=== PATIENT | male | born 1945 | race Hispanic/Latino ===

== ENCOUNTER → 2018-11-08 | Outpatient (CLI) | payer MEDICARE ==
[~2018-11-08] MED LIST: DIOVAN160 MG PO; FENOFIBRATE145 MG PO; FLOMAX0.4 MG PO; IBUPROFEN400 MG PO; IOPAMIDOL 370 MG/ML 200 ML INFUS..BTL INJ ONE; LANTUS 3ML100 UNITS/; LEVAQUIN500 MG PO; LEVOTHYROXINE50 MCG PO; MULTI-VITAMIN1 EACH; NOVOLOG MI100 UNIT/1; OMEPRAZOLE40 MG PO; SODIUM CHLORIDE 0.9% 50ML 50 ML ONE
[2018-11-08 16:45] LABS: CREATININE, SERUM 1.27 mg/dL (0.72-1.25)
--- NOTE | 2018-11-08 17:44 | Diagnostic Imaging Report ---
EXAMINATION: CHEST 2 VIEWS INDICATION: ^[id number] ^[id number] COMPARISON: 05/05/2017 FINDINGS: PA and lateral views TUBES and LINES: None. LUNGS: Lungs are well inflated. Mild biapical scarring. There is no evidence of pneumonia or pulmonary edema. PLEURA: No pleural effusion or pneumothorax. HEART AND MEDIASTINUM: The cardiomediastinal silhouette is unremarkable. BONES AND SOFT TISSUES: No acute osseous lesion. Soft tissues are unremarkable. UPPER ABDOMEN: No free air under the diaphragm. IMPRESSION: No acute thoracic abnormality. Signed by: Dr. Robbi Abel MD on 11/08/2018 5:41 PM
--- NOTE | 2018-11-09 07:25 | Diagnostic Imaging Report ---
EXAMINATION: CT of the abdomen and pelvis with contrast. TECHNIQUE: Spiral CT images of the abdomen and pelvis were performed from the lung bases to the lesser trochanters after the intravenous administration of 100 cc Isovue-370 and the oral administration of water. Coronal and sagittal reformatted images were obtained. COMPARISON: CT abdomen and pelvis without contrast 05/05/2017 CLINICAL HISTORY:Abdominal pain DISCUSSION: ABDOMEN/PELVIS: LOWER THORAX:Unremarkable. HEPATOBILIARY: No focal hepatic lesions. No intra-or extrahepatic biliary ductal dilation. Multiple radiopaque calculi within the dependent portion of the gallbladder. No pericholecystic inflammation. SPLEEN: No splenomegaly. PANCREAS: No focal masses or ductal dilatation. ADRENALS: No adrenal nodules. KIDNEYS/URETERS: No hydronephrosis, stones, or solid mass lesions. PELVIC ORGANS/BLADDER: Prostatomegaly with mass effect upon the bladder base, grossly unchanged relative to April 2017. Bladder is otherwise unremarkable. PERITONEUM/RETROPERITONEUM: No ascites. No pneumoperitoneum. LYMPH NODES: No pelvic sidewall, retroperitoneal, or mesenteric lymphadenopathy. VESSELS: Atherosclerotic calcification of the abdominal aorta without aneurysmal dilatation. Major branch vessels are patent. Conventional hepatic arterial anatomy. 2 left renal arteries and 2 right renal arteries. Portal vein, splenic vein, and central superior mesenteric vein are patent. GI TRACT: The large bowel is notable for multiple diverticula along the descending and sigmoid colon, without wall thickening or mesocolic inflammation. The appendix is normal. No small bowel dilatation to suggest obstruction. The stomach is partially collapsed with prominent rugal folds. BONES AND SOFT TISSUE: No osseous destructive lesions. Multilevel degenerative disc changes and facet arthropathy of the lumbar spine. Mild degenerative arthrosis of the hips. No focal soft tissue abnormalities. IMPRESSION: No acute intra-abdominal or pelvic CT abnormalities. Large bowel diverticulosis without evidence of diverticulitis. Cholelithiasis without evidence of acute cholecystitis. Prostatomegaly with resolution of previously noted findings concerning for bladder outlet obstruction. Atherosclerotic vascular disease. Signed by: Dr. Robert Zamora M.D. on 11/09/2018 7:21 AM
== END ==
LOC: CT 15:38
PROVIDERS: ATTEND Internal Medicine
DX: Z01.818 Encounter for other preprocedural examination (principal); R10.9 Unspecified abdominal pain; K57.30 Diverticulosis of large intestine without perforation or abscess without bleeding; K80.20 Calculus of gallbladder without cholecystitis without obstruction; N40.0 Benign prostatic hyperplasia without lower urinary tract symptoms
CPT/HCPCS: 36415; 71046; 74177; 82565; 84520; Q9967; 93005

== ENCOUNTER 2019-04-09 21:56 | Emergency (ER) | payer MEDICARE ==
[~2019-04-09] VITALS: Ht 175.3 cm; Wt 90.3 kg
[~2019-04-09 21:56] MED LIST changes: -IOPAMIDOL 370 MG/ML 200 ML INFUS..BTL INJ ONE; -SODIUM CHLORIDE 0.9% 50ML 50 ML ONE
--- OUTSIDE RECORDS SUMMARY | 2019-04-09 21:58 | XMS REPORT ---
Author Author [facility] Address Unknown Phone Unavailable Care Team Providers Care Picking Crew Supervisor Name Role Phone CATY BHANDARI Unavailable Unavailable Yudelka QUEZADA Unavailable Unavailable Problems This patient has no known problems. Allergies, Adverse Reactions, Alerts This patient has no known allergies or adverse reactions. Medications This patient has no known medications. Results Test Description Test Time Test Comments Text Results Atomic Results Result Comments CT ABDOMEN/PELVIS W 2018-11-09 07:12:00 [facility] [address] [place] [id number] Patient Name: LATIA MAX MR #: [id number] : 1945 Age/Sex: 73/M Req #: [id number] Adm Physician: Ordered by: CATY BHANDARI MD Report #: [id number] Location: CT Room/Bed: Procedure: [id number] CT/CT ABDOMEN/PELVIS W Exam Date: 11/08/18 Exam Time: 1718 REPORT STATUS: Signed EXAMINATION: CT of the abdomen and pelvis with contrast . TECHNIQUE: Spiral CT images of the abdomen and pelvis were performed from the lung bases to the lesser trochanters after the intravenous administration of 100 cc Isovue-370 and the oral administration of water. Coronal and sagittal reformatted images were obtained. COMPARISON: CT abdomen and pelvis without contrast 05/05/2017 CLINICAL HISTORY:Abdominal pain DISCUSSION: ABDOMEN/PELVIS: LOWER THORAX:Unremarkable. HEPATOBILIARY: No focal hepatic lesions. No intra-or extrahepatic biliary ductal dilation. Multiple radiopaque calculi within the dependent portion of the gallbladder. No pericholecystic inflammation. SPLEEN: No splenomegaly. PANCREAS: No focal masses or ductal dilatation. ADRENALS: No adrenal nodules. KIDNEYS/URETERS: No hydronephrosis, stones, or solid mass lesions. PELVIC ORGANS/BLADDER: Prostatomegaly with mass effect upon the bladder base, grossly unchanged relative to April 2017. Bladder is otherwise unremarkable. PERITONEUM/RETROPERITONEUM: No ascites. No pneumoperitoneum. LYMPH NODES: No pelvic sidewall, retroperitoneal, or mesenteric lymphadenopathy. VESSELS: Atherosclerotic calcification of the abdominal aorta without aneurysmal dilatation. Major branch vessels are patent. Conventional hepatic arterial anatomy. 2 left renal arteries and 2 right renal arteries. Portal vein, splenic vein, and central superior mesenteric vein are patent. GI TRACT: The large bowel is notable for multiple diverticula along the descending and sigmoid colon, without wall thickening or mesocolic inflammation. The appendix is normal. No small bowel dilatation to suggest obstruction. The stomach is partially collapsed with prominent rugal folds. BONES AND SOFT TISSUE: No osseous destructive lesions. Multilevel degenerative disc changes and facet arthropathy of the lumbar spine. Mild degenerative arthrosis of the hips. No focal soft tissue abnormalities. IMPRESSION: No acute intra-abdominal or pelvic CT abnormalities. Large bowel diverticulosis without evidence of diverticulitis. Cholelithiasis without evidence of acute cholecystitis. Prostatomegaly with resolution of previously noted findings concerning for bladder outlet obstruction. Atherosclerotic vascular disease. Signed by: Dr. Dai Panda M.D. on 11/09/2018 7:21 AM Dictated By: DAI PANDA MD 0 Transcribed By: ANNE on 11/09/18720 COPY TO: CATY BHANDARI MD CHEST 2 VIEWS 2018-11-08 17:41:00 [place] [address] Patient Name: LATIA MAX MR #: [id number] : 1945 Age/Sex: 73/M Req #: [id number] Adm Physician: Ordered by: CATY BHANDARI MD Report #: [id number] Location: CT Room/Bed: Procedure: [id number] DX/CHEST 2 VIEWS Exam Date: 11/08/18 Exam Time: 1644 REPORT STATUS: Signed EXAMINATION: CHEST 2 VIEWS INDICATION: [id number] COMPARISON: 05/05/2017 FINDINGS: PA and lateral views TUBES and LINES: None. LUNGS: Lungs are well inflated. Mild biapical scarring. There is no evidence of pneumonia or pulmonary edema. PLEURA: No pleural effusion or pneumothorax. HEART AND MEDIASTINUM: The cardiomediastinal silhouette is unremarkable. BONES AND SOFT TISSUES: No acute osseous lesion. Soft tissues are unremarkable. UPPER ABDOMEN: No free air under the diaphragm. IMPRESSION: No acute thoracic abnormality. Signed by: Dr. Robbi Ching MD on 11/08/2018 5:41 PM Dictated By: ROBBI CHING MD 40 Transcribed By: ANNE on 11/08/181740 COPY TO: CATY BHANDARI MD CT ABDOMEN/PELVIS [place] [address] Patient Name: LATIA MAX MR #: [id number] : 1945 Age/Sex: 71/M Req #: [id number] Adm Physician: Ordered by: DAVID QUEZADA MD Report #: [id number] Location: ER Room/Bed: Procedure: [id number] CT/CT ABDOMEN/PELVIS WO Exam Date: 05/05/17 Exam Time: 0100 REPORT STATUS: Signed EXAM: CT ABDOMEN/PELVIS WO DATE: 05/05/2017 1:03 AM INDICATION: Right flank pain COMPARISON: None TECHNIQUE: The abdomen and pelvis were scanned using a multidetector helical scanner. Coronal and sagittal reformations were obtained. Routine protocol performed. IV Contrast: None FINDINGS: Lack of IV contrast decreases sensitivity in evaluating abdominal and pelvic organs. LOWER THORAX: No consolidations LIVER/BILIARY: Question mild hepatic steatosis. GALLBLADDER: Cholelithiasis but otherwise unremarkable SPLEEN: Unremarkable PANCREAS: Unremarkable ADRENALS: No nodules KIDNEYS: Trace right pelvocaliectasis and mild bilateral to the level of the bladder. No obstructing stones are seen. Moderate right greater than left periureteral inflammatory changes. GI TRACT: No distention, wall thickening or evidence of obstruction. Normal appendix. VESSELS: Unremarkable noncontrast appearance PERITONEUM/RETROPERITONEUM: No free air or fluid LYMPH NODES: No lymphadenopathy REPRODUCTIVE ORGANS/BLADDER: Prostatomegaly with mild circumferential bladder wall thickening. SOFT TISSUES: Small fat-containing umbilical hernia. BONES: Multilevel degenerative changes with grade 1 anterolisthesis of L4 over L5 and bilateral L4-5 foraminal narrowing. IMPRESSION: 1. Prostatomegaly with evidence of chronic bladder outlet obstruction and/or acute cystitis. 2. Mild bilateral ureterectasis and right greater than left periureteral inflammatory changes suspicious for ascending infection/pyelitis. No obstructing stones. Note that noncontrast evaluation does not adequately assess for pyelonephritis. Signed by: Dr Isi Moralez MD on 05/05/2017 2:41 AM Dictated By: ISI MORALEZ MD 0 Transcribed By: ANNE on 05/05/17240 COPY TO: DAVID QUEZADA MD CHEST [facility] (PORTABLE) [place] [address] Patient Name: LATIA MAX MR #: [id number] : 1945 Age/Sex: 71/M Req #: [id number] [facility] Physician: Ordered by: DAVID QUEZADA MD Report #: [id number] Location: ER Room/Bed: Procedure: [id number] DX/CHEST SINGLE (PORTABLE) Exam Date: 05/05/17 Exam Time: 44 REPORT STATUS: Signed CHEST SINGLE (PORTABLE), 05/05/2017 12:23 AM Technique: CHEST SINGLE (PORTABLE) Comparison: None available. Clinical history: Fever Findings: Unremarkable portable appearance of the heart, mediastinum, lungs and pleural spaces. Impression: 1. Lines/Tubes: None 2. No acute abnormality. Signed by: Dr Isi Moralez MD on 05/05/2017 2:32 AM Dictated By: ISI MORALEZ MD 1 Transcribed By: ANNE on 05/05/17231 COPY TO: DAVID QUEZADA MD
--- NOTE | 2019-04-09 23:24 | Diagnostic Imaging Report ---
EXAMINATION: CHEST 2 VIEWS INDICATION: Short of breath COMPARISON: Chest radiograph 11/08/2018 FINDINGS: PA and lateral views TUBES and LINES: None. LUNGS: Lungs are well inflated. Lungs are clear. There is no evidence of pneumonia or pulmonary edema. PLEURA: No pleural effusion or pneumothorax. HEART AND MEDIASTINUM: The cardiomediastinal silhouette is unremarkable. BONES AND SOFT TISSUES: No acute osseous lesion. Soft tissues are unremarkable. Degenerative changes in the spine. UPPER ABDOMEN: No free air under the diaphragm. IMPRESSION: No acute thoracic radiographic abnormality. Signed by: Toney Lepe DO on 04/09/2019 11:21 PM
== END 2019-04-09 23:45 | disposition home or self-care (01) ==
LOC: ER 21:56
DX: R09.89 Other specified symptoms and signs involving the circulatory and respiratory systems (principal); J01.10 Acute frontal sinusitis, unspecified; E11.22 Type 2 diabetes mellitus with diabetic chronic kidney disease; I12.9 Hypertensive chronic kidney disease with stage 1 through stage 4 chronic kidney disease, or unspecified chronic kidney disease; E78.5 Hyperlipidemia, unspecified; E03.9 Hypothyroidism, unspecified; K21.9 Gastro-esophageal reflux disease without esophagitis
CPT/HCPCS: 71046; 87400

== ENCOUNTER → 2019-04-22 | Outpatient (CLI) | payer MEDICARE | LOC: CARD 03-27 14:17 | PROVIDERS: ATTEND Internal Medicine | DX: I73.9 Peripheral vascular disease, unspecified (principal) | CPT/HCPCS: 93925 ==

== ENCOUNTER → 2019-07-24 | Outpatient (CLI) | payer MEDICARE ==
--- NOTE | 2019-07-24 15:33 | Diagnostic Imaging Report ---
Right femur, 2 views. History: Right leg pain. Findings: The soft tissues are normal. Bone mineralization is normal. There is no evidence of fracture or dislocation. There are no lytic or sclerotic lesions. There is joint space narrowing and osteophytosis of the right hip and knee. IMPRESSION: Mild degenerative changes of the right hip and knee. Signed by: Jovanny Dias on 07/24/2019 3:30 PM
== END ==
LOC: RAD 14:06
PROVIDERS: ATTEND Internal Medicine
DX: M79.651 Pain in right thigh (principal)

== ENCOUNTER → 2019-08-13 | Outpatient (CLI) | payer MEDICARE | LOC: RAD 08:32 | PROVIDERS: ATTEND Internal Medicine | DX: R07.9 Chest pain, unspecified (principal) | CPT/HCPCS: 93306 ==

== ENCOUNTER 2019-12-17 10:58 | Inpatient (IN) | payer MEDICARE, OTHER ==
[~2019-12-17] VITALS: Ht 175.3 cm; Wt 82.7 kg
[2019-12-17 11:47] LABS: BASOPHILS % 0.1 % (0.0-1.0); HEMATOCRIT 40.1 % (38.2-49.6); HEMOGLOBIN 13.2 g/dL (14.0-18.0); LYMPHOCYTES # (AUTO) 0.7 (1.0-3.2); LYMPHOCYTES % 4.7 % (18.0-39.1); MEAN CORPUSCULAR HGB CONC 32.9 g/dL (31-35); MONOCYTES # (AUTO) 0.7 (0.2-0.8); MONOCYTES % 4.9 % (4.4-11.3); NEUTROPHILS # (AUTO) 12.9 (2.1-6.9); NEUTROPHILS % 89.7 % (38.7-80.0); PLATELET COUNT 210 x10e3/uL (140-360); RED BLOOD COUNT 4.72 x10e6/uL (4.3-5.7); RED CELL DISTRIBUTION WIDTH 14.1 % (11.7-14.4)
[2019-12-17] MEDS ORDERED: AZITHROMYCIN 500MG/NS 250 ML 250 ML IV STA (12:11)
[2019-12-17 12:26] LABS: ALBUMIN 2.7 g/dL (3.5-5.0); ALBUMIN/GLOBULIN RATIO 0.6 (0.8-2.0); ANION GAP 19.6 mmol/L (8-16); CREATININE, SERUM 2.17 mg/dL (0.72-1.25); POTASSIUM 4.6 mmol/L (3.5-5.1)
[2019-12-17] MEDS ORDERED: ALBUTEROL/IPRATROPIUM 3 ML NEB NEB STA (12:26)
--- NOTE | 2019-12-17 12:27 | Emergency Department Note ---
History of Present Illnes History of Present Illness Chief Complaint: COVID PUI History of Present Illness This is a 74 year old male brought by EMS for respiratory distress. Patient with two roomates who had tested positive for COVID-19 virus . Historian: Patient, Head Of Product/EMS Arrival Mode: [facility] Treatment ELDERLY SITTER: O2, EKG, See EMS Report Onset (how long ago): day(s) (3) Severity: severe Onset quality: gradual Duration (how long): day(s) (3) Timing of current episode: constant Progression: worsening Chronicity: new Context: Reports recent illness Relieving factors: none Exacerbating factors: none Associated symptoms: Reports fever/chills, Reports malaise, Reports shortness of breath Treatments prior to arrival: none Past Medical/Family History Physician Review I have reviewed the patient's past medical and family history. Any updates have been documented here. Past Medical History Recent Fever: Yes Clinical Suspicion of Infectio: Yes New/Unexplained Change in Ment: No Past Medical History: Hypertension, Diabetes, Hypothyroidism, GERD, H yperlipedemia, Chronic Kidney Disease Other Medical History: BPH Other Surgery: RIGHT ARM SURGERY Social History Smoking Cessation: Never Smoker Alcohol Use: None Any Illegal Drug Use: No Other Last Tetanus: UNK Review of Systems Review of Systems Constitutional: Reports fever, Reports malaise, Reports weakness EENTM: Reports no symptoms Cardiovascular: Reports no symptoms Respiratory: Reports no symptoms, Reports cough Gastrointestinal: Reports no symptoms Genitourinary: Reports no symptoms Musculoskeletal: Reports no symptoms Integumentary: Reports no symptoms Neurological: Reports no symptoms Psychological: Reports no symptoms Endocrine: Reports no symptoms Hematological/Lymphatic: Reports no symptoms Physical Exam Related Data Allergies: Coded Allergies: No Known Allergies (Unverified , 05/05/17) Triage Vital Signs Vital Signs Date Time Temp Pulse Resp B/P (MAP) Pulse Ox O2 Delivery O2 Flow Rate FiO2 12/17/19 11:00 98.5 86 22 102/45 96 Vital signs reviewed: Yes Physical Exam CONSTITUTIONAL Constitutional: Present diaphoretic, Present distressed, Present ill appearing HENT HENT: Present normocephalic, Present atraumatic, Present oropharynx clear/moist, Present nose normal HENT L/R: Present left ext ear normal, Present right ext ear normal EYES Eyes: Reports PERRL, Reports conjunctivae normal NECK Neck: Present ROM normal PULMONARY Pulmonary: Present respiratory distress, Present other (tachypneic) CARDIOVASCULAR Cardiovascular: Present regular rhythm, Present heart sounds normal, Present capillary refill normal, Present normal rate GASTROINTESTINAL Abdominal: Present soft, Present nontender, Present bowel sounds normal GENITOURINARY Genitourinary: Present exam deferred SKIN Skin: Present warm, Present dry MUSCULOSKELETAL Musculoskeletal: Present ROM normal NEUROLOGICAL Neurological: Present alert, Present oriented x 3, Present no gross motor or sensory deficits PSYCHOLOGICAL Psychological: Present mood/affect normal, Present judgement normal Results Laboratory Result Diagram: 12/17/19 1130 Laboratory Laboratory Tests Test 12/17/19 11:30 White Blood Count 14.39 x10e3/uL (4.8-10.8) Red Blood Count 4.72 x10e6/uL (4.3-5.7) Hemoglobin 13.2 g/dL (14.0-18.0) Hematocrit 40.1 % (38.2-49.6) Mean Corpuscular Volume 85.0 fL (81-99) Mean Corpuscular Hemoglobin 28.0 pg (28-32) Mean Corpuscular Hemoglobin Concent 32.9 g/dL (31-35) Red Cell Distribution Width 14.1 % (11.7-14.4) Platelet Count 210 x10e3/uL (140-360) Neutrophils (%) (Auto) 89.7 % (38.7-80.0) Lymphocytes (%) (Auto) 4.7 % (18.0-39.1) Monocytes (%) (Auto) 4.9 % (4.4-11.3) Eosinophils (%) (Auto) 0.0 % (0.0-6.0) Basophils (%) (Auto) 0.1 % (0.0-1.0) Neutrophils # (Auto) 12.9 (2.1-6.9) Lymphocytes # (Auto) 0.7 (1.0-3.2) Monocytes # (Auto) 0.7 (0.2-0.8) Eosinophils # (Auto) 0.0 (0.0-0.4) Basophils # (Auto) 0.0 (0.0-0.1) Absolute Immature Granulocyte (auto 0.09 x10e3/uL (0-0.1) Lab results reviewed: Yes Imaging Imaging results reviewed: Yes Impressions [facility] [address] [place] [address] Patient Name: LATIA MAX MR #: [id number] : 1945 Age/Sex: 74/M Req #: [id number] Adm Physician: Ordered by: ROBERT COLUNGA DO Report #: [id number] Location: ER Room/Bed: Procedure: [id number] DX/CHEST SINGLE (PORTABLE) Exam Date: 12/17/19 Exam Time: 1200 REPORT STATUS: Signed EXAM: CHEST SINGLE (PORTABLE) DATE: 12/17/2019 12:00 PM INDICATION: Shortness of breath, weakness COMPARISON: 04/09/2019 FINDINGS: The trachea is midline. There are mildly increased interstitial opacities present bilaterally. There is no evidence for large focal consolidation, pneumothorax, or significant pleural effusion. The cardiomediastinal silhouette is within normal limits. No acute osseous abnormality is identified. The surrounding soft tissues are unremarkable. IMPRESSION: Nonspecific mildly increased interstitial markings noted bilaterally. A viral pneumonitis cannot be excluded. No evidence for focal consolidation. Signed by: Dr. Gilmer Palacio MD on 12/17/2019 12:36 PM Dictated By: GILMER PALACIO MD [id number] Transcribed By: ANNE on 12/17/19 1236 COPY TO: ROBERT COLUNGA DO~ Critical Care Time Total Critical Care Time (min): 31 Critcal care necessary due to: respiratory failure Critcal care time spent by me: obtaining hx from patient/surrogate, order/perform tx or interventions, order/review laboratory studies, order/review radiographic studies, pulse oximetry, re-evaluation of patient condition Assessment & Plan Medical Decision Making MDM 74 yom with exposure to roomates with (+) COVID tests brought by EMS in respiratory distress. Patient with initial low oxygen saturation, patient responded well to supplemental oxygen. Diff Dx : Pneumonia, CHF, COVID-19 infection. Plan to admit for continuous pulse oximetry monitoring. Assessment & Plan Final Impression: (1) Acute hypoxemic respiratory failure due to COVID-19 (2) Renal failure Depart Disposition: ADMITTED Last Vital Signs Date Time Temp Pulse Resp B/P (MAP) Pulse Ox O2 Delivery O2 Flow Rate FiO2 12/17/19 12:10 99.7 92 36 100/44 96 Home Meds Reported Medications Atorvastatin Calcium (ATORVASTATIN CALCIUM) 20 Mg Tablet, 20 MG PO DAILY 12/17/19 Pregabalin (Pregabalin) 100 Mg Capsule, 100 MG PO TID 12/17/19 Levothyroxine Sodium (LEVOTHYROXINE SODIUM) 100 Mcg Tablet, 100 MCG PO DAILY 12/17/19 Levofloxacin (LEVAQUIN) 500 Mg Tablet, 500 MG PO DAILY, TAB 05/08/17 Multivitamin (MULTI-VITAMIN DAILY) 1 Each Tablet 05/05/17 Tamsulosin Hcl* (FLOMAX*) 0.4 Mg Cap, 0.4 MG PO DAILY, #30 CAP 05/05/17 Insulin Glargine (LANTUS 3ML PEN) 100 Units/1 Ml Inj, 80 UNITS HS 05/05/17 Insuln Asp Prt/Insulin Aspart (NOVOLOG MIX 70-30 FLEXPEN SYRN) 100 Unit/1 Ml Insuln.pen 05/05/17 Fenofibrate Nanocrystallized (FENOFIBRATE) 145 Mg Tablet, 145 MG PO DAILY 05/05/17 Ibuprofen (IBUPROFEN) 400 Mg Tablet, 800 MG PO Q12H, TAB 05/05/17 Omeprazole (OMEPRAZOLE) 40 Mg Capsule.dr, 40 MG PO DAILY 05/05/17 Medications in the ED Azithromycin 250 ml @ 200 mls/hr ONCE STAT IV ; Start 12/17/19 at 12:11; Stop 12/17/19 at 13:25 ROBERT COLUNGA DO Dec 17, 2019 12:27
[2019-12-17 12:32] LABS: CREATINE KINASE MB 1.7 ng/mL (0-5.0)
[2019-12-17] MEDS ORDERED: ACETAMINOPHEN 325 MG TAB ONE (12:33)
--- NOTE | 2019-12-17 12:40 | Diagnostic Imaging Report ---
EXAM: CHEST SINGLE (PORTABLE) DATE: 12/17/2019 12:00 PM INDICATION: Shortness of breath, weakness COMPARISON: 04/09/2019 FINDINGS: The trachea is midline. There are mildly increased interstitial opacities present bilaterally. There is no evidence for large focal consolidation, pneumothorax, or significant pleural effusion. The cardiomediastinal silhouette is within normal limits. No acute osseous abnormality is identified. The surrounding soft tissues are unremarkable. IMPRESSION: Nonspecific mildly increased interstitial markings noted bilaterally. A viral pneumonitis cannot be excluded. No evidence for focal consolidation. Signed by: Dr. Gilmer Godoy MD on 12/17/2019 12:36 PM
[2019-12-17] MEDS ORDERED: ACETAMINOPHEN 325 MG TAB PO NR (12:45)
--- NOTE | 2019-12-17 13:39 | NUR ---
Contacted [facility] transfer center to transfer patient, spoke with Erena- floor worker transfer bay stated all [facility] facilities are at full capacity. [facility]
--- NOTE | 2019-12-17 13:51 | NUR ---
PT PLACED ON VENTI MASK @ 40%, PT INITIALLY ON NONREABREATHER.
[2019-12-17] MEDS ORDERED: ETOMIDATE 2 MG/ML 10 ML INJ IV ONE (14:51)
[2019-12-17] MEDS ORDERED: SUCCINYLCHOLINE CHLORIDE 20 MG/ML 10ML VIAL ONE (14:51)
[2019-12-17] MEDS ORDERED: MIDAZOLAM HCL 2 MG/2 ML VIAL ONE (14:51)
--- NOTE | 2019-12-17 15:53 | NUR ---
MOT and face sheet given to PRAVEEN Mckeon to attempt transfer to alternate facilities.
--- NOTE | 2019-12-17 19:10 | NUR ---
NURSING REPORT GIVEN TO ROBERTA AMARO.
[2019-12-17] MEDS ORDERED: ALBUTEROL SULFATE HFA 8GM INHALATION AEROSOL INH PRN (19:30)
[2019-12-17] MEDS ORDERED: DEXTROSE 50% SYRINGE 50 ML IV PRN (19:45)
[2019-12-17] MEDS ORDERED: ENOXAPARIN SOD INJ 40 MG/0.4 ML SYR SC SCH (20:30)
[2019-12-17] MEDS: CEFTRIAXONE SOD 1 GM/NS 50 ML 50 ML IV SCH (20:45)
[2019-12-17] MEDS: INSULIN REGULAR, HUMAN 100 UNIT/1 ML 3ML VIAL SQ SCH (21:00)
[2019-12-17] MEDS: INSULIN GLARGINE 100 UNITS/ML VIAL SQ SCH (21:00)
[2019-12-17] MEDS ORDERED: ZOLPIDEM TARTRATE 5 MG TAB PO PRN (21:00)
[2019-12-17] MEDS ORDERED: SODIUM CHLORIDE 0.9% 1000ML 1,000 ML IV ONE (21:00)
[2019-12-17 21:56] LABS: CLARITY,URINE SL CLOUDY (CLEAR); COLOR,URINE STRAW (YELLOW)
[2019-12-17 21:57] LABS: BILIRUBIN,URINE NEGATIVE (NEGATIVE); KETONES,URINE NEGATIVE (NEGATIVE); LEUKOCYTE ESTERASE ,URINE NEGATIVE (NEGATIVE); NITRITE,URINE NEGATIVE (NEGATIVE); PROTEIN,URINE DIPSTICK 1+ (NEGATIVE); URINE UROBILINOGEN 0.2 mg/dL (0.2 - 1)
[2019-12-17 22:08] LABS: BACTERIA,URINE MANY /HPF; EPITHELIAL CELLS,URINE FEW /LPF; WBC,URINE (MAN) 0-5 /HPF (0-5)
[2019-12-17 22:15] VITALS: BP 105/80
[2019-12-17] MEDS ORDERED: ATORVASTATIN CA20 MG PO (23:06)
[2019-12-17] MEDS ORDERED: PREGABALIN100 MG PO (23:06)
[2019-12-17] MEDS ORDERED: LEVOTHYROXINE100 MCG PO (23:06)
--- NOTE | 2019-12-17 23:15 | NUR ---
Patient has blood sugar monitor on left upper arm from home. Results showing blood sugar 174. Patient refusing insulin at this time.
--- NOTE | 2019-12-17 23:19 | NUR ---
Patient currently awake and resting in bed, O2 98% on 3L NC. Denies any needs at this time. Ribeiro catheter patent and draining to gravity, bag hung below bladder. Bed locked and in lowest position, HOB elevated, side rails upx3, call light placed within reach. Patient instructed to call for assistance if needed, verbalized understanding. All safety measures in place. Will continue to monitor.
--- NOTE | 2019-12-17 23:22 | NUR ---
H&P cc: sob HPI: 74yoM, developed sob and cough, after 2 household members were diagnosed with COVID19 infection. Pt is SOB on exertions. PMH: DM2, hypothyroidism, BPH, Sepsis due to E.coli UTI, hematuria, HTN, HLD, PShx: unknown Allergies; see emr Fh/SH; unknown Meds; see MAR ROS; unreliable v/s; revd PE tired appearing anicteric ns1s2 Reduced BS soft nt nd no e/t skin dry flat affect awake; labs/meds revd A/P: Viral pneumonitis- ceftiraxone/azithromycin/dexamethasone; O2 support. MAHI- IVF UTI- IV ceftiraxone DM- lantus; hab1c/lipids BPH- flomax HTN Hypothyroidism- synthroid Prop: lovenox; dispo: f/u COVID testing; Humphrey Feliz MD, PhD.
[2019-12-17 23:27] VITALS: BP 105/80
[2019-12-17 23:30] VITALS: BP 105/80
[2019-12-18] VITALS (8 sets, daily range): BP systolic 98–123; BP diastolic 52–61
--- NOTE | 2019-12-18 01:26 | Consultation ---
DATE OF CONSULTATION: Pulmonary Critical Care Consultation CHIEF COMPLAINT: Fatigue, dyspnea, and fevers. HISTORY OF PRESENT ILLNESS: The patient is a 74-year-old man. He has a history of benign prostatic hypertrophy as well as diabetes and hypertension. He reports feeling ill for about 11 days. He notes fatigue and difficulty breathing. He has malaise. He also had some fevers and some mild cough. He does not complain of abdominal pain, nausea, or vomiting. PAST SURGICAL HISTORY: Status post cystoscopy and retrograde urethrogram. PAST MEDICAL HISTORY: 1. Diabetes. 2. Benign prostatic hypertrophy. 3. Hypertension. 4. Hypothyroidism. ALLERGIES: THE PATIENT HAS NO KNOWN DRUG ALLERGIES. SOCIAL HISTORY: The patient is not a smoker or drinker. FAMILY HISTORY: Significant for hypertension and diabetes. REVIEW OF SYSTEMS: The patient has a fever to 100.3. He also complains of some fatigue and some difficulty breathing. He has some mild cough. He has no chest pain. He has no abdominal pain. He has no nausea or vomiting. He has no leg edema. PHYSICAL EXAMINATION: VITAL SIGNS: The patient is afebrile now, but had a T-max of 100.3. Blood pressure is 104/57, pulse is 80, saturation is 97% on the Venturi mask with 15 L set at 60%. HEENT: Shows no facial swelling or erythema. CARDIAC: Reveals regular rate and rhythm with normal S1 and S2. LUNGS: Auscultation of lungs reveals crackles at the bases. There is no wheezing. ABDOMEN: Soft and nontender. There is no rebound or guarding. EXTREMITIES: Show no leg edema or calf tenderness. There is no cyanosis or clubbing. SKIN: Shows no rashes. NEUROLOGICAL: Shows no focal abnormalities. LABORATORY DATA: White blood cell count is 14.4, hemoglobin is 13.2, and platelet count is 210. The BUN to creatinine ratio is 39 and 2.17. Carbon dioxide is 17 and the anion gap is increased to 19.6. Albumin is 2.7. The COVID serology is pending. RADIOGRAPHIC DATA: Chest x-ray shows increased interstitial markings, possibly suggestive of pneumonitis. IMPRESSION: 1. Viral pneumonia and possible coronavirus disease 2019 infection. 2. Acute kidney injury. 3. Diabetes. 4. History of benign prostatic hypertrophy. 5. History of nephrolithiasis. 6. History of hypothyroidism. 7. History of hypertension. PLAN: 1. IV fluids x1 liter. 2. Begin antibiotics. 3. Ribeiro catheter. 4. Renal ultrasound. 5. Dexamethasone. 6. Await COVID-19 results. MD DIONISIO Denise/SHERICE /[id number]
[2019-12-18] MEDS: LEVOTHYROXINE SODIUM 50 MCG TAB PO SCH (05:48)
[2019-12-18 05:57] LABS: BASOPHILS % 0.1 % (0.0-1.0); EOSINOPHILS % 0.1 % (0.0-6.0); HEMATOCRIT 34.8 % (38.2-49.6); HEMOGLOBIN 11.7 g/dL (14.0-18.0); LYMPHOCYTES # (AUTO) 0.6 (1.0-3.2); LYMPHOCYTES % 5.9 % (18.0-39.1); MEAN CORPUSCULAR HEMOGLOBIN 29.5 pg (28-32); MEAN CORPUSCULAR HGB CONC 33.6 g/dL (31-35); MEAN CORPUSCULAR VOLUME 87.7 fL (81-99); MONOCYTES # (AUTO) 0.3 (0.2-0.8); NEUTROPHILS # (AUTO) 9.2 (2.1-6.9); NEUTROPHILS % 90.4 % (38.7-80.0); PLATELET COUNT 198 x10e3/uL (140-360); RED BLOOD COUNT 3.97 x10e6/uL (4.3-5.7); RED CELL DISTRIBUTION WIDTH 14.6 % (11.7-14.4)
[2019-12-18] MEDS ORDERED: LEVOTHYROXINE SODIUM 50 MCG TAB PO SCH (06:00)
--- NOTE | 2019-12-18 06:06 | NUR ---
Dr. Feliz here to see patient. Received orders to consult Dr. Mireles.
[2019-12-18 06:12] LABS: ALBUMIN 2.1 g/dL (3.5-5.0); ALBUMIN/GLOBULIN RATIO 0.5 (0.8-2.0); ANION GAP 13.9 mmol/L (8-16); CALCIUM 8.4 mg/dL (8.4-10.2); CREATININE, SERUM 2.07 mg/dL (0.72-1.25); POTASSIUM 3.9 mmol/L (3.5-5.1)
--- NOTE | 2019-12-18 06:34 | NUR ---
Routine consult called to Dr. Mireles. Left message with answering service.
[2019-12-18 06:43] LABS: CHOL/HDL RATIO 6.8 (3.9-4.7)
[2019-12-18] MEDS: INSULIN REGULAR, HUMAN 100 UNIT/1 ML 3ML VIAL SQ SCH ×4 (09:59→22:28)
[2019-12-18] MEDS: FENOFIBRATE 145 MG TAB PO SCH (10:06)
[2019-12-18] MEDS: MULTIVITAMINS/MINERALS TAB PO SCH (10:06)
[2019-12-18] MEDS: TAMSULOSIN HCL 0.4 MG CAP PO SCH (10:06)
[2019-12-18] MEDS: DEXAMETHASONE SOD PHOS 10 MG/1 ML VIAL IV SCH (10:06)
[2019-12-18] MEDS: VALSARTAN 160 MG TAB PO SCH (10:06)
[2019-12-18] MEDS: PANTOPRAZOLE SOD 40 MG TABEC PO SCH (10:06)
[2019-12-18 11:10] LABS: ANISOCYTOSIS SLIGHT; LYMPHOCYTES % (MANUAL) 6 % (19-48); MONOCYTES % (MANUAL) 3 % (3.4-9.0); NEUTROPHILS % (MANUAL) 91 % (40-74); PLATELET ESTIMATE ADEQUATE; PLATELET MORPHOLOGY COMMENT NORMAL; RBC MORPHOLOGY COMMENT NORMAL
[2019-12-18] MEDS ORDERED: SODIUM CHLORIDE 0.9% 250ML 250 ML ONE (11:43)
--- NOTE | 2019-12-18 12:01 | Diagnostic Imaging Report ---
EXAM: Renal Ultrasound INDICATION: ^MAHI COMPARISON: CT abdomen and pelvis of 11/08/2018 TECHNIQUE: Transverse and longitudinal images of the kidneys and bladder were obtained. FINDINGS: Right Kidney: Length: 12.4 cm Appearance: Normal echogenicity. Collecting system: No hydronephrosis Stones: None Cyst/Mass: None Left Kidney: Length: 9.2 cm Appearance: Normal echogenicity. Collecting system: No hydronephrosis Stones: None Cyst/Mass: None Bladder: Ribeiro catheter in the decompressed bladder. Incidental note made of hepatic steatosis. IMPRESSION: No hydronephrosis or renal calculi. Hepatic steatosis Signed by: Garrick Tellez MD on 12/18/2019 11:58 AM
[2019-12-18] MEDS: AZITHROMYCIN 500MG/NS 250 ML 250 ML IV SCH (12:14)
--- NOTE | 2019-12-18 13:27 | NUR ---
infectious disease consultation Covid 19 Fatigue, dyspnea, and fevers. HISTORY OF PRESENT ILLNESS: The patient is a 74-year-old man. He has a history of benign prostatic hypertrophy as well as diabetes and hypertension. Patient comes in to the emergency room with his not feeling well with shortness of breath cough fatigue apparently has been sick for about 10-12 days. He notes fatigue and difficulty breathing. He has malaise. He also had some fevers and some mild cough. He does not complain of abdominal pain, nausea, or vomiting. PAST SURGICAL HISTORY: Status post cystoscopy and retrograde urethrogram. PAST MEDICAL HISTORY: 1. Diabetes. 2. Benign prostatic hypertrophy. 3. Hypertension. 4. Hypothyroidism. ALLERGIES: THE PATIENT HAS NO KNOWN DRUG ALLERGIES. SOCIAL HISTORY: The patient is not a smoker or drinker. FAMILY HISTORY: Significant for hypertension and diabetes. REVIEW OF SYSTEMS: The patient has a fever to 100.3. He also complains of some fatigue and some difficulty breathing. He has some mild cough. He has no chest pain. He has no abdominal pain. He has no nausea or vomiting. He has no leg edema. PHYSICAL EXAMINATION: VITAL SIGNS: The patient is afebrile now, but had a T-max of 100.3. Blood pressure is 104/57, pulse is 80, saturation is 97% on the Venturi mask with 15 L set at 60%. HEENT: Shows no facial swelling or erythema. CARDIAC: Reveals regular rate and rhythm with normal S1 and S2. LUNGS: Auscultation of lungs reveals crackles at the bases. There is no wheezing. ABDOMEN: Soft and nontender. There is no rebound or guarding. EXTREMITIES: Show no leg edema or calf tenderness. There is no cyanosis or clubbing. SKIN: Shows no rashes. NEUROLOGICAL: Shows no focal abnormalities. LABORATORY DATA: White blood cell count is 14.4, hemoglobin is 13.2, and platelet count is 210. The BUN to creatinine ratio is 39 and 2.17. Carbon dioxide is 17 and the anion gap is increased to 19.6. Albumin is 2.7. The COVID serology is pending. RADIOGRAPHIC DATA: Chest x-ray shows increased interstitial markings, possibly suggestive of pneumonitis. IMPRESSION: 1. coronavirus disease 2019 infection.I am also concerned about superimposed bacterial infection 2. Acute kidney injury./underlying chronic kidney disease 3. Diabetes. 4. History of benign prostatic hypertrophy. 5. History of nephrolithiasis. 6. History of hypothyroidism. 7. History of hypertension. hypoxemia despite failure present on admission Recommend Rocephin 1 g daily 5 days azithromycin 5 mg IV piggyback daily for 3 days heparin subcu 5000 subcu every 12 hours Decadron 6 mg IV every 24 hours supplement with vitamin C and vitamin D and zinc oxygenation to keep O2 sat more than 91% recheck CBC recheck in panel
[2019-12-18] MEDS ORDERED: ALBUMIN 25% 25GM 100ML 0.25 GM/ML BTL IV ONE (15:45)
--- NOTE | 2019-12-18 16:27 | NUR ---
jeronimo cath removed- patient due to void by [id number]
[2019-12-18] MEDS ORDERED: ALBUMIN 25% 25GM 100ML 100 ML IV ONE (16:30)
--- NOTE | 2019-12-18 16:34 | Progress Note ---
DATE: SUBJECTIVE: The patient received some IV fluids yesterday. His creatinine improved slightly and he feels better. He is down to 2 L of oxygen. He still feels weak. PHYSICAL EXAMINATION: VITAL SIGNS: The patient is afebrile. The blood pressure is 123/55, saturation is 97% on 2 L. T-max is 100.5. HEENT: No facial swelling or erythema. CARDIAC: Regular rate and rhythm with normal S1, S2. LUNGS: Auscultation of lungs reveals rhonchorous breath sounds bilaterally. There is no wheezing. ABDOMEN: Soft, nontender. There is no rebound or guarding. EXTREMITIES: No leg edema or calf tenderness. There is no cyanosis or clubbing. SKIN: No rashes. NEUROLOGICAL: No focal abnormalities. LABORATORY DATA: BUN to creatinine ratio is 50 to 2.07, and the carbon dioxide is 21. Other electrolytes are within normal limits. The albumin is 2.1. White blood cell count is 10.2 and hemoglobin 11.7. Platelet count is 198,000. RADIOGRAPHIC DATA: Renal ultrasound shows no hydronephrosis. Radiographic data shows some mild increased markings of viral pneumonitis. IMPRESSION: 1. Viral pneumonia and coronavirus disease-19 infection. 2. Acute kidney injury. 3. Diabetes. 4. Benign prostatic hypertrophy. 5. History of nephrolithiasis. 6. Hypertension. PLAN: 1. Continue to monitor creatinine and give small amounts of fluid as needed. 2. Discontinue Ribiero. 3. Continue current antibiotics. 4. Continue dexamethasone. 5. Cough suppressant. 6. Monitor and control blood sugars. Rafael Blackburn MD [facility] /[id number]
[2019-12-18] MEDS: INSULIN GLARGINE 100 UNITS/ML VIAL SQ SCH (21:00)
--- NOTE | 2019-12-18 21:45 | NUR ---
IM- progress note O/N see below ROS; unreliable v/s; revd PE tired appearing anicteric ns1s2 Reduced BS soft nt nd no e/t skin dry flat affect awake; labs/meds revd A/P: Viral pneumonitis- ceftiraxone/azithromycin/dexamethasone; O2 support. MAHI- IVF UTI- IV ceftiraxone DM- lantus; hab1c/lipids BPH- flomax HTN Hypothyroidism- synthroid Prop: lovenox; dispo: f/u COVID testing; 7- Hba1c/LDL ; cont care; Humphrey Feliz MD, PhD.
[2019-12-18] MEDS: GUAIFENESIN/CODEINE 10 ML CUP PO PRN (21:47)
--- NOTE | 2019-12-18 21:47 | NUR ---
PATIENT VOIDS IN THE TOILET.
[2019-12-18] MEDS: CEFTRIAXONE SOD 1 GM/NS 50 ML 50 ML IV SCH (22:26)
[2019-12-18] MEDS: HEPARIN SOD (PORCINE) 5,000 UNIT/ML VIAL SC SCH (22:26)
--- NOTE | 2019-12-18 23:43 | NUR ---
Patient wants to take lyrica 100 mg for leg pain. He takes this at home TID. Called Dr. Feliz no answer. Message left. Waiting for reply
[2019-12-19] VITALS (8 sets, daily range): BP systolic 98–115; BP diastolic 53–63
--- NOTE | 2019-12-19 01:00 | NUR ---
No response from Dr. Feliz. Patient refused Tylenol.
[2019-12-19 05:06] LABS: BASOPHILS % 0.1 % (0.0-1.0); HEMOGLOBIN 12.5 g/dL (14.0-18.0); LYMPHOCYTES # (AUTO) 0.5 (1.0-3.2); LYMPHOCYTES % 4.4 % (18.0-39.1); MEAN CORPUSCULAR HEMOGLOBIN 28.3 pg (28-32); MEAN CORPUSCULAR HGB CONC 32.9 g/dL (31-35); MEAN CORPUSCULAR VOLUME 86.2 fL (81-99); MONOCYTES # (AUTO) 0.4 (0.2-0.8); MONOCYTES % 3.7 % (4.4-11.3); NEUTROPHILS # (AUTO) 9.5 (2.1-6.9); NEUTROPHILS % 91.5 % (38.7-80.0); PLATELET COUNT 250 x10e3/uL (140-360); RED BLOOD COUNT 4.41 x10e6/uL (4.3-5.7); RED CELL DISTRIBUTION WIDTH 14.5 % (11.7-14.4)
[2019-12-19 05:29] LABS: ALBUMIN 2.6 g/dL (3.5-5.0); ALBUMIN/GLOBULIN RATIO 0.6 (0.8-2.0); ANION GAP 16.8 mmol/L (8-16); CALCIUM 9.1 mg/dL (8.4-10.2); CREATININE, SERUM 1.43 mg/dL (0.72-1.25); POTASSIUM 4.8 mmol/L (3.5-5.1)
[2019-12-19] MEDS: LEVOTHYROXINE SODIUM 50 MCG TAB PO SCH (05:36)
[2019-12-19] MEDS: INSULIN REGULAR, HUMAN 100 UNIT/1 ML 3ML VIAL SQ SCH ×4 (07:30→21:00)
--- NOTE | 2019-12-19 07:34 | NUR ---
PATIENT IN BED RESTING WITH HEAD OF BED ELEVATED, NO S/S OF DISTRESS. O2 IN PLACE VIA N/C. BED IN LOWER POSITION, CALL LIGHT AT REACH.
[2019-12-19] MEDS: VALSARTAN 160 MG TAB PO SCH (09:00)
[2019-12-19] MEDS: HEPARIN SOD (PORCINE) 5,000 UNIT/ML VIAL SC SCH ×2 (09:02→21:58)
[2019-12-19] MEDS: DEXAMETHASONE SOD PHOS 10 MG/1 ML VIAL IV SCH (09:03)
[2019-12-19] MEDS: TAMSULOSIN HCL 0.4 MG CAP PO SCH (09:03)
[2019-12-19] MEDS: PANTOPRAZOLE SOD 40 MG TABEC PO SCH (09:03)
[2019-12-19] MEDS: FENOFIBRATE 145 MG TAB PO SCH (09:03)
[2019-12-19] MEDS: PREGABALIN 50 MG CAP PO SCH ×3 (09:03→21:55)
[2019-12-19] MEDS: MULTIVITAMINS/MINERALS TAB PO SCH (09:03)
--- NOTE | 2019-12-19 10:33 | Diagnostic Imaging Report ---
EXAMINATION: CHEST SINGLE (PORTABLE) INDICATION: Viral pneumonia COMPARISON: Chest radiograph 12/17/2019 FINDINGS: LINES/TUBES:EKG leads overlie the chest. LUNGS:The lungs are moderately inflated. Persistent bilateral predominantly peripheral hazy airspace opacities. PLEURA:No pleural effusion or pneumothorax. MEDIASTINUM:The cardiomediastinal silhouette appears unchanged in size and shape. BONES/SOFT TISSUES:No acute osseous injury. ABDOMEN:No free air under the diaphragm. IMPRESSION: Persistent bilateral predominantly peripheral hazy airspace opacities consistent with viral pneumonia. Signed by: Garrick Tellez MD on 12/19/2019 10:30 AM
[2019-12-19] MEDS: GUAIFENESIN/CODEINE 10 ML CUP PO PRN ×3 (11:00→22:54)
--- NOTE | 2019-12-19 11:18 | Progress Note ---
DATE: SUBJECTIVE: The patient is seen and evaluated. Available labs and notes reviewed. REVIEW OF SYSTEMS: Still short of breath when ambulates to the bathroom and back, but overall no acute distress. Remains on 2 L of oxygen. Had saturations at 91% to 96%. PHYSICAL EXAMINATION: VITAL SIGNS: Temperature 97.6, pulse 72, respirations 16, and blood pressure 115/53. MEDICATIONS: Dexamethasone, Rocephin, and Zithromax. LABORATORY STUDIES: White count 10.38, hemoglobin 12.5, and platelet 250. Sodium 140, potassium 4.8, and creatinine 1.43, improved from 2.07. Serology; coronavirus PCR positive on 12/16. MICROBIOLOGY: No new microbiology. RADIOLOGY: Chest x-ray from today showed persistent bilateral predominantly perihilar hazy airspace opacities consistent with viral pneumonia. ASSESSMENT AND PLAN: 1. COVID-19 infection. 2. Consider superimposed bacterial infection. 3. Lwxri-sq-tvhtcsc kidney disease, improving creatinine little. 4. Diabetes. 5. Benign prostatic hypertrophy. 6. Hypothyroidism. 7. Hypertension. 8. Nephrolithiasis. 9. Continue with Rocephin 5 days and Zithromax 3 days total. Remains on dexamethasone. Start zinc sulfate and vitamin C. Dictated by Jacky Mcqueen PA-C (Al) Mylene Mireles MD /MODL /[id number]
--- NOTE | 2019-12-19 11:37 | NUR ---
PATIENT NOTED WITH COUGH, PRN COUGH MEDICATION GIVEN ORDERED. NO MORE COUGH OBSERVED. WILL CONTINUE TO MONITOR.
[2019-12-19] MEDS: AZITHROMYCIN 500MG/NS 250 ML 250 ML IV SCH (12:36)
[2019-12-19] MEDS: ZINC SULFATE 220 MG CAP PO SCH (12:36)
[2019-12-19] MEDS: ASCORBIC ACID 500 MG TAB PO SCH (12:36)
--- NOTE | 2019-12-19 12:59 | Progress Note ---
DATE: SUBJECTIVE: The patient's Ribeiro was removed. He is still on 2 L of oxygen. He has some cough, but overall feels improved. PHYSICAL EXAMINATION: VITAL SIGNS: The patient is afebrile. The blood pressure is 115/57 and saturation is 91%. Pulse is 72. HEENT: Shows no facial swelling or erythema. CARDIAC: Reveals regular rate and rhythm with normal S1 and S2. LUNGS: Auscultation of lungs reveals crackles at the bases. There is no wheezing. ABDOMEN: Soft and nontender. There is no rebound or guarding. EXTREMITIES: Shows no leg edema or calf tenderness. There is no cyanosis or clubbing. SKIN: Shows no rashes. NEUROLOGICAL: Shows no focal abnormalities. LABORATORY DATA: BUN to creatinine ratio is improved to 49/1.43. Other electrolytes are within normal limits. White blood cell count is 10.4 and the hemoglobin is 12.5. Platelet count is 250. RADIOGRAPHIC DATA: Chest x-ray shows bilateral pulmonary infiltrates. IMPRESSION: 1. Viral pneumonia and COVID-19 infection. 2. Acute kidney injury. 3. Diabetes. 4. Prostatic hypertrophy. 5. Hypertension. PLAN: 1. Continue to wean oxygen. 2. Complete antibiotics. 3. Complete dexamethasone. 4. Monitor and control blood sugars. Rafael Blackburn MD [facility]/MOD[facility] /[id number]
--- NOTE | 2019-12-19 13:52 | NUR ---
IM- progress note O/N see below ROS; unreliable v/s; revd PE tired appearing anicteric ns1s2 Reduced BS soft nt nd no e/t skin dry flat affect awake; labs/meds revd A/P: Viral pneumonitis- ceftiraxone/azithromycin/dexamethasone; O2 support. MAHI- IVF UTI- IV ceftiraxone DM- lantus; hab1c/lipids BPH- flomax HTN Hypothyroidism- synthroid Prop: lovenox; dispo: f/u COVID testing; 7-1 Hba1c/LDL ; cont care; 7-2 treat cough; improving; Humphrey Feliz MD, PhD.
--- NOTE | 2019-12-19 15:24 | NUR ---
PATIENT AMBULATING IN ROOM WHIT PHYSICAL THERAPY. WILL CLOSELY MONITOR.
[2019-12-19] MEDS: INSULIN GLARGINE 100 UNITS/ML VIAL SQ SCH (21:00)
[2019-12-19] MEDS: CEFTRIAXONE SOD 1 GM/NS 50 ML 50 ML IV SCH (21:55)
[2019-12-20] VITALS (7 sets, daily range): BP systolic 101–134; BP diastolic 51–71
[2019-12-20] MEDS: LEVOTHYROXINE SODIUM 50 MCG TAB PO SCH (05:33)
[2019-12-20] MEDS: INSULIN REGULAR, HUMAN 100 UNIT/1 ML 3ML VIAL SQ SCH ×4 (07:30→21:00)
--- NOTE | 2019-12-20 07:31 | NUR ---
PATIENT ASSISTED TO BED SIDE COMMODE AND BACK TO BED. SHORT OF BREATH WITH EXERTION. IN BED RESTING WITH O2 IN PLACE. CALL LIGHT AT REACH. INSTRUCTED TO CALL FOR ASSISTANCE NEEDED.
[2019-12-20] MEDS: DEXAMETHASONE SOD PHOS 10 MG/1 ML VIAL IV SCH (08:30)
[2019-12-20] MEDS: MULTIVITAMINS/MINERALS TAB PO SCH (09:11)
[2019-12-20] MEDS: FENOFIBRATE 145 MG TAB PO SCH (09:11)
[2019-12-20] MEDS: VALSARTAN 160 MG TAB PO SCH (09:11)
[2019-12-20] MEDS: PANTOPRAZOLE SOD 40 MG TABEC PO SCH (09:11)
[2019-12-20] MEDS: ASCORBIC ACID 500 MG TAB PO SCH (09:11)
[2019-12-20] MEDS: PREGABALIN 50 MG CAP PO SCH ×3 (09:11→21:18)
[2019-12-20] MEDS: ZINC SULFATE 220 MG CAP PO SCH (09:11)
[2019-12-20] MEDS: TAMSULOSIN HCL 0.4 MG CAP PO SCH (09:11)
[2019-12-20] MEDS: HEPARIN SOD (PORCINE) 5,000 UNIT/ML VIAL SC SCH (09:22)
--- NOTE | 2019-12-20 11:10 | NUR ---
PATIENT IN BED RESTING WITH HEAD OF BED ELEVATED, NO DISTRESS NOTED. CALL LIGHT AT REACH.
--- NOTE | 2019-12-20 12:04 | NUR ---
IM- progress note O/N see below ROS; unreliable v/s; revd PE tired appearing anicteric ns1s2 Reduced BS soft nt nd no e/t skin dry flat affect awake; labs/meds revd A/P: Viral pneumonitis- ceftiraxone/azithromycin/dexamethasone; O2 support. MAHI- IVF UTI- IV ceftiraxone DM- lantus; hab1c/lipids BPH- flomax HTN Hypothyroidism- synthroid Prop: lovenox; dispo: f/u COVID testing; 7-1 Hba1c/LDL ; cont care; 7-2 treat cough; improving; 7-3 check renal fn; Humphrey Feliz MD, PhD.
[2019-12-20] MEDS: AZITHROMYCIN 500MG/NS 250 ML 250 ML IV SCH (12:29)
[2019-12-20 12:50] LABS: ANION GAP 12.4 mmol/L (8-16); BLOOD UREA NITROGEN 39 mg/dL (7-26); BUN/CREATININE RATIO 39 (6-25); CALCIUM 8.5 mg/dL (8.4-10.2); CARBON DIOXIDE 22 mmol/L (22-29); CHLORIDE 110 mmol/L (98-107); CREATININE, SERUM 0.99 mg/dL (0.72-1.25); EST GLOMERULAR FILTRATION RATE > 60 ML/MIN (60-); GLUCOSE 173 mg/dL (74-118); POTASSIUM 4.4 mmol/L (3.5-5.1); SODIUM 140 mmol/L (136-145)
--- NOTE | 2019-12-20 14:00 | NUR ---
BLOOD SPECIMEN DRAWN AND SENT TO THE LAB.
--- NOTE | 2019-12-20 15:41 | NUR ---
PATIENT NOTED WITH O2 SAT OF 86% AT REST ON 4L N/C. HEAD OF BED ELEVATED; PATIENT PUT ON 6L NON REBREATHER O2 SAT AT 90-91%. MD NOTIFIED. DR WASHBURN AT BED SIDE AT THIS TIME. PATIENT O2 SAT IMPROVING AT 98% WITH NON REBREATHER. PATIENT STATED I AM FEELING BETTER. NON REBREATHER REMOVED BY MD AND N/C REAPPLIED AT 6L. PATIENT O2 SAT AT 95% AT THIS TIME. WILL CLOSELY MONITOR.
--- NOTE | 2019-12-20 15:57 | NUR ---
PATIENT O2 SAT AT 96% AT THIS TIME. WILL CONTINUE TO MONITOR.
--- NOTE | 2019-12-20 16:25 | NUR ---
CHEST X-RAY COMPLETED AT BED SIDE, PATIENT IN BED RESTING QUIETLY. O2 SAT AT 94%.
--- NOTE | 2019-12-20 16:51 | NUR ---
ORDER RECEIVED FOR HOME O2. CALL TO PT TO DISCUSS CHOICE. STATES HE LIVES IN A DOWNSTAIRS APT W HIS . HAS A CANE. RETIRED [employer]; BUILT APTS. CHOICE WAS PROVIDED. CHOSE [facility]. REFERRAL FAXED TO [facility] @ OFF: [phone] / FAX: [phone].
--- NOTE | 2019-12-20 16:55 | Progress Note ---
DATE: SUBJECTIVE: The patient had some desaturations today and his oxygen had to be increased. He was temporarily on a non-rebreather, but is now back on 6 L and saturating in the mid-to-high 90s. He complains of feeling weak. He has mild cough. He does not complain of dyspnea. He notes some mild diarrhea. PHYSICAL EXAMINATION: VITAL SIGNS: The patient is afebrile. The blood pressure is 101/51 and saturation is 96% on 6 L. HEENT: No facial swelling or erythema. CARDIAC: Regular rate and rhythm with normal S1, S2. LUNGS: Auscultation of lungs reveals rhonchorous breath sounds bilaterally. There is no wheezing. ABDOMEN: Soft, nontender. There is no rebound or guarding. EXTREMITIES: No leg edema or calf tenderness. There is no cyanosis or clubbing. SKIN: No rashes. NEUROLOGICAL: Diffuse weakness. LABORATORY DATA: BUN to creatinine ratio is 39 to 0.99. Other electrolytes are within normal limits. White blood cell count is 10.3 and hemoglobin is 12.5. The platelet count is 250. IMPRESSION: 1. Viral pneumonia and coronavirus disease-19 infection. 2. Acute kidney injury. 3. Urinary tract infection. 4. Diabetes. 5. Hypertension. 6. Benign prostatic hypertrophy. PLAN: 1. Repeat x-ray now. 2. Continue physical therapy. 3. Continue antibiotics and Decadron. 4. Continue to monitor creatinine and blood sugars. 5. Possible transfer to longterm. Rafael Blackburn MD [facility]/SHERICE /[id number]
--- NOTE | 2019-12-20 17:14 | Diagnostic Imaging Report ---
EXAMINATION: CHEST SINGLE (PORTABLE) INDICATION: ^viral pneumonia ^[id number] ^[id number] COMPARISON: Chest radiograph 12/19/2019 FINDINGS: AP view TUBES and LINES: None. LUNGS: Lungs are well inflated. Unchanged bilateral multifocal consolidations. PLEURA: No pleural effusion or pneumothorax. HEART AND MEDIASTINUM: The cardiomediastinal silhouette is unremarkable.. BONES AND SOFT TISSUES: No acute osseous lesion. Soft tissues are unremarkable. UPPER ABDOMEN: No free air under the diaphragm. IMPRESSION: Stable bilateral diffuse multifocal viral pneumonia. Signed by: Dr. Jenn Ruffin M.D. on 12/20/2019 5:11 PM
--- NOTE | 2019-12-20 18:20 | NUR ---
DR MARTEL AND DR WASHBURN IN TO SEE PATIENT. PATIENT IN BED WITH HEAD OF BED ELEVATED, NO DISTRESS NOTED. 02 SAT AT 99% ON 5L N/C. WILL CONTINUE TO MONITOR.
--- NOTE | 2019-12-20 20:07 | NUR ---
received report from day nurse. patient is resting comfortably in the bed. bed is in the lowest position and call light is within reach. will continue to monitor patient.
[2019-12-20] MEDS: INSULIN GLARGINE 100 UNITS/ML VIAL SQ SCH (21:00)
[2019-12-20] MEDS: GUAIFENESIN/CODEINE 10 ML CUP PO PRN (21:17)
[2019-12-20] MEDS: CEFTRIAXONE SOD 1 GM/NS 50 ML 50 ML IV SCH (21:18)
[2019-12-20] MEDS: ENOXAPARIN INJ 80 MG/0.8 ML SYR SC SCH (21:18)
[2019-12-21] VITALS (8 sets, daily range): BP systolic 111–120; BP diastolic 55–68
[2019-12-21] MEDS: LEVOTHYROXINE SODIUM 50 MCG TAB PO SCH (06:42)
[2019-12-21] MEDS: INSULIN REGULAR, HUMAN 100 UNIT/1 ML 3ML VIAL SQ SCH ×4 (07:30→21:00)
[2019-12-21] MEDS: MULTIVITAMINS/MINERALS TAB PO SCH (08:22)
[2019-12-21] MEDS: TAMSULOSIN HCL 0.4 MG CAP PO SCH (08:22)
[2019-12-21] MEDS: ASCORBIC ACID 500 MG TAB PO SCH ×2 (08:22→17:58)
[2019-12-21] MEDS: VALSARTAN 160 MG TAB PO SCH (08:22)
[2019-12-21] MEDS: ENOXAPARIN INJ 80 MG/0.8 ML SYR SC SCH ×2 (08:22→21:29)
[2019-12-21] MEDS: DEXAMETHASONE SOD PHOS 10 MG/1 ML VIAL IV SCH (08:22)
[2019-12-21] MEDS: PANTOPRAZOLE SOD 40 MG TABEC PO SCH (08:22)
[2019-12-21] MEDS: FENOFIBRATE 145 MG TAB PO SCH (08:22)
[2019-12-21] MEDS: PREGABALIN 50 MG CAP PO SCH ×3 (08:22→21:29)
[2019-12-21] MEDS: ZINC SULFATE 220 MG CAP PO SCH (08:22)
--- NOTE | 2019-12-21 11:26 | NUR ---
patient c/o SOB O2 sat 89% on rebreather masK, Dr Laura Blackburn here at bed side, new orders recvd, Respiratory therapist here, patient not in any acute distress
[2019-12-21] MEDS: AZITHROMYCIN 500MG/NS 250 ML 250 ML IV SCH (11:44)
--- NOTE | 2019-12-21 11:58 | NUR ---
IM- progress note O/N see below ROS; unreliable v/s; revd PE tired appearing anicteric ns1s2 Reduced BS soft nt nd no e/t skin dry flat affect awake; labs/meds revd A/P: Viral pneumonitis- ceftiraxone/azithromycin/dexamethasone; O2 support. MAHI- IVF UTI- IV ceftiraxone DM- lantus; hab1c/lipids BPH- flomax HTN Hypothyroidism- synthroid Prop: lovenox; dispo: f/u COVID testing; 7-1 Hba1c/LDL ; cont care; 7-2 treat cough; improving; 7-3 check renal fn; 7-4 renal fn improving; SNF pending; Humphrey Feliz MD, PhD.
--- NOTE | 2019-12-21 13:43 | Progress Note ---
DATE: SUBJECTIVE: The patient is now on 100% non-rebreather. He reports more dyspnea, especially when he has bowel movement or has any exertion. He does not have fever. PHYSICAL EXAMINATION: VITAL SIGNS: The blood pressure is 118/68 and pulse is 76. Respiratory rate is 24 and saturation is 96% on a non-rebreather. HEENT: Shows no facial swelling or erythema. CARDIAC: Reveals regular rate and rhythm with normal S1 and S2. LUNGS: Auscultation of lungs reveals crackles at the bases. There is no wheezing. ABDOMEN: Soft and nontender. There is no rebound or guarding. EXTREMITIES: Shows no leg edema or calf tenderness. There is no cyanosis or clubbing. SKIN: Shows no rashes. LABORATORY DATA: The BUN to creatinine ratio is 39 to 0.99. The other electrolytes are within normal limits. The glucose is 173. RADIOGRAPHIC DATA: Chest x-ray shows bilateral infiltrates consistent with viral pneumonia. IMPRESSION: 1. Acute respiratory failure. 2. Viral pneumonia and COVID-19 infection. 3. Acute kidney injury. 4. Diabetes. 5. Hypertension. 6. Benign prostatic hypertrophy. PLAN: 1. Switch the patient to Vapotherm with 40 L and 100% FiO2. 2. Transfer the patient to intensive care unit. 3. Continue current antibiotics. 4. Continue dexamethasone. 5. Continue Lovenox. 6. Continue to monitor and control blood sugars. 7. Case discussed with nursing staff, Respiratory, patient, administration, Infectious Disease, and Internal Medicine. Greater than 35 minutes in direct critical care time. MD DIONIS[facility]/SHERICE /[id number]
--- NOTE | 2019-12-21 14:27 | NUR ---
DEE SPOKE W JANET IN IMCU REGARDING PT DC'ING W HOME O2. STATES THE PT IS NOT STABLE TO DC HOME AT THIS TIME.
[2019-12-21] MEDS: CHOLECALCIFEROL 400 UNIT TAB PO SCH (17:58)
--- NOTE | 2019-12-21 18:23 | NUR ---
patient up in bed, on rebreather mask 15L . not in any distress, tolerated dinner, denies any pain, keep monitoring
[2019-12-21] MEDS: INSULIN GLARGINE 100 UNITS/ML VIAL SQ SCH (21:00)
[2019-12-21] MEDS: CEFTRIAXONE SOD 1 GM/NS 50 ML 50 ML IV SCH (21:29)
[2019-12-21] MEDS: GUAIFENESIN/CODEINE 10 ML CUP PO PRN (21:49)
[2019-12-22] VITALS (8 sets, daily range): BP systolic 109–127; BP diastolic 55–71
[2019-12-22] MEDS: ACETAMINOPHEN 325 MG TAB PO PRN (02:55)
[2019-12-22 05:35] LABS: BASOPHILS % 0.2 % (0.0-1.0); HEMATOCRIT 37.9 % (38.2-49.6); HEMOGLOBIN 12.5 g/dL (14.0-18.0); LYMPHOCYTES # (AUTO) 0.4 (1.0-3.2); LYMPHOCYTES % 6.1 % (18.0-39.1); MEAN CORPUSCULAR VOLUME 84.8 fL (81-99); MONOCYTES # (AUTO) 0.2 (0.2-0.8); MONOCYTES % 2.9 % (4.4-11.3); NEUTROPHILS # (AUTO) 5.9 (2.1-6.9); NEUTROPHILS % 90.2 % (38.7-80.0); PLATELET COUNT 325 x10e3/uL (140-360); RED BLOOD COUNT 4.47 x10e6/uL (4.3-5.7); RED CELL DISTRIBUTION WIDTH 13.9 % (11.7-14.4)
[2019-12-22] MEDS: LEVOTHYROXINE SODIUM 50 MCG TAB PO SCH (06:03)
[2019-12-22 06:15] LABS: ALANINE AMINOTRANSFERASE 52 IU/L (0-55); ALBUMIN 2.1 g/dL (3.5-5.0); ALBUMIN/GLOBULIN RATIO 0.5 (0.8-2.0); ALKALINE PHOSPHATASE 45 IU/L (40-150); ANION GAP 11.3 mmol/L (8-16); BLOOD UREA NITROGEN 25 mg/dL (7-26); BUN/CREATININE RATIO 30 (6-25); CALCIUM 8.6 mg/dL (8.4-10.2); CARBON DIOXIDE 26 mmol/L (22-29); CHLORIDE 110 mmol/L (98-107); CREATININE, SERUM 0.84 mg/dL (0.72-1.25); EST GLOMERULAR FILTRATION RATE > 60 ML/MIN (60-); GLUCOSE 118 mg/dL (74-118); POTASSIUM 4.3 mmol/L (3.5-5.1); SODIUM 143 mmol/L (136-145)
--- NOTE | 2019-12-22 06:47 | NUR ---
patient is resting in the bed. bed is in the lowest position and call light is within reach.
--- NOTE | 2019-12-22 06:54 | Diagnostic Imaging Report ---
EXAMINATION: CHEST SINGLE (PORTABLE) INDICATION: ^resp failure COMPARISON: 12/20/2019 FINDINGS: AP view TUBES and LINES: None. LUNGS: Unchanged patchy airspace disease. PLEURA: No pleural effusion or pneumothorax. HEART AND MEDIASTINUM: The cardiomediastinal silhouette is unremarkable. BONES AND SOFT TISSUES: No acute osseous lesion. Soft tissues are unremarkable. UPPER ABDOMEN: No free air under the diaphragm. IMPRESSION: Unchanged patchy airspace disease consistent with known viral pneumonia. Signed by: Jean-Paul Donahue MD on 12/22/2019 6:51 AM
[2019-12-22] MEDS: INSULIN REGULAR, HUMAN 100 UNIT/1 ML 3ML VIAL SQ SCH ×4 (08:14→21:38)
[2019-12-22] MEDS: PREGABALIN 50 MG CAP PO SCH ×3 (09:00→21:37)
[2019-12-22] MEDS: MULTIVITAMINS/MINERALS TAB PO SCH (09:55)
[2019-12-22] MEDS: DEXAMETHASONE SOD PHOS 10 MG/1 ML VIAL IV SCH (09:55)
[2019-12-22] MEDS: VALSARTAN 160 MG TAB PO SCH (09:55)
[2019-12-22] MEDS: TAMSULOSIN HCL 0.4 MG CAP PO SCH (09:55)
[2019-12-22] MEDS: ENOXAPARIN INJ 80 MG/0.8 ML SYR SC SCH ×2 (09:56→21:37)
[2019-12-22] MEDS: PANTOPRAZOLE SOD 40 MG TABEC PO SCH (09:56)
[2019-12-22] MEDS: CHOLECALCIFEROL 400 UNIT TAB PO SCH ×2 (09:56→17:36)
[2019-12-22] MEDS: ZINC SULFATE 220 MG CAP PO SCH (09:56)
[2019-12-22] MEDS: FENOFIBRATE 145 MG TAB PO SCH (09:56)
[2019-12-22] MEDS: ASCORBIC ACID 500 MG TAB PO SCH ×2 (09:56→17:36)
[2019-12-22 09:59] LABS: LYMPHOCYTES % (MANUAL) 5 % (19-48); MONOCYTES % (MANUAL) 2 % (3.4-9.0); NEUTROPHILS % (MANUAL) 93 % (40-74); PLATELET ESTIMATE ADEQUATE; PLATELET MORPHOLOGY COMMENT NORMAL; RBC MORPHOLOGY COMMENT NORMAL
[2019-12-22] MEDS: AZITHROMYCIN 500MG/NS 250 ML 250 ML IV SCH (12:31)
--- NOTE | 2019-12-22 14:39 | NUR ---
IM- progress note O/N see below ROS; unreliable v/s; revd PE tired appearing anicteric ns1s2 Reduced BS soft nt nd no e/t skin dry flat affect awake; labs/meds revd A/P: Viral pneumonitis- ceftiraxone/azithromycin/dexamethasone; O2 support. MAHI- IVF UTI- IV ceftiraxone DM- lantus; hab1c/lipids BPH- flomax HTN Hypothyroidism- synthroid Prop: lovenox; dispo: f/u COVID testing; 7-1 Hba1c/LDL ; cont care; 7-2 treat cough; improving; 7-3 check renal fn; 7-4 renal fn improving; SNF pending; 7-5 cont supportive care; Humphrey Feliz MD, PhD.
--- NOTE | 2019-12-22 15:42 | Progress Note ---
DATE: Pulmonary Critical Care Progress Note SUBJECTIVE: The patient is still on high-flow oxygen with a non-rebreather. He feels slightly better than yesterday. He is not complaining of cough. He does have severe weakness. PHYSICAL EXAMINATION: VITAL SIGNS: The blood pressure is 115/53, saturation is in the mid 90s on non-rebreather with a high-flow oxygen underneath. HEENT: Shows no facial swelling or erythema. CARDIAC: Reveals regular rate and rhythm with normal S1 and S2. LUNGS: Auscultation of lungs reveals rhonchorous breath sounds bilaterally. There is no wheezing. ABDOMEN: Soft, nontender. There is no rebound or guarding. EXTREMITIES: Shows no leg edema or calf tenderness. There is no cyanosis or clubbing. SKIN: Shows no rashes. NEUROLOGIC: Shows no focal abnormalities. LABORATORY DATA: White blood cell count is 6.5 and hemoglobin is 12.5. The platelet count is 325. BUN to creatinine ratio is 25 to 0.84. Other electrolytes are within normal limits. Albumin is 2.1. RADIOGRAPHIC DATA: Chest x-ray shows bilateral infiltrates. IMPRESSION: 1. Acute respiratory failure. 2. Viral pneumonia, coronavirus disease-19 infection. 3. Acute kidney injury. 4. Diabetes. 5. Hypertension. PLAN: 1. Continue high-flow oxygen with 100% FiO2. 2. Continue dexamethasone. 3. Lovenox. 4. Continue to monitor electrolytes, BUN, creatinine and CBC. 5. Transfer to ICU when bed is available. Rafael Blackburn MD [facility] /[id number]
--- NOTE | 2019-12-22 16:11 | Diagnostic Imaging Report ---
EXAMINATION: CT of the chest with contrast, PE protocol. TECHNIQUE: Spiral CT images of the chest were performed from the lung apices through the level of the adrenal glands after the IV administration of 100 cc of Isovue 370. Thin section reconstructions were obtained with special concentration on the pulmonary arteries. Correlate site and reformatted images were performed. COMPARISON: Portable chest 12/22/2019, 12/20/2019 and 12/19/2019 CLINICAL HISTORY:Shortness of breath, respiratory failure, COVID-19 DISCUSSION: Lungs: No filling defects are identified in the main, right or left pulmonary arteries to their segmental levels, to suggest pulmonary embolism. Diffuse bilateral predominantly peripheral groundglass opacities with visible intralobular lines, with more confluent areas of consolidation and air bronchograms in bilateral lower lobes. No pulmonary nodules or masses. Airways: <The major airways are clear.> Pleura: <There is no evidence of pleural effusion or pneumothorax.> Heart and mediastinum: Thyroid is unremarkable. Heart size is normal. No pericardial effusion. Aorta is nonaneurysmal. Main pulmonary artery is normal in caliber. Lymph nodes: Enlarged right upper endotracheal lymph node which measures 1.2 cm in short axis (series 2, image 38). Enlarged right lower paratracheal lymph node which measures 1.2 cm in short axis (series 2, image 50). Enlarged subcarinal lymph node which measures 1.4 cm in short axis (series 2, image 61). No hilar or axillary adenopathy. Abdomen: The visualized portions of the liver, spleen, pancreas, adrenal glands and right kidney are unremarkable. Multiple stones are noted in the gallbladder lumen. Radiopaque density in the superior pole of the left kidney which is partially visualized . Bones and soft tissues: No aggressive lytic or suspicious focal sclerotic lesion. Multilevel degenerative disks in the thoracic spine soft tissues are grossly unremarkable. IMPRESSION: 1. No CT evidence of pulmonary embolism. 2. Commonly reported imaging features of COVID-19 pneumonia are present. Other processes such as influenza pneumonia and organizing pneumonia, as can be seen with drug toxicity and connected tissue disease, can cause a similar imaging pattern. 3 Mediastinal adenopathy, as described, likely reactive. 4 Cholelithiasis without evidence of cholecystitis. 5. Radiopaque density in the superior pole of the left kidney is partially visualized and may represent a nonobstructing calculus. Signed by: Kenny TillmanD. on 12/22/2019 4:08 PM
--- NOTE | 2019-12-22 18:29 | NUR ---
patient resting in bed, not in any distress on Non breather mask 15L and Vapotherm , tolerated diet, keep monitoring
[2019-12-22] MEDS ORDERED: SODIUM CHLORIDE 0.9% 50ML 50 ML ONE (19:15)
[2019-12-22] MEDS ORDERED: IOPAMIDOL 370 MG/ML 200 ML INFUS..BTL INJ ONE (19:15)
[2019-12-22] MEDS: GABAPENTIN 100 MG CAP PO SCH (21:37)
[2019-12-22] MEDS: INSULIN GLARGINE 100 UNITS/ML VIAL SQ SCH (21:40)
[2019-12-22] MEDS: CEFTRIAXONE SOD 1 GM/NS 50 ML 50 ML IV SCH (22:04)
--- NOTE | 2019-12-22 22:13 | NUR ---
PATIENT WAS TRANSFERRED FROM [address] OBS UNIT, AWAKE ALER ORIENTED, TRANSFERRED WITH BED, DUE TO O2 SATURATION KEEPS DROPPING. PT NOW IN VAPOTHERM 30 L /100% , SAT 02 NOW IS 93 %. DENIED ANY PAIN, NO DISTRESS NOTED, ABLE TO VERBALIZES NEEDS.
[2019-12-23] VITALS (26 sets, daily range): BP systolic 99–130; BP diastolic 48–81
[2019-12-23] MEDS: GUAIFENESIN/CODEINE 10 ML CUP PO PRN (00:05)
--- NOTE | 2019-12-23 06:41 | Diagnostic Imaging Report ---
EXAMINATION: CHEST SINGLE (PORTABLE) INDICATION: ^resp failure COMPARISON: 12/22/2019 FINDINGS: AP view TUBES and LINES: None. LUNGS: Unchanged patchy airspace disease. PLEURA: No pleural effusion or pneumothorax. HEART AND MEDIASTINUM: The cardiomediastinal silhouette is unremarkable. BONES AND SOFT TISSUES: No acute osseous lesion. Soft tissues are unremarkable. UPPER ABDOMEN: No free air under the diaphragm. IMPRESSION: Unchanged pulmonary airspace disease consistent with provided history of viral pneumonia. Signed by: Jean-Paul Donahue MD on 12/23/2019 6:37 AM
[2019-12-23] MEDS: GABAPENTIN 100 MG CAP PO SCH ×3 (06:43→21:40)
[2019-12-23] MEDS: LEVOTHYROXINE SODIUM 50 MCG TAB PO SCH (06:43)
--- NOTE | 2019-12-23 07:01 | NUR ---
REPORTS GIVEN TO UPCOMING SHIFT,CULLEN WATSON.
[2019-12-23] MEDS: INSULIN REGULAR, HUMAN 100 UNIT/1 ML 3ML VIAL SQ SCH ×4 (07:30→21:50)
[2019-12-23 08:12] LABS: BASOPHILS % 0.1 % (0.0-1.0); EOSINOPHILS % 0.3 % (0.0-6.0); LYMPHOCYTES # (AUTO) 0.4 (1.0-3.2); LYMPHOCYTES % 4.6 % (18.0-39.1); MEAN CORPUSCULAR HEMOGLOBIN 27.8 pg (28-32); MEAN CORPUSCULAR HGB CONC 32.5 g/dL (31-35); MEAN CORPUSCULAR VOLUME 85.7 fL (81-99); MONOCYTES # (AUTO) 0.2 (0.2-0.8); MONOCYTES % 2.7 % (4.4-11.3); NEUTROPHILS # (AUTO) 8.1 (2.1-6.9); NEUTROPHILS % 91.6 % (38.7-80.0); PLATELET COUNT 306 x10e3/uL (140-360); RED BLOOD COUNT 4.67 x10e6/uL (4.3-5.7); RED CELL DISTRIBUTION WIDTH 13.8 % (11.7-14.4)
[2019-12-23 08:30] LABS: ALANINE AMINOTRANSFERASE 38 IU/L (0-55); ALBUMIN/GLOBULIN RATIO 0.5 (0.8-2.0); ALKALINE PHOSPHATASE 46 IU/L (40-150); ANION GAP 13.2 mmol/L (8-16); BLOOD UREA NITROGEN 23 mg/dL (7-26); BUN/CREATININE RATIO 29 (6-25); CALCIUM 8.4 mg/dL (8.4-10.2); CARBON DIOXIDE 24 mmol/L (22-29); CHLORIDE 107 mmol/L (98-107); CREATININE, SERUM 0.79 mg/dL (0.72-1.25); EST GLOMERULAR FILTRATION RATE > 60 ML/MIN (60-); GLUCOSE 91 mg/dL (74-118); POTASSIUM 4.2 mmol/L (3.5-5.1); SODIUM 140 mmol/L (136-145)
--- NOTE | 2019-12-23 08:58 | NUR ---
Pt now placed on PT hold d/t being transferred to ICU for higher level of care. Pt will now be placed on PT hold and will need new orders to resume skilled PT. Addendum: 12/23/19 at 0900 by SUAD JEREZ PTA Amended: Links added.
[2019-12-23] MEDS: PREGABALIN 50 MG CAP PO SCH ×3 (08:59→21:40)
[2019-12-23] MEDS: FENOFIBRATE 145 MG TAB PO SCH (08:59)
[2019-12-23] MEDS: VALSARTAN 160 MG TAB PO SCH (08:59)
[2019-12-23] MEDS: TAMSULOSIN HCL 0.4 MG CAP PO SCH (08:59)
[2019-12-23] MEDS: ZINC SULFATE 220 MG CAP PO SCH (08:59)
[2019-12-23] MEDS: CHOLECALCIFEROL 400 UNIT TAB PO SCH ×2 (08:59→16:18)
[2019-12-23] MEDS: ASCORBIC ACID 500 MG TAB PO SCH ×2 (08:59→16:18)
[2019-12-23] MEDS: MULTIVITAMINS/MINERALS TAB PO SCH (08:59)
[2019-12-23] MEDS: DEXAMETHASONE SOD PHOS 10 MG/1 ML VIAL IV SCH (08:59)
[2019-12-23] MEDS: PANTOPRAZOLE SOD 40 MG TABEC PO SCH (08:59)
[2019-12-23] MEDS: ENOXAPARIN INJ 80 MG/0.8 ML SYR SC SCH ×2 (09:00→21:40)
[2019-12-23 09:30] LABS: LYMPHOCYTES % (MANUAL) 6 % (19-48); MONOCYTES % (MANUAL) 1 % (3.4-9.0); NEUTROPHILS % (MANUAL) 93 % (40-74); PLATELET ESTIMATE ADEQUATE; PLATELET MORPHOLOGY COMMENT FEW EDTA CLUMPING; RBC MORPHOLOGY COMMENT NORMAL
[2019-12-23] MEDS: AZITHROMYCIN 500MG/NS 250 ML 250 ML IV SCH (12:48)
--- NOTE | 2019-12-23 13:46 | NUR ---
Nutrition Intervention Note RD Recommendation(s) for Physician: - Recommend adding 1800 ADA to current diet - Recommend Glucerna Shake TID for adequacy - If poor intake continues or pt is intubated, recommend TF of Vital AF with goal rate of 55 ml/hr (1584 kcal and 99 gm protein). Water flushes per MD. Plan of Care: RD following, diet, ONS, and TF rec's monitoring for tolerance and adequacy Nutrition reason for involvement: LOS RD Assessment 12/22: 74 YOM admitted for Covid-19, evaluated today for LOS. No reported poor intake or wt loss upon admit per admit H&P. Pt with poor intake, 0-25% of meals since admit. Pt requiring Vapotherm and non-rebreather for respiratory status. Pt pending transfer to ICU for higher level of care. Chart reviewed. Will continue to monitor. Principal Problems/Diagnoses: Covid-19 URI, hypoxia PMH: DM2, hypothyroidism, HTN, HLD GI: LBM 12/21 x 3 Skin: intact Labs: 12/22: Na 140, K 4.2, BUN 23, Cr 0.79, Gluc 91, POC Gluc 143 Meds: insulin, azithromycin, colace, zofran, lantus, zinc sulfate, vitamin C, insulin, vitamin D3, protonix, MVI with minerals, decadron, tricor Ht: 69 in Wt: 182.31 lb BMI: 26.9 kg/m2 IBW: 160 lb Malnutrition Evaluation (12/23/19) Unable to assess 2/2 current isolation protocol, will continue to evaluate as able. Nutrition Prescription (Diet Order): Cardiac Estimated Nutritional Needs: Calories: 3773-6468 (18-20 kcal/kg/d) Weight used: CBW Protein: 83-124 (1-1.5 g/kg/d) Weight used: CBW Diet Adequacy: Not meeting calorie needs, Not meeting protein needs Tolerance: tolerating po Diet Education Needs Assessment: Diet education not indicated. Nutrition Care Level: Moderate Nutrition Diagnosis: Inadequate energy and protein intake related to current medical conditions as evidenced by not meeting needs. Goal: Patient will meet 75-100% of estimated needs by follow up Progress: N/A Interventions: Tube feeding - Composition, Rate, Route, CHO modified diet, liquid supplement Monitoring/Evaluation: Total energy intake, Total protein intake, Formula/Solution, Weight change Signed: Marcy Naik RD, LD, CNSC
--- NOTE | 2019-12-23 14:52 | Progress Note ---
DATE: SUBJECTIVE: The patient is now on Vapotherm with 40 L and 100%. He has a non-rebreather placed over that. He is still saturating well at 98%. He has minimal tachypnea. PHYSICAL EXAMINATION: VITAL SIGNS: The patient is afebrile. The blood pressure is 113/51, and saturation is 98%. HEENT: Shows no facial swelling or erythema. CARDIAC: Reveals regular rate and rhythm with normal S1, S2. LUNGS: Auscultation of lungs shows clear breath sounds bilaterally. There is no wheezing. ABDOMEN: Soft, nontender. There is no rebound or guarding. EXTREMITIES: Shows no leg edema or calf tenderness. There is no cyanosis or clubbing. SKIN: Shows no rashes. NEUROLOGICAL: Shows no focal abnormalities. LABORATORY DATA: BUN to creatinine ratio is 23 to 0.79. Other electrolytes are within normal limits and the albumin is 2. White blood cell count is 8.8, hemoglobin is 13, and platelet count is 306. RADIOGRAPHIC DATA: Chest x-ray shows bilateral infiltrates consistent with viral pneumonia. IMPRESSION: 1. Acute respiratory failure. 2. Viral pneumonia and COVID-19 infection. 3. Acute kidney injury. 4. Diabetes. 5. Hypertension. PLAN: 1. Continue Vapotherm. 2. Continue dexamethasone. 3. Lovenox. 4. Continue to monitor renal function and urine output. Rafael Blackburn MD [facility]/SHERICE /[id number]
--- NOTE | 2019-12-23 16:22 | NUR ---
IM- progress note O/N see below ROS; unreliable v/s; revd PE tired appearing anicteric ns1s2 Reduced BS soft nt nd no e/t skin dry flat affect awake; labs/meds revd A/P: Viral pneumonitis- ceftiraxone/azithromycin/dexamethasone; O2 support. MAHI- IVF UTI- IV ceftiraxone DM- lantus; hab1c/lipids BPH- flomax HTN Hypothyroidism- synthroid Prop: lovenox; dispo: f/u COVID testing; 7-1 Hba1c/LDL ; cont care; 7-2 treat cough; improving; 7-3 check renal fn; 7-4 renal fn improving; SNF pending; 7-5 cont supportive care; 7-6 moved to ICU Humphrey Feliz MD, PhD.
[2019-12-23] MEDS: CEFTRIAXONE SOD 1 GM/NS 50 ML 50 ML IV SCH (21:40)
[2019-12-23] MEDS: INSULIN GLARGINE 100 UNITS/ML VIAL SQ SCH (21:52)
[2019-12-24] VITALS (23 sets, daily range): BP systolic 102–139; BP diastolic 48–112
[2019-12-24] MEDS: GABAPENTIN 100 MG CAP PO SCH ×3 (05:04→21:54)
[2019-12-24] MEDS: LEVOTHYROXINE SODIUM 50 MCG TAB PO SCH (05:04)
[2019-12-24 05:37] LABS: EOSINOPHILS % 0.2 % (0.0-6.0); HEMATOCRIT 37.7 % (38.2-49.6); HEMOGLOBIN 12.7 g/dL (14.0-18.0); LYMPHOCYTES # (AUTO) 0.4 (1.0-3.2); LYMPHOCYTES % 4.1 % (18.0-39.1); MEAN CORPUSCULAR HEMOGLOBIN 28.3 pg (28-32); MEAN CORPUSCULAR HGB CONC 33.7 g/dL (31-35); MONOCYTES # (AUTO) 0.3 (0.2-0.8); MONOCYTES % 3.3 % (4.4-11.3); NEUTROPHILS # (AUTO) 8.1 (2.1-6.9); NEUTROPHILS % 91.9 % (38.7-80.0); PLATELET COUNT 351 x10e3/uL (140-360); RED BLOOD COUNT 4.49 x10e6/uL (4.3-5.7); RED CELL DISTRIBUTION WIDTH 13.6 % (11.7-14.4)
[2019-12-24 05:56] LABS: ALANINE AMINOTRANSFERASE 36 IU/L (0-55); ALBUMIN/GLOBULIN RATIO 0.5 (0.8-2.0); ALKALINE PHOSPHATASE 44 IU/L (40-150); ANION GAP 11.3 mmol/L (8-16); BLOOD UREA NITROGEN 27 mg/dL (7-26); BUN/CREATININE RATIO 33 (6-25); CALCIUM 8.5 mg/dL (8.4-10.2); CARBON DIOXIDE 28 mmol/L (22-29); CHLORIDE 105 mmol/L (98-107); CREATININE, SERUM 0.81 mg/dL (0.72-1.25); EST GLOMERULAR FILTRATION RATE > 60 ML/MIN (60-); GLUCOSE 89 mg/dL (74-118); POTASSIUM 4.3 mmol/L (3.5-5.1); SODIUM 140 mmol/L (136-145)
[2019-12-24] MEDS: INSULIN REGULAR, HUMAN 100 UNIT/1 ML 3ML VIAL SQ SCH ×4 (07:16→21:00)
[2019-12-24] MEDS: DEXAMETHASONE SOD PHOS 10 MG/1 ML VIAL IV SCH (08:05)
[2019-12-24] MEDS: VALSARTAN 160 MG TAB PO SCH (08:31)
[2019-12-24] MEDS: TAMSULOSIN HCL 0.4 MG CAP PO SCH (08:31)
[2019-12-24] MEDS: PREGABALIN 50 MG CAP PO SCH ×3 (08:32→20:58)
[2019-12-24] MEDS: ENOXAPARIN INJ 80 MG/0.8 ML SYR SC SCH ×2 (08:32→20:58)
[2019-12-24] MEDS: CHOLECALCIFEROL 400 UNIT TAB PO SCH ×2 (08:32→17:16)
[2019-12-24] MEDS: FENOFIBRATE 145 MG TAB PO SCH (08:32)
[2019-12-24] MEDS: ASCORBIC ACID 500 MG TAB PO SCH ×2 (08:32→17:16)
[2019-12-24] MEDS: MULTIVITAMINS/MINERALS TAB PO SCH (08:32)
[2019-12-24] MEDS: PANTOPRAZOLE SOD 40 MG TABEC PO SCH (08:32)
[2019-12-24] MEDS: ZINC SULFATE 220 MG CAP PO SCH (08:32)
--- NOTE | 2019-12-24 08:35 | Diagnostic Imaging Report ---
EXAMINATION: CHEST SINGLE (PORTABLE) INDICATION: Pneumonia COMPARISON: Chest radiograph 12/23/2019 FINDINGS: LINES/TUBES:None LUNGS:Unchanged multifocal bilateral predominantly peripheral hazy and consolidative opacities. PLEURA:No pleural effusion or pneumothorax. MEDIASTINUM:The cardiomediastinal silhouette appears unchanged in size and shape. BONES/SOFT TISSUES:No acute osseous injury. ABDOMEN:No free air under the diaphragm. IMPRESSION: No significant interval change. Signed by: Garrick Tellez MD on 12/24/2019 8:32 AM
[2019-12-24] MEDS: AZITHROMYCIN 500MG/NS 250 ML 250 ML IV SCH (12:59)
--- NOTE | 2019-12-24 13:56 | NUR ---
IM- progress note O/N see below ROS; unreliable v/s; revd PE tired appearing anicteric ns1s2 Reduced BS soft nt nd no e/t skin dry flat affect awake; labs/meds revd A/P: Viral pneumonitis- ceftiraxone/azithromycin/dexamethasone; O2 support. MAHI- IVF UTI- IV ceftiraxone DM- lantus; hab1c/lipids BPH- flomax HTN Hypothyroidism- synthroid Prop: lovenox; dispo: f/u COVID testing; 7-1 Hba1c/LDL ; cont care; 7-2 treat cough; improving; 7-3 check renal fn; 7-4 renal fn improving; SNF pending; 7-5 cont supportive care; 7-6 moved to ICU 7-7 cont care; Humphrey Feliz MD, PhD.
--- NOTE | 2019-12-24 15:07 | Progress Note ---
DATE: Pulmonary Critical Care Progress Note SUBJECTIVE: The patient still complains of weakness and fatigue. He is having less cough. He has no chest pain. PHYSICAL EXAMINATION: VITAL SIGNS: The patient is afebrile. Blood pressure is 108/55, saturation is now 98% on Vapotherm at 40 L with 95% FiO2. HEENT: Shows no facial swelling or erythema. CARDIAC: Reveals regular rate and rhythm with normal S1 and S2. There are no murmurs or rubs heard. LUNGS: Auscultation of lungs reveals crackles at the bases. There is no wheezing. ABDOMEN: Soft and nontender. There is no rebound or guarding. EXTREMITIES: Shows no leg edema or calf tenderness. There is no cyanosis or clubbing. SKIN: Shows no rashes. NEUROLOGICAL: Shows no focal abnormalities. LABORATORY DATA: White blood cell count is 8.8 and hemoglobin is 12.7. The platelet count is 351. The BUN to creatinine ratio is 27 to 0.81. Other electrolytes are within normal limits. Albumin is 2.0. IMPRESSION: 1. Acute respiratory failure. 2. Viral pneumonia and COVID-19 infection. 3. Acute kidney injury. 4. Diabetes. 5. Hypertension. PLAN: 1. Continue Vapotherm. 2. Continue dexamethasone. 3. Lovenox. 4. Repeat chest x-ray and labs in a.m. Rafael Blackburn MD [facility]/SHERICE /[id number]
[2019-12-24] MEDS: CEFTRIAXONE SOD 1 GM/NS 50 ML 50 ML IV SCH (20:58)
[2019-12-24] MEDS: INSULIN GLARGINE 100 UNITS/ML VIAL SQ SCH (21:00)
[2019-12-24] MEDS: GUAIFENESIN/CODEINE 10 ML CUP PO PRN (23:00)
[2019-12-25] VITALS (23 sets, daily range): BP systolic 94–154; BP diastolic 40–135
[2019-12-25 05:23] LABS: BASOPHILS % 0.1 % (0.0-1.0); EOSINOPHILS # (AUTO) 0.1 (0.0-0.4); EOSINOPHILS % 0.5 % (0.0-6.0); HEMATOCRIT 40.9 % (38.2-49.6); HEMOGLOBIN 13.7 g/dL (14.0-18.0); LYMPHOCYTES # (AUTO) 0.5 (1.0-3.2); LYMPHOCYTES % 3.8 % (18.0-39.1); MEAN CORPUSCULAR HEMOGLOBIN 28.2 pg (28-32); MEAN CORPUSCULAR HGB CONC 33.5 g/dL (31-35); MEAN CORPUSCULAR VOLUME 84.3 fL (81-99); MONOCYTES # (AUTO) 0.3 (0.2-0.8); MONOCYTES % 2.5 % (4.4-11.3); NEUTROPHILS # (AUTO) 12.2 (2.1-6.9); NEUTROPHILS % 92.6 % (38.7-80.0); PLATELET COUNT 307 x10e3/uL (140-360); RED BLOOD COUNT 4.85 x10e6/uL (4.3-5.7); RED CELL DISTRIBUTION WIDTH 13.5 % (11.7-14.4)
[2019-12-25 05:48] LABS: ALANINE AMINOTRANSFERASE 41 IU/L (0-55); ALBUMIN 1.9 g/dL (3.5-5.0); ALBUMIN/GLOBULIN RATIO 0.4 (0.8-2.0); ALKALINE PHOSPHATASE 49 IU/L (40-150); ANION GAP 12.4 mmol/L (8-16); BLOOD UREA NITROGEN 27 mg/dL (7-26); BUN/CREATININE RATIO 35 (6-25); CALCIUM 8.7 mg/dL (8.4-10.2); CARBON DIOXIDE 25 mmol/L (22-29); CHLORIDE 105 mmol/L (98-107); CREATININE, SERUM 0.78 mg/dL (0.72-1.25); EST GLOMERULAR FILTRATION RATE > 60 ML/MIN (60-); GLUCOSE 63 mg/dL (74-118); POTASSIUM 4.4 mmol/L (3.5-5.1); SODIUM 138 mmol/L (136-145)
[2019-12-25] MEDS: LEVOTHYROXINE SODIUM 50 MCG TAB PO SCH (06:00)
[2019-12-25] MEDS: GABAPENTIN 100 MG CAP PO SCH ×3 (06:00→22:02)
[2019-12-25] MEDS: INSULIN REGULAR, HUMAN 100 UNIT/1 ML 3ML VIAL SQ SCH ×4 (07:30→20:35)
[2019-12-25] MEDS: MULTIVITAMINS/MINERALS TAB PO SCH (08:22)
[2019-12-25] MEDS: ENOXAPARIN INJ 80 MG/0.8 ML SYR SC SCH ×2 (08:22→20:35)
[2019-12-25] MEDS: PREGABALIN 50 MG CAP PO SCH ×3 (08:22→20:35)
[2019-12-25] MEDS: ZINC SULFATE 220 MG CAP PO SCH (08:22)
[2019-12-25] MEDS: FENOFIBRATE 145 MG TAB PO SCH (08:22)
[2019-12-25] MEDS: PANTOPRAZOLE SOD 40 MG TABEC PO SCH (08:22)
[2019-12-25] MEDS: TAMSULOSIN HCL 0.4 MG CAP PO SCH (08:22)
[2019-12-25] MEDS: CHOLECALCIFEROL 400 UNIT TAB PO SCH ×2 (08:22→17:37)
[2019-12-25] MEDS: VALSARTAN 80 MG TAB PO SCH (08:24)
--- NOTE | 2019-12-25 08:54 | Diagnostic Imaging Report ---
Examination: Single AP view of the chest. COMPARISON: 12/24/2019 INDICATION: Respiratory failure DISCUSSION: As before, there are multiple peripheral predominant hazy and consolidative opacities, similar to prior. No pleural effusion or pneumothorax. Cardiomediastinal contour and pulmonary vasculature are within normal limits when accounting for AP technique. No acute osseous abnormalities. IMPRESSION: Similar appearance of bilateral hazy and consolidative pulmonary opacities relative to 12/24/2019. Signed by: Dr. Robert Zamora M.D. on 12/25/2019 8:50 AM
[2019-12-25] MEDS: ASCORBIC ACID 500 MG TAB PO SCH ×2 (09:00→17:37)
[2019-12-25 09:05] LABS: LYMPHOCYTES % (MANUAL) 1 % (19-48); MONOCYTES % (MANUAL) 1 % (3.4-9.0); NEUTROPHILS % (MANUAL) 98 % (40-74)
[2019-12-25 09:07] LABS: PLATELET ESTIMATE ADEQUATE; PLATELET MORPHOLOGY COMMENT RARE EDTA CLUMPING; RBC MORPHOLOGY COMMENT NORMAL
--- NOTE | 2019-12-25 10:24 | Progress Note ---
DATE: SUBJECTIVE: The patient is less short of breath today. He has less cough. He complains of some dyspepsia and epigastric discomfort. He is still on Vapotherm, but the FiO2 has been decreased to 90%. He is on 40 L. PHYSICAL EXAMINATION: VITAL SIGNS: The blood pressure is 120/40 and heart rate is 84. Saturation is 99% on the Vapotherm. HEENT: No facial swelling or erythema. LYMPHATIC: No submandibular, cervical, or supraclavicular adenopathy. CARDIAC: Regular rate and rhythm with normal S1, S2. LUNGS: Auscultation of lungs reveals rhonchorous breath sounds bilaterally. There is no wheezing. ABDOMEN: Soft, nontender. There is no rebound or guarding. EXTREMITIES: No leg edema or calf tenderness. There is no cyanosis clubbing. SKIN: No rashes. NEUROLOGICAL: No focal abnormalities. LABORATORY DATA: White blood cell count is 13.2 and hemoglobin is 13.7. The platelet count is 307. The BUN to creatinine ratio is 27 to 0.78. Other electrolytes are within normal limits and the albumin is 1.8. RADIOGRAPHIC DATA: Chest x-ray shows bilateral infiltrates. IMPRESSION: 1. Acute respiratory failure. 2. Viral pneumonia and coronavirus disease-19 infection. 3. Acute kidney injury. 4. Diabetes. 5. Hypertension. PLAN: 1. Wean Vapotherm and decrease FiO2 as tolerated. 2. Incentive spirometry and chest physiotherapy. 3. Lovenox. 4. Complete dexamethasone. 5. Physical therapy. 6. Continue to encourage nutrition. MD DIONISIO Denise/SHERICE /[id number]
[2019-12-25] MEDS ORDERED: BELLADONNA ALK/PHENOBARBITAL 5 ML UDC PO ONE (10:55)
--- NOTE | 2019-12-25 12:09 | NUR ---
IM- progress note O/N see below ROS; unreliable v/s; revd PE tired appearing anicteric ns1s2 Reduced BS soft nt nd no e/t skin dry flat affect awake; labs/meds revd A/P: Viral pneumonitis- ceftiraxone/azithromycin/dexamethasone; O2 support. MAHI- IVF UTI- IV ceftiraxone DM- lantus; hab1c/lipids BPH- flomax HTN Hypothyroidism- synthroid Prop: lovenox; dispo: f/u COVID testing; 7-1 Hba1c/LDL ; cont care; 7-2 treat cough; improving; 7-3 check renal fn; 7-4 renal fn improving; SNF pending; 7-5 cont supportive care; 7-6 moved to ICU 7-7 cont care; 7-8 Vapotherm; supportive care; XR no change. Humphrey Feliz MD, PhD.
[2019-12-25] MEDS: AZITHROMYCIN 500MG/NS 250 ML 250 ML IV SCH (12:17)
--- NOTE | 2019-12-25 15:21 | Progress Note ---
DATE: SUBJECTIVE: Mr. Davis remains in intensive care unit. He has some epigastric discomfort, still on Vapotherm. His FiO2 is 90%, 40 L. OBJECTIVE: HEENT: He is not icteric. NECK: Supple. CHEST: Crackles. HEART: S1, S2. No murmur. ABDOMEN: Soft. IMPRESSION AND PLAN: Respiratory failure, viral pneumonia, coronavirus disease-19, acute kidney injury, diabetes mellitus, and hypertension. Continue Vapotherm. Kidney function seems to be within normal limit. Finish 3 days of azithromycin. Continue Lovenox. Continue Rocephin for 5 days, Decadron for 10 days. MD CARLENE Campos/[facility] /[id number]
[2019-12-25] MEDS: ACETAMINOPHEN 325 MG TAB PO PRN (17:37)
--- NOTE | 2019-12-25 18:47 | NUR ---
pt rcvd @0700 alert and orientated *4, pt denies c/o pain. pt has YANNA with exertion. pt has incentive spirometer at bedside, encouraged to use 10 times/hr while awake. pt NSR on telemetry. pt febrile temp 100.9. lungs diminished bilaterally to auscultion. pt has dry cough. pls see emr for detailed assessment.
[2019-12-25] MEDS: CEFTRIAXONE SOD 1 GM/NS 50 ML 50 ML IV SCH (20:34)
[2019-12-25] MEDS: INSULIN GLARGINE 100 UNITS/ML VIAL SQ SCH (20:37)
[2019-12-26] VITALS (22 sets, daily range): BP systolic 84–108; BP diastolic 42–72
[2019-12-26] MEDS: GUAIFENESIN/CODEINE 10 ML CUP PO PRN (01:35)
[2019-12-26] MEDS: LEVOTHYROXINE SODIUM 50 MCG TAB PO SCH (05:25)
[2019-12-26] MEDS: GABAPENTIN 100 MG CAP PO SCH ×3 (05:25→21:45)
[2019-12-26] MEDS: ACETAMINOPHEN 325 MG TAB PO PRN ×2 (05:26→21:09)
[2019-12-26 05:55] LABS: BASOPHILS % 0.1 % (0.0-1.0); EOSINOPHILS # (AUTO) 0.1 (0.0-0.4); EOSINOPHILS % 0.6 % (0.0-6.0); HEMATOCRIT 36.9 % (38.2-49.6); HEMOGLOBIN 12.1 g/dL (14.0-18.0); LYMPHOCYTES # (AUTO) 0.4 (1.0-3.2); LYMPHOCYTES % 2.8 % (18.0-39.1); MEAN CORPUSCULAR HEMOGLOBIN 27.9 pg (28-32); MEAN CORPUSCULAR HGB CONC 32.8 g/dL (31-35); MEAN CORPUSCULAR VOLUME 85.2 fL (81-99); MONOCYTES # (AUTO) 0.4 (0.2-0.8); MONOCYTES % 2.5 % (4.4-11.3); NEUTROPHILS # (AUTO) 14.1 (2.1-6.9); NEUTROPHILS % 93.3 % (38.7-80.0); PLATELET COUNT 313 x10e3/uL (140-360); RED BLOOD COUNT 4.33 x10e6/uL (4.3-5.7); RED CELL DISTRIBUTION WIDTH 13.7 % (11.7-14.4)
[2019-12-26 06:04] LABS: ALANINE AMINOTRANSFERASE 49 IU/L (0-55); ALBUMIN 1.6 g/dL (3.5-5.0); ALBUMIN/GLOBULIN RATIO 0.4 (0.8-2.0); ALKALINE PHOSPHATASE 69 IU/L (40-150); ANION GAP 11.1 mmol/L (8-16); BLOOD UREA NITROGEN 24 mg/dL (7-26); BUN/CREATININE RATIO 30 (6-25); CARBON DIOXIDE 27 mmol/L (22-29); CHLORIDE 101 mmol/L (98-107); EST GLOMERULAR FILTRATION RATE > 60 ML/MIN (60-); GLUCOSE 66 mg/dL (74-118); POTASSIUM 4.1 mmol/L (3.5-5.1); SODIUM 135 mmol/L (136-145)
--- NOTE | 2019-12-26 07:20 | NUR ---
patient blood sugar this morning is 57, patient able to drink 2 cups of juice. made day shift nurse aware. will continue to monitor.
[2019-12-26] MEDS: INSULIN REGULAR, HUMAN 100 UNIT/1 ML 3ML VIAL SQ SCH ×4 (07:30→20:42)
[2019-12-26] MEDS: PANTOPRAZOLE SOD 40 MG TABEC PO SCH (08:14)
[2019-12-26] MEDS: ENOXAPARIN INJ 80 MG/0.8 ML SYR SC SCH ×2 (08:14→20:58)
[2019-12-26] MEDS: ONDANSETRON HCL INJ 2MG/ML 2ML 2 MG/ML VIAL IV PRN ×2 (08:14→16:28)
[2019-12-26] MEDS: DOCUSATE SODIUM 100 MG CAP PO PRN ×2 (08:14→16:28)
--- NOTE | 2019-12-26 08:29 | Diagnostic Imaging Report ---
X-ray chest AP portable Comparison: 12/25/2019 History: Respiratory failure. Covid 19. Findings: Central airways unremarkable. Heart size normal. Mediastinal silhouettes obscured. No definite pleural effusion. No pneumothorax. Lung opacities, most pronounced in the left lung peripherally and right lung centrally along with other opacities scattered throughout both lungs have increased compared with the previous exam. No acute changes in the visualized skeletal structures are upper abdomen. Impression: Worsening of bilateral airspace and interstitial opacities. Signed by: Lebron Beal MD on 12/26/2019 8:26 AM
[2019-12-26] MEDS: VALSARTAN 80 MG TAB PO SCH (09:00)
[2019-12-26] MEDS: TAMSULOSIN HCL 0.4 MG CAP PO SCH (09:45)
[2019-12-26] MEDS: ASCORBIC ACID 500 MG TAB PO SCH ×2 (09:45→16:28)
[2019-12-26] MEDS: ZINC SULFATE 220 MG CAP PO SCH (09:45)
[2019-12-26] MEDS: FENOFIBRATE 145 MG TAB PO SCH (09:45)
[2019-12-26] MEDS: CHOLECALCIFEROL 400 UNIT TAB PO SCH ×2 (09:45→16:28)
[2019-12-26] MEDS: MULTIVITAMINS/MINERALS TAB PO SCH (09:45)
--- NOTE | 2019-12-26 09:48 | NUR ---
HELD AM BP MED. BP84/71 HR77. NOTIFIED
[2019-12-26 10:44] LABS: BAND NEUTROPHILS % (MANUAL) 4 %; LYMPHOCYTES % (MANUAL) 4 % (19-48); MONOCYTES % (MANUAL) 4 % (3.4-9.0); NEUTROPHILS % (MANUAL) 88 % (40-74)
--- NOTE | 2019-12-26 10:51 | NUR ---
IM- progress note O/N see below ROS; unreliable v/s; revd PE tired appearing anicteric ns1s2 Reduced BS soft nt nd no e/t skin dry flat affect awake; labs/meds revd A/P: Viral pneumonitis- ceftiraxone/azithromycin/dexamethasone; O2 support. MAHI- IVF UTI- IV ceftiraxone DM- lantus; hab1c/lipids BPH- flomax HTN Hypothyroidism- synthroid Prop: lovenox; dispo: f/u COVID testing; 7-1 Hba1c/LDL ; cont care; 7-2 treat cough; improving; 7-3 check renal fn; 7-4 renal fn improving; SNF pending; 7-5 cont supportive care; 7-6 moved to ICU 7-7 cont care; 7-8 Vapotherm; supportive care; XR no change. 7-9 FEver overnight; Severe sepsis POA; worsening leukocytosis; Hypoglycemia- reduce insulin by 15 units; Humphrey Feliz MD, PhD.
[2019-12-26] MEDS: AZITHROMYCIN 500MG/NS 250 ML 250 ML IV SCH (16:27)
--- NOTE | 2019-12-26 16:31 | Progress Note ---
DATE: SUBJECTIVE: Mr. Davis remains in intensive care unit. He is comfortable. OBJECTIVE: VITAL SIGNS: Stable, afebrile. HEENT: He is not icteric. NECK: Supple. CHEST: Crackles. HEART: S1 and S2. No S3, S4, or murmur. ABDOMEN: Soft. IMPRESSION: COVID-19. He remains on high oxygen. Continue with Lovenox. We will discontinue antibiotic. Observe the patient clinically. We will follow. MD CARLENE Campos/SHERICE /[id number]
[2019-12-26] MEDS ORDERED: CITRATE OF MAGNESIA 300ML BOTTLE PO SCH (18:45)
--- NOTE | 2019-12-26 20:02 | Progress Note ---
DATE: SUBJECTIVE: The patient is complaining of some abdominal discomfort and acid reflux. He states he takes Pepcid at home. He also reports some constipation. He is not complaining of dyspnea. He has no cough. He is saturating well. He is now on Vapotherm at 35 L with 70% FiO2. PHYSICAL EXAMINATION: VITAL SIGNS: The patient is afebrile. The blood pressure is 104/47, saturation is 97%. HEENT: Shows no facial swelling or erythema. CARDIAC: Reveals regular rate and rhythm with normal S1 and S2. LUNGS: Auscultation of lungs reveals clear breath sounds bilaterally. There is no wheezing. ABDOMEN: Soft and nontender. There is no rebound or guarding. EXTREMITIES: Shows no leg edema or calf tenderness. There is no cyanosis or clubbing. SKIN: Shows no rashes. NEUROLOGICAL: Shows no focal abnormalities. LABORATORY DATA: White blood cell count is 15.1, hemoglobin is 12.1. The platelet count is 313. BUN to creatinine ratio is normal. Other electrolytes are within normal limits. Albumin is 1.6. RADIOGRAPHIC DATA: Chest x-ray shows persistent bilateral infiltrates. IMPRESSION: 1. Acute respiratory failure. 2. Viral pneumonia and COVID-19 infection. 3. Acute kidney injury. 4. Diabetes. PLAN: 1. Continue to wean Vapotherm. 2. Milk of magnesia and Pepcid. 3. Continue Lovenox. 4. Complete dexamethasone. 5. Physical therapy. 6. Abdominal x-ray and ultrasound of abdomen. Rafael Blackburn MD [facility] /[id number]
--- NOTE | 2019-12-26 20:04 | NUR ---
pt does not know when last bm was and c/o increased acid in stomach. am and prn medications improved some per patient. notified dr. hughes of patient complaints. new orders received.
[2019-12-26] MEDS: INSULIN GLARGINE 100 UNITS/ML VIAL SQ SCH (20:42)
[2019-12-26] MEDS: CEFTRIAXONE SOD 1 GM/NS 50 ML 50 ML IV SCH (20:58)
--- NOTE | 2019-12-26 22:51 | Diagnostic Imaging Report ---
EXAM: ABDOMEN 2 VIEW DATE: 12/26/2019 6:40 PM INDICATION: Abdominal pain , hypoxia COMPARISON: Abdominal CT 11/08/2018 FINDINGS: Nonobstructive bowel gas pattern. Degenerative changes in the spine hips and pelvis nonobstructive bowel gas pattern. No masses. Calcifications in the expected location of the gallbladder. No pneumoperitoneum. No obvious mass effect. Airspace disease in the lower lungs . IMPRESSION: Nonobstructive bowel gas pattern. Calcified gallstones. Airspace disease in the lower lungs consistent with pneumonia. Signed by: Toney Lepe DO on 12/26/2019 10:48 PM
[2019-12-26] MEDS ORDERED: CITRATE OF MAGNESIA 300ML BOTTLE ONE (23:07)
[2019-12-27] VITALS (23 sets, daily range): BP systolic 90–127; BP diastolic 41–60
[2019-12-27] MEDS: GUAIFENESIN/CODEINE 10 ML CUP PO PRN (02:26)
[2019-12-27 05:21] LABS: BASOPHILS % 0.1 % (0.0-1.0); EOSINOPHILS # (AUTO) 0.1 (0.0-0.4); EOSINOPHILS % 0.3 % (0.0-6.0); HEMATOCRIT 36.5 % (38.2-49.6); LYMPHOCYTES # (AUTO) 0.3 (1.0-3.2); LYMPHOCYTES % 2.2 % (18.0-39.1); MEAN CORPUSCULAR HEMOGLOBIN 28.2 pg (28-32); MEAN CORPUSCULAR HGB CONC 32.9 g/dL (31-35); MEAN CORPUSCULAR VOLUME 85.7 fL (81-99); MONOCYTES # (AUTO) 0.3 (0.2-0.8); MONOCYTES % 2.3 % (4.4-11.3); NEUTROPHILS # (AUTO) 13.8 (2.1-6.9); NEUTROPHILS % 94.6 % (38.7-80.0); PLATELET COUNT 249 x10e3/uL (140-360); RED BLOOD COUNT 4.26 x10e6/uL (4.3-5.7); RED CELL DISTRIBUTION WIDTH 13.6 % (11.7-14.4)
[2019-12-27 05:29] LABS: ANION GAP 10.6 mmol/L (8-16); BLOOD UREA NITROGEN 27 mg/dL (7-26); CARBON DIOXIDE 28 mmol/L (22-29); CHLORIDE 101 mmol/L (98-107); CREATININE, SERUM 0.96 mg/dL (0.72-1.25); POTASSIUM 4.6 mmol/L (3.5-5.1); SODIUM 135 mmol/L (136-145)
[2019-12-27 05:30] LABS: ALANINE AMINOTRANSFERASE 53 IU/L (0-55); ALBUMIN 1.5 g/dL (3.5-5.0); ALBUMIN/GLOBULIN RATIO 0.4 (0.8-2.0); ALKALINE PHOSPHATASE 81 IU/L (40-150); BUN/CREATININE RATIO 28 (6-25); EST GLOMERULAR FILTRATION RATE > 60 ML/MIN (60-); GLUCOSE 118 mg/dL (74-118)
[2019-12-27] MEDS: GABAPENTIN 100 MG CAP PO SCH ×3 (06:33→20:59)
[2019-12-27] MEDS: LEVOTHYROXINE SODIUM 50 MCG TAB PO SCH (06:33)
[2019-12-27] MEDS: INSULIN REGULAR, HUMAN 100 UNIT/1 ML 3ML VIAL SQ SCH ×4 (07:13→20:59)
[2019-12-27] MEDS: ZINC SULFATE 220 MG CAP PO SCH (09:00)
[2019-12-27] MEDS: FENOFIBRATE 145 MG TAB PO SCH (10:04)
[2019-12-27] MEDS: MULTIVITAMINS/MINERALS TAB PO SCH (10:04)
[2019-12-27] MEDS: CHOLECALCIFEROL 400 UNIT TAB PO SCH ×2 (10:04→16:41)
[2019-12-27] MEDS: TAMSULOSIN HCL 0.4 MG CAP PO SCH (10:04)
[2019-12-27] MEDS: VALSARTAN 80 MG TAB PO SCH (10:04)
[2019-12-27] MEDS: ENOXAPARIN INJ 80 MG/0.8 ML SYR SC SCH (10:04)
[2019-12-27] MEDS: FAMOTIDINE 20 MG/2 ML VIAL IV SCH ×2 (10:04→16:41)
[2019-12-27] MEDS: ASCORBIC ACID 500 MG TAB PO SCH ×2 (10:04→16:41)
[2019-12-27] MEDS: PANTOPRAZOLE SOD 40 MG TABEC PO SCH (10:04)
--- NOTE | 2019-12-27 12:07 | Diagnostic Imaging Report ---
Abdominal Ultrasound Clinical Diagnosis: Abdominal pain Comparison: None Technique: Multiple transaxial and longitudinal images were obtained through the abdomen with real time ultrasonography. A low-frequency curvilinear transducer was utilized. Multiple images were submitted for interpretation. Report: Liver: The liver measures 15.6 cm in the right midaxillary line. There are no focal masses or abnormal cysts. The echogenicity is diffusely. Spleen: The spleen measures 11.4 cm in the left mid axillary line. There are no focal masses or cysts. Gallbladder: The transverse diameter is within normal limits cm. The wall measures 3 mm. There are multiple shadowing stones visualized. There is no sludge visualized. Sonographic Rosenthal's sign is negative. Biliary tree: There is no evidence of intra or extra hepatic biliary ductal dilatation. The common bile duct measures 3 mm. Portal vein: The portal vein measures 9 mm. There is hepatopedal flow. Pancreas: The pancreatic tissue is not well seen secondary to overlying bowel gas. Ascites: Absent Pleural Effusion: Small Right kidney: The right kidney measures 10.8 x 5.2 x 5.5 cm. There is no evidence of hydronephrosis, mass, cyst. Left kidney: The left kidney measures 10.4 x 6.2 x 4.3 cm. There is no evidence of hydronephrosis, mass, cyst. IVC/Aorta: Partially seen segments demonstrate no abnormality. Impression: Borderline liver size with diffuse increase in echogenicity suggestive of diffuse fatty infiltration. Clinical and laboratory correlation is requested. Multiple gallstones. Possible small right pleural effusion. Signed by: Lebron Beal MD on 12/27/2019 12:03 PM
[2019-12-27] MEDS: AZITHROMYCIN 500MG/NS 250 ML 250 ML IV SCH (12:08)
--- NOTE | 2019-12-27 12:39 | NUR ---
IM- progress note O/N see below ROS; unreliable v/s; revd PE tired appearing anicteric ns1s2 Reduced BS soft nt nd no e/t skin dry flat affect awake; labs/meds revd A/P: Viral pneumonitis- ceftiraxone/azithromycin/dexamethasone; O2 support. MAHI- IVF UTI- IV ceftiraxone DM- lantus; hab1c/lipids BPH- flomax HTN Hypothyroidism- synthroid Prop: lovenox; dispo: f/u COVID testing; 7-1 Hba1c/LDL ; cont care; 7-2 treat cough; improving; 7-3 check renal fn; 7-4 renal fn improving; SNF pending; 7-5 cont supportive care; 7-6 moved to ICU 7-7 cont care; 7-8 Vapotherm; supportive care; XR no change. 7-9 FEver overnight; Severe sepsis POA; worsening leukocytosis; Hypoglycemia- reduce insulin by 15 units; 7-10 gallstones; fatty liver. Humphrey Feliz MD, PhD.
--- NOTE | 2019-12-27 16:10 | Progress Note ---
DATE: SUBJECTIVE: Mr. Davis remains in intensive care unit. The patient is on Vapotherm. OBJECTIVE: HEENT: He is not icteric. NECK: Supple. CHEST: Few crackles. COR: S1 and S2. No S3, S4, or murmur. ABDOMEN: Soft. LABORATORY DATA: His white count is 14.59 today and hemoglobin 12. Sodium 135, potassium 4.6, and creatinine 0.96. The patient is on Neurontin, azithromycin, Pepcid, vitamin C, vitamin D, and Lovenox. We will discontinue azithromycin. We will discontinue Rocephin. Continue supportive care. We will follow. MD CARLENE Campos/SHERICE /[id number]
--- NOTE | 2019-12-27 17:56 | NUR ---
Nutrition Intervention Note RD Recommendation(s) for Physician: - Recommend adding 1800 ADA to current diet - Recommend Glucerna Shake TID for added nutrition and encourage PO intake Plan of Care: RD following and monitoring for tolerance and adequacy, oral supplement recommendation Nutrition reason for involvement: follow up RD Assessment 12/26: Follow up. Chart reviewed. Pt has varied intake ranging from 0-75% of meals since admission. Pt continues with non-rebreather for respiratory status. Recommend Glucerna nutrition supplement for added nutrition. Will continue to monitor. 12/22: 74 YOM admitted for Covid-19, evaluated today for LOS. No reported poor intake or wt loss upon admit per admit H&P. Pt with poor intake, 0-25% of meals since admit. Pt requiring Vapotherm and non-rebreather for respiratory status. Pt pending transfer to ICU for higher level of care. Chart reviewed. Will continue to monitor. Principal Problems/Diagnoses: Covid-19 URI, hypoxia PMH: DM2, hypothyroidism, HTN, HLD GI: LBM 12/26 x 5 Skin: intact Labs: (12/26) Na 135, BUN 27, Cr 0.96, Glu 118, Ca 8.0, AST 67 12/22: Na 140, K 4.2, BUN 23, Cr 0.79, Gluc 91, POC Gluc 143 Meds: antibiotics, pepcid, valsartan, vitamin C, vitamin D, lovenox, protonix, MV with minerals, levothyroxine, colace, zofran, insulin, zinc sulfate Ht: 69 in Wt: 182.31 lb BMI: 26.9 kg/m2 IBW: 160 lb Malnutrition Evaluation (12/23/19) Unable to assess due to current isolation protocol, will continue to evaluate as able. Nutrition Prescription (Diet Order): Cardiac Estimated Nutritional Needs: Calories: 8439-3998 (18-20 kcal/kg/d) Weight used: CBW Protein: 83-124 (1-1.5 g/kg/d) Weight used: CBW Diet Adequacy: Not meeting calorie needs, Not meeting protein needs Tolerance: unable to assess Diet Education Needs Assessment: Diet education not indicated. Nutrition Care Level: Moderate Nutrition Diagnosis: Inadequate energy and protein intake related to current medical conditions as evidenced by not meeting needs. Goal: Patient will meet 75-100% of estimated needs by follow up Progress: progressing Interventions: CHO modified diet, liquid supplement Monitoring/Evaluation: Total energy intake, Total protein intake, Weight change Signed: Victoria Armstrong RD, LD
--- NOTE | 2019-12-27 18:41 | Progress Note ---
DATE: SUBJECTIVE: The patient is complaining of abdominal discomfort. He is not having relief with the Pepcid. He is still on a Vapotherm with 40 L of air and 100% oxygen. He has a non-rebreather over the Vapotherm. PHYSICAL EXAMINATION: VITAL SIGNS: The patient is afebrile. The blood pressure is 92/60 and the temperature is 100.1. The patient is saturating 96%. HEENT: Shows no facial swelling or erythema. CARDIAC: Reveals regular rate and rhythm with normal S1, S2. LUNGS: Auscultation of lungs reveals rhonchorous breath sounds bilaterally. There is no wheezing. ABDOMEN: Soft and nontender. There is no rebound or guarding. EXTREMITIES: Shows no leg edema or calf tenderness. There is no cyanosis or clubbing. SKIN: Shows no rashes. NEUROLOGICAL: Shows no focal abnormalities. LABORATORY DATA: White blood cell count is 10.6 and hemoglobin is 12. The platelet count is 249. The BUN to creatinine ratio is normal. The sodium is 135 and albumin is 1.5. RADIOGRAPHIC DATA: Abdominal ultrasound shows gallstones. IMPRESSION: 1. Acute respiratory failure. 2. Viral pneumonia and COVID-19 infection. 3. Cholelithiasis. 4. Acute kidney injury. 5. Diabetes. PLAN: 1. Continue Vapotherm. 2. General surgery consult regarding cholelithiasis. 3. Continue Lovenox. 4. Complete dexamethasone. MD DIONISIO Denise/SHERICE /[id number]
[2019-12-27] MEDS: INSULIN GLARGINE 100 UNITS/ML VIAL SQ SCH (20:59)
[2019-12-28] VITALS (26 sets, daily range): BP systolic 61–152; BP diastolic 41–94
[2019-12-28] MEDS: ONDANSETRON HCL INJ 2MG/ML 2ML 2 MG/ML VIAL IV PRN (02:46)
[2019-12-28] MEDS ORDERED: ACETAMINOPHEN 1000 MG/100 ML IV STA (03:21)
[2019-12-28] MEDS ORDERED: METOCLOPRAMIDE HCL 10 MG/2ML VIAL IV ONE (03:30)
[2019-12-28] MEDS ORDERED: LACTATED RINGER'S 1,000 ML INJ SCH (03:45)
[2019-12-28] MEDS ORDERED: PANTOPRAZOLE 40 MG 10ML VIAL IV SCH (03:45)
--- NOTE | 2019-12-28 04:33 | NUR ---
PATIENT BEGAN TO HAVE HEMATURIA WITH NOW 2 DIAPERS AND PAIN ON URINATION. PT HISTORY SHOWS DR CABELLO ASSIST WITH BPH ISSUES, CALLED TO NOTIFY DR MARTEL AND ORDERED TO CONSULT DR CABELLO. WILL CONT TO MONITOR.
[2019-12-28] MEDS: LEVOTHYROXINE SODIUM 50 MCG TAB PO SCH (04:55)
[2019-12-28] MEDS: METOCLOPRAMIDE HCL 10 MG/2ML VIAL IV SCH ×3 (04:55→18:16)
[2019-12-28] MEDS: GABAPENTIN 100 MG CAP PO SCH ×3 (04:55→19:49)
[2019-12-28 05:06] LABS: BASOPHILS % 0.2 % (0.0-1.0); EOSINOPHILS % 0.2 % (0.0-6.0); HEMATOCRIT 34.9 % (38.2-49.6); HEMOGLOBIN 11.5 g/dL (14.0-18.0); LYMPHOCYTES # (AUTO) 0.3 (1.0-3.2); LYMPHOCYTES % 2.2 % (18.0-39.1); MEAN CORPUSCULAR HEMOGLOBIN 28.3 pg (28-32); MEAN CORPUSCULAR VOLUME 85.7 fL (81-99); MONOCYTES # (AUTO) 0.4 (0.2-0.8); MONOCYTES % 2.9 % (4.4-11.3); NEUTROPHILS # (AUTO) 12.5 (2.1-6.9); NEUTROPHILS % 93.9 % (38.7-80.0); PLATELET COUNT 259 x10e3/uL (140-360); RED BLOOD COUNT 4.07 x10e6/uL (4.3-5.7); RED CELL DISTRIBUTION WIDTH 13.9 % (11.7-14.4)
[2019-12-28 05:15] LABS: ALANINE AMINOTRANSFERASE 34 IU/L (0-55); ALBUMIN 1.2 g/dL (3.5-5.0); ALBUMIN/GLOBULIN RATIO 0.3 (0.8-2.0); ALKALINE PHOSPHATASE 64 IU/L (40-150); BLOOD UREA NITROGEN 37 mg/dL (7-26); BUN/CREATININE RATIO 34 (6-25); CARBON DIOXIDE 24 mmol/L (22-29); CHLORIDE 102 mmol/L (98-107); EST GLOMERULAR FILTRATION RATE > 60 ML/MIN (60-); GLUCOSE 151 mg/dL (74-118); SODIUM 134 mmol/L (136-145)
[2019-12-28 05:31] LABS: INR 1.21; PROTHROMBIN TIME 16.1 seconds (11.9-14.5)
[2019-12-28 05:32] LABS: PARTIAL THROMBOPLASTIN TIME 31.5 seconds (23.8-35.5)
[2019-12-28] MEDS ORDERED: ACETAMINOPHEN 1000 MG/100 ML IV PRN (06:00)
[2019-12-28] MEDS ORDERED: ACETAMINOPHEN 1000 MG/100 ML IV SCH (06:00)
[2019-12-28] MEDS: INSULIN REGULAR, HUMAN 100 UNIT/1 ML 3ML VIAL SQ SCH ×3 (07:30→18:30)
[2019-12-28] MEDS: ASCORBIC ACID 500 MG TAB PO SCH ×2 (09:00→17:00)
[2019-12-28] MEDS: CHOLECALCIFEROL 400 UNIT TAB PO SCH ×2 (09:00→17:00)
[2019-12-28] MEDS: VALSARTAN 80 MG TAB PO SCH (09:00)
[2019-12-28] MEDS: TAMSULOSIN HCL 0.4 MG CAP PO SCH (09:00)
[2019-12-28] MEDS: ZINC SULFATE 220 MG CAP PO SCH (09:00)
[2019-12-28] MEDS: MULTIVITAMINS/MINERALS TAB PO SCH (09:00)
[2019-12-28] MEDS: FENOFIBRATE 145 MG TAB PO SCH (09:00)
[2019-12-28] MEDS: FAMOTIDINE 20 MG/2 ML VIAL IV SCH ×2 (09:26→18:17)
[2019-12-28] MEDS: PANTOPRAZOLE 40 MG 10ML VIAL IV SCH ×2 (09:26→22:48)
--- NOTE | 2019-12-28 09:47 | Diagnostic Imaging Report ---
EXAMINATION: CHEST SINGLE (PORTABLE) INDICATION: resp failure COMPARISON: None FINDINGS: AP view TUBES and LINES: None. LUNGS/PLEURA: Lungs are well inflated. There are bilateral patchy opacities compatible with multifocal pneumonia, unchanged. Increased bibasilar opacities which could be due to atelectasis or effusion. HEART AND MEDIASTINUM: The cardiomediastinal silhouette is obscured by adjacent opacities. BONES AND SOFT TISSUES: No acute osseous lesion. Soft tissues are unremarkable. UPPER ABDOMEN: No free air under the diaphragm. IMPRESSION: Bilateral patchy opacities compatible with multifocal pneumonia. Increased bibasilar opacities could be due to atelectasis or effusion. Signed by: Jacky Crandall MD on 12/28/2019 9:43 AM
[2019-12-28] MEDS ORDERED: DEXMEDETOMIDINE HCL 200 MCG in SODIUM CHLORIDE 0.9% 50ML 48 ML IV PRN (14:15)
--- NOTE | 2019-12-28 14:35 | Progress Note ---
DATE: SUBJECTIVE: The patient is complaining of being thirsty. He has some abdominal discomfort. He was seen by GI last night. He has cholelithiasis; cholecystitis seems unlikely. He was scheduled for HIDA scan this morning, but there was held because his condition was too unstable. He remains on Vapotherm at 40 L with 100%. He is wearing a non-rebreather over the Vapotherm. He also has some dyspnea. He has minimal cough. PHYSICAL EXAMINATION: VITAL SIGNS: The blood pressure is 113/50 and the saturation is 90%. HEENT: Shows no facial swelling or erythema. CARDIAC: Reveals regular rate and rhythm with normal S1, S2. LUNGS: Auscultation of lungs reveals rhonchorous breath sounds bilaterally. There is no wheezing. ABDOMEN: Soft, nontender. There is no rebound or guarding. EXTREMITIES: Shows no leg edema or calf tenderness. There is no cyanosis or clubbing. SKIN: Shows no rashes. NEUROLOGICAL: Shows no focal abnormalities. LABORATORY DATA: BUN to creatinine ratio is 37 to 1.1 and the sodium is 134. Other electrolytes are within normal limits. Albumin is 1.2. Blood sugars 150 to 200. White blood cell count is 13.2 and hemoglobin is 11.5. The platelet count is 259. RADIOGRAPHIC DATA: Chest x-ray shows patchy bilateral infiltrates. IMPRESSION: 1. Acute respiratory failure. 2. Viral pneumonia and COVID-19 infection. 3. Cholelithiasis. 4. Acute kidney injury. 5. Diabetes. PLAN: 1. Continue Vapotherm and 100% non-rebreather. 2. Continue symptomatic treatment for dyspepsia and cholelithiasis. 3. Continue Lovenox. 4. Add dexamethasone. 5. Judicious use of lactated Ringer's. 6. Repeat electrolytes, BUN and creatinine along with CBC tomorrow. Rafael Blackburn MD [facility]/LEEL /[id number]
[2019-12-28] MEDS ORDERED: DEXMEDETOMIDINE 200MCG/NS 50ML 50 ML IV ONE (15:10)
[2019-12-28] MEDS ORDERED: FENTANYL CITRATE INJ 2,000 MCG in SODIUM CHLORIDE 0.9% 250ML 210 ML IV PRN (16:15)
[2019-12-28] MEDS: MIDAZOLAM HCL 5MG/ML 10ML VIAL 100 ML IV PRN ×2 (16:30→21:00)
[2019-12-28] MEDS ORDERED: ROCURONIUM BROMIDE 250 MG in SODIUM CHLORIDE 0.9% 250ML 225 ML IV SCH (17:15)
--- NOTE | 2019-12-28 18:09 | Diagnostic Imaging Report ---
EXAMINATION: CHEST SINGLE (PORTABLE) INDICATION: intubation COMPARISON: Multiple prior chest x-ray examinations most recent performed earlier same day FINDINGS: AP view TUBES and LINES: There is a new endotracheal tube in place with distal tip 5 cm above the level of toyin.. LUNGS/PLEURA: Slightly improved bilateral patchy opacities compatible with multifocal pneumonia. Improved bibasilar opacities which could be due to atelectasis or effusion. HEART AND MEDIASTINUM: The cardiomediastinal silhouette is obscured by adjacent opacities. BONES AND SOFT TISSUES: No acute osseous lesion. Soft tissues are unremarkable. UPPER ABDOMEN: No free air under the diaphragm. IMPRESSION: Slightly improved bilateral patchy opacities compatible with improving multifocal pneumonia. Improving bibasilar opacities could be due to improving atelectasis or effusion. Signed by: Jacky Crandall MD on 12/28/2019 6:06 PM
--- NOTE | 2019-12-28 18:21 | Operative Report ---
DATE OF PROCEDURE: SURGEON: Rafael Blackburn MD PROCEDURE: Endotracheal intubation with GlideScope. PREOPERATIVE DIAGNOSIS: Respiratory failure. POSTOPERATIVE DIAGNOSIS: Respiratory failure. CONSENT: Consent was obtained from the patient. MEDICATIONS: Versed 2 mg, etomidate 20 mg, and succinylcholine 120 mg. DESCRIPTION OF PROCEDURE: The patient was placed in supine position. He was premedicated with Versed. He then received etomidate, followed by his succinylcholine. A 3-0 GlideScope was used to visualize the glottis. An 8.0 endotracheal tube was passed through the vocal cords on the first attempt. There was good CO2 return and equal breath sounds bilaterally. The patient was placed on the ventilator. COMPLICATIONS: None. ESTIMATED BLOOD LOSS: None. Rafael Blackburn MD [facility]/MODL /[id number]
[2019-12-28] MEDS ORDERED: ACETAMINOPHEN 325 MG SUPP PR PRN (18:30)
--- NOTE | 2019-12-28 19:00 | NUR ---
IM- progress note O/N see below ROS; unreliable v/s; revd PE tired appearing anicteric ns1s2 Reduced BS soft nt nd no e/t skin dry flat affect awake; labs/meds revd A/P: Viral pneumonitis- ceftiraxone/azithromycin/dexamethasone; O2 support. MAHI- IVF UTI- IV ceftiraxone DM- lantus; hab1c/lipids BPH- flomax HTN Hypothyroidism- synthroid Prop: lovenox; dispo: f/u COVID testing; 7-1 Hba1c/LDL ; cont care; 7-2 treat cough; improving; 7-3 check renal fn; 7-4 renal fn improving; SNF pending; 7-5 cont supportive care; 7-6 moved to ICU 7-7 cont care; 7-8 Vapotherm; supportive care; XR no change. 7-9 FEver overnight; Severe sepsis POA; worsening leukocytosis; Hypoglycemia- reduce insulin by 15 units; 7-10 gallstones; fatty liver. 7-11 infiltrates in lungs improving; Cholelithiasis- sx eval; Humphrey Feliz MD, PhD.
--- NOTE | 2019-12-28 19:24 | NUR ---
The patient presented with increasing anxiety and air hunger. Respiratory rate in 40's, Proning attempted, pt unable to be proned, respiratory decompensation noted. Family updated on the patient status. Dr. Blackburn at bedside, pt intubated at 1615, orders received for restraints, NGT and F/C. PICC line orders given, Telephone Consent given by Daughter. ETT tube placement confirmed with CXR. Patient temp 102.4. Dr. Blackburn notified, new orders received, pt medicated with tylenol suppository. Patient was dysynchronous with the vent, Dr. Blackburn notified and the patient was placed on a paralytic.
--- NOTE | 2019-12-28 20:00 | NUR ---
DR WASHBURN CAME TO SEE PATIENT ORDERED IV TYLENOL FOR FEVER PT ABOUT TO GET PICC LINE AND 250 ML BOLUS OF LR FOR LOWERING BP. WILL CONT TO MONITOR.
[2019-12-28] MEDS ORDERED: LACTATED RINGER'S 1,000 ML ONE (20:15)
[2019-12-28] MEDS: LACTATED RINGER'S 1,000 ML INJ SCH (21:02)
[2019-12-28] MEDS: INSULIN GLARGINE 100 UNITS/ML VIAL SQ SCH (21:25)
[2019-12-28] MEDS: FENTANYL 2000MCG/NS 250 250 ML IV PRN (21:58)
--- NOTE | 2019-12-28 22:12 | NUR ---
CALLED TO NOTIFY DR MARTEL THAT PT BP HAS CONT TO STAY LOW DESPITE 250ML BOLUS OF LR AND HE ORDERED PT TO START LEVOPHED. WILL CONT TO MONITOR PT.
[2019-12-28] MEDS ORDERED: NOREPINEPHRINE 8 MG/D5W 250 ML 250 ML ONE (22:20)
[2019-12-28] MEDS: NOREPINEPHRINE INJ 4MG/4ML 8 MG in DEXTROSE 5% 250ML 250 ML IV SCH ×3 (22:32→23:41)
[2019-12-28] MEDS: ACETAMINOPHEN 1000 MG/100 ML IV PRN (23:27)
--- NOTE | 2019-12-28 23:41 | NUR ---
PATIENT HAS BEEN MAXED OUT ON LEVOPHED AT THIS TIME @ 30MCG/MIN AND BP STILL VERY LOW, DR NOVOA HERE TO SEE PATIENT AND WANTS TO ADD IV ALBUMIN TO PATIENT'S MEDS. ROUNDED WITH HIM IN THE PATIENT'S ROOM AT THIS TIME.
[2019-12-29] VITALS (30 sets, daily range): BP systolic 58–117; BP diastolic 31–61
[2019-12-29] MEDS ORDERED: SODIUM BICARBONATE 8.4% INJ 50 ML SYR IV STA ×2 (00:08→01:32)
--- NOTE | 2019-12-29 00:11 | NUR ---
CALLED TO NOTIFY DR WASHBURN THAT PT WAS PUT ON LEVOPHED AND HAS MAXED OUT BUT BP STILL LOW, IV TYLENOL HAS NOT HELPED PT FEVER. DR WASHBURN ORDERED 1L BOLUS OF LR, 1 AMP BICARB, STAT CBC AND CMP, STAT CHEST XRAY, 1GM VANCO X1, 1GM MERREM NOW AND Q8H. WILL CONT TO MONITOR PT.
[2019-12-29] MEDS ORDERED: VANCOMYCIN 1GM/NS 250 ML 250 ML IV ONE (00:15)
[2019-12-29] MEDS ORDERED: LACTATED RINGER'S 1,000 ML INJ ONE (00:15)
--- NOTE | 2019-12-29 00:38 | Diagnostic Imaging Report ---
EXAMINATION: CHEST XRAY LINE PLACEMENT INDICATION: PICC line and NG tube placement, verify positions. COMPARISON: Chest x-ray 12/28/2019 FINDINGS: TUBES and LINES: New right upper extremity PICC, tip terminates at the superior cavoatrial junction. Enteric tube courses into the left upper abdomen at the expected location of the stomach. ET tube tip 3.7 cm above toyin. LUNGS: Extensive bilateral patchy airspace disease. PLEURA: No pleural effusion or pneumothorax. HEART AND MEDIASTINUM: The cardiomediastinal silhouette is unremarkable. BONES AND SOFT TISSUES: No acute osseous lesion. Soft tissues are unremarkable. UPPER ABDOMEN: No free air under the diaphragm. IMPRESSION: New right upper extremity PICC, tip terminates at the superior cavoatrial junction. Enteric tube courses into the left upper abdomen at the expected location of the stomach. Extensive airspace disease/infection. Signed by: Toney Lepe DO on 12/29/2019 12:34 AM
--- NOTE | 2019-12-29 00:39 | Diagnostic Imaging Report ---
EXAM: Abdomen Radiograph 1 View(s) INDICATION: NG tube placement, verify position. COMPARISON: Abdominal CT 11/08/2018 FINDINGS: Extensive airspace haziness. Enteric tube tip in the left upper abdomen at the expected location of the stomach. Normal volume of stool in the colon. No dilated loops of small bowel. No abnormal soft tissue masses. No pneumoperitoneum. Degenerative changes in the lumbar spine. Cholelithiasis. IMPRESSION: Enteric tube tip in the left upper abdomen at the expected location of the stomach. Pneumonia. Signed by: Toney Lepe DO on 12/29/2019 12:36 AM
[2019-12-29] MEDS: METOCLOPRAMIDE HCL 10 MG/2ML VIAL IV SCH ×5 (00:42→22:54)
[2019-12-29 00:49] LABS: BASOPHILS % 0.2 % (0.0-1.0); EOSINOPHILS % 0.1 % (0.0-6.0); HEMATOCRIT 37.4 % (38.2-49.6); HEMOGLOBIN 11.5 g/dL (14.0-18.0); LYMPHOCYTES # (AUTO) 0.4 (1.0-3.2); LYMPHOCYTES % 2.4 % (18.0-39.1); MEAN CORPUSCULAR HEMOGLOBIN 28.6 pg (28-32); MEAN CORPUSCULAR HGB CONC 30.7 g/dL (31-35); MONOCYTES # (AUTO) 0.6 (0.2-0.8); MONOCYTES % 3.5 % (4.4-11.3); NEUTROPHILS # (AUTO) 15.8 (2.1-6.9); PLATELET COUNT 307 x10e3/uL (140-360); RED BLOOD COUNT 4.02 x10e6/uL (4.3-5.7); RED CELL DISTRIBUTION WIDTH 14.2 % (11.7-14.4)
[2019-12-29 00:52] LABS: ABG PCO2 77 mmHg (35-45); ABG PH 7.17 (7.35-7.45); ABG PO2 61 mmHg (80-105)
[2019-12-29 00:53] LABS: ABG HCO3 28 mmol/L (22-26)
[2019-12-29 00:58] LABS: ABG PH 7.17 (7.35-7.45)
[2019-12-29 00:59] LABS: ABG HCO3 28 mmol/L (22-26); ABG PCO2 77 mmHg (35-45); ABG PO2 61 mmHg (80-105)
[2019-12-29 01:11] LABS: ALBUMIN 1.2 g/dL (3.5-5.0); ALBUMIN/GLOBULIN RATIO 0.3 (0.8-2.0); ANION GAP 16.1 mmol/L (8-16); CALCIUM 7.9 mg/dL (8.4-10.2); CREATININE, SERUM 2.36 mg/dL (0.72-1.25)
[2019-12-29 01:15] LABS: ABG HCO3 28 mmol/L (22-26); ABG PCO2 77 mmHg (35-45); ABG PH 7.17 (7.35-7.45); ABG PO2 61 mmHg (80-105)
[2019-12-29 01:25] LABS: POTASSIUM 6.1 mmol/L (3.5-5.1)
--- NOTE | 2019-12-29 01:27 | NUR ---
CALLED DR WASHBURN TO NOTIFY THAT PT BP STILL LOW DESPITE GETTING 1L BOLUS LR, 1AMP BICARB, PT CMP SHOWS POTASSIUM OF 6.1 AND KIDNEY FUNCTION DECREASE. ORDERED TO START VASOPRESSIN, GIVE ANOTHER 2 AMPS BICARB, GIVE 30GM KAYEXALATE VIA NG TUBE, REPEAT ABG, CONSULT DR MCGUIRE FOR RENAL. ED DR WASHBURN THAT DR NOVAO STARTED THE ALBUMIN IV FOR PT. WILL CONT TO MONITOR.
[2019-12-29] MEDS ORDERED: ALBUMIN 25% 25GM 100ML 0.25 GM/ML BTL IV ONE ×2 (01:30→02:00)
[2019-12-29] MEDS ORDERED: VASOPRESSIN INJ 20 UNIT/ML VIAL ONE (01:37)
[2019-12-29] MEDS ORDERED: DEXTROSE 5% 100ML 100 ML IV ONE (01:37)
[2019-12-29] MEDS ORDERED: SOD POLYSTYRENE SULFONATE SUSP 15 GM/60 ML BTL PO ONE (01:45)
[2019-12-29] MEDS: VASOPRESSIN 100 UNIT in DEXTROSE 5% 100ML 95 ML IV SCH ×2 (02:22→16:45)
--- NOTE | 2019-12-29 03:07 | NUR ---
DR WASHBURN WAS CALLED BY RT (WHILE BESIDE NURSE) AN READ ABG RESULTS AND HE ORDERED HER TO MAKE VENT CHANGES THEN I SPOKE WITH HIM AND HE ORDERED 500 NS BOLUS WHEN ED ABOUT PT BEING MAXED OUT ON VASOPRESSIN @0.07UNITS/MIN AND LEVOPHED @30MCG/MIN, ED AT THIS TIME PT URINE OUTPUT IS 250ML SINCE 1899, AND HE WANTED CHARGE NURSE TO SET UP CVP WITH PICC LINE. PT CURRENT BP AT THIS TIME IS 81/52. WILL CONT TO ANITA PT.
--- NOTE | 2019-12-29 03:09 | NUR ---
CALLED TO NOTIFY DR WASHBURN OF CHEST XRAY RESULTS THAT SHOW NO PNEUMOTHORAX OR PLEURAL EFFUSION. WILL CONT TO MONITOR PATIENT.
--- NOTE | 2019-12-29 03:09 | Diagnostic Imaging Report ---
EXAMINATION: CHEST SINGLE (PORTABLE) INDICATION: Respiratory failure COMPARISON: Chest x-ray 12/28/2019 FINDINGS: TUBES and LINES: ET tube in the lower intrathoracic trachea. Right upper extremity PICC tip terminates in the superior cavoatrial junction. Enteric tube courses into left upper abdomen, tip out of field of view. LUNGS: Diffuse airspace disease PLEURA: No pleural effusion or pneumothorax. HEART AND MEDIASTINUM: The cardiomediastinal silhouette is unremarkable. There are atherosclerotic calcifications within the aorta. BONES AND SOFT TISSUES: No acute osseous lesion. Soft tissues are unremarkable. UPPER ABDOMEN: No free air under the diaphragm. IMPRESSION: Stable support apparatus. Extensive pneumonia. Signed by: Toney Lepe DO on 12/29/2019 3:06 AM
[2019-12-29] MEDS ORDERED: SODIUM CHLORIDE 0.9% 1000ML 1,000 ML ONE ×5 (03:10→21:45)
[2019-12-29] MEDS ORDERED: SODIUM CHLORIDE 0.9% 500ML 500 ML IV ONE ×3 (03:15→22:45)
[2019-12-29] MEDS: NOREPINEPHRINE INJ 4MG/4ML 8 MG in DEXTROSE 5% 250ML 250 ML IV SCH ×5 (03:26→21:11)
[2019-12-29] MEDS ORDERED: NOREPINEPHRINE 8 MG/D5W 250 ML 250 ML ONE ×2 (03:29→07:24)
[2019-12-29 03:49] LABS: ABG BASE EXCESS 28.9 mmol/L (-2 - 3); ABG HCO3 2 mmol/L (22-26); ABG PCO2 67 mmHg (35-45); ABG PH 7.24 (7.35-7.45); ABG PO2 49 mmHg (80-105)
[2019-12-29] MEDS: LEVOTHYROXINE SODIUM 50 MCG TAB PO SCH (05:24)
[2019-12-29] MEDS: GABAPENTIN 100 MG CAP PO SCH ×3 (05:24→20:11)
[2019-12-29] MEDS: ALBUMIN 25% 25GM 100ML 0.25 GM/ML BTL IV SCH ×4 (05:24→22:53)
[2019-12-29] MEDS ORDERED: ALBUMIN 25% 25GM 100ML 0.25 GM/ML BTL IV SCH (06:00)
[2019-12-29] MEDS: MEROPENEM 1GM 100 ML IV SCH ×3 (06:11→20:10)
[2019-12-29] MEDS: INSULIN REGULAR, HUMAN 100 UNIT/1 ML 3ML VIAL SQ SCH ×2 (06:12)
--- NOTE | 2019-12-29 06:29 | NUR ---
AT THIS TIME PATIENT IS STABLE, BP IS 96/58 WITH HR 99, TEMP 98.6 CORE, 100% O2 SAT, RESP 30 ON VENT, CVP 6. PATIENT STILL ON VASOPRESSIN @ 4.2ML/HR, LEVOPHED 49ML/HR, LR @ 75ML/HR, FENTANYL 8.8ML/HR. CALLED AND NOTIFIED DR HANSEN OF CONSULT AND AWAITING CALL BACK. WILL CONT TO MONITOR.
[2019-12-29 08:48] LABS: BASOPHILS % 0.2 % (0.0-1.0); EOSINOPHILS % 0.3 % (0.0-6.0); HEMATOCRIT 33.7 % (38.2-49.6); HEMOGLOBIN 10.3 g/dL (14.0-18.0); LYMPHOCYTES # (AUTO) 0.5 (1.0-3.2); LYMPHOCYTES % 4.4 % (18.0-39.1); MEAN CORPUSCULAR HEMOGLOBIN 27.8 pg (28-32); MEAN CORPUSCULAR HGB CONC 30.6 g/dL (31-35); MEAN CORPUSCULAR VOLUME 90.8 fL (81-99); MONOCYTES # (AUTO) 0.5 (0.2-0.8); MONOCYTES % 4.1 % (4.4-11.3); NEUTROPHILS # (AUTO) 10.8 (2.1-6.9); NEUTROPHILS % 90.2 % (38.7-80.0); PLATELET COUNT 249 x10e3/uL (140-360); RED BLOOD COUNT 3.71 x10e6/uL (4.3-5.7); RED CELL DISTRIBUTION WIDTH 14.6 % (11.7-14.4)
[2019-12-29] MEDS: FAMOTIDINE 20 MG/2 ML VIAL IV SCH ×2 (08:57→18:32)
[2019-12-29] MEDS: PANTOPRAZOLE 40 MG 10ML VIAL IV SCH ×2 (08:57→20:10)
[2019-12-29] MEDS: ZINC SULFATE 220 MG CAP PO SCH (09:00)
[2019-12-29 09:05] LABS: ALBUMIN 1.9 g/dL (3.5-5.0); ALBUMIN/GLOBULIN RATIO 0.6 (0.8-2.0); ANION GAP 14.6 mmol/L (8-16); CALCIUM 7.3 mg/dL (8.4-10.2); CREATININE, SERUM 2.36 mg/dL (0.72-1.25); POTASSIUM 5.6 mmol/L (3.5-5.1)
[2019-12-29] MEDS: FENOFIBRATE 145 MG TAB PO SCH (09:13)
[2019-12-29] MEDS: ASCORBIC ACID 500 MG TAB PO SCH ×2 (09:13→18:32)
[2019-12-29] MEDS: TAMSULOSIN HCL 0.4 MG CAP PO SCH (09:13)
[2019-12-29] MEDS: CHOLECALCIFEROL 400 UNIT TAB PO SCH ×2 (09:13→18:32)
[2019-12-29] MEDS: MULTIVITAMINS/MINERALS TAB PO SCH (09:13)
[2019-12-29] MEDS ORDERED: DEXTROSE 50% SYRINGE 50 ML IV PRN (10:00)
[2019-12-29 10:49] LABS: ABG PCO2 64 mmHg (35-45); ABG PH 7.25 (7.35-7.45); ABG PO2 117 mmHg (80-105)
[2019-12-29 10:50] LABS: ABG HCO3 28 mmol/L (22-26)
--- NOTE | 2019-12-29 10:58 | Progress Note ---
DATE: Pulmonary Critical Care SUBJECTIVE: The patient required intubation and mechanical ventilation last night. The patient had subsequent decreases in blood pressure. He was started on pressors and received intravenous fluid bolus. He is now on Levophed 30 mcg along with vasopressin at 0.08. The patient is currently on a PRVC mode of ventilation at a rate of 30 with a tidal volume of 400 and a PEEP of 14. His FiO2 is set at 85%. His peak airway pressure is 34 and his mean airway pressure is 21. OBJECTIVE: VITAL SIGNS: Blood pressure is now 96/60 on the above pressures. His saturation is 99% on the above ventilator settings. He has an oral endotracheal tube in place. He has a PICC line in place. CARDIAC: Reveals regular rate and rhythm with normal S1 and S2. LUNGS: Auscultation of lungs reveals rhonchus breath sounds bilaterally. There is no wheezing. ABDOMEN: Soft, nontender. There is no rebound or guarding. EXTREMITIES: Shows no leg edema or calf tenderness. There is no cyanosis or clubbing. SKIN: Shows no rashes. NEUROLOGICAL: Shows no focal abnormalities. The patient is still sedated, but his sedation has been held temporarily. LABORATORY DATA: White blood cell count 11.9, hemoglobin is 10.3. The platelet count is 249. The BUN to creatinine ratio is 56 to 2.36, and the potassium is 5.6. AST is 2550. Albumin is 1.9. Blood sugar is 250. Chest x-ray shows extensive pneumonia. ASSESSMENT: 1. Acute respiratory failure. 2. Viral pneumonia coronavirus disease-19 infection. 3. Acute renal failure. 4. Diabetes with hyperglycemia. 5. Cholelithiasis. 6. Bacterial pneumonia with septic shock. PLAN: 1. Continue current antibiotics. 2. Continue to wean ventilator as tolerated and check ABGs. 3. Nephrology consultation with possible dialysis or ultrafiltration. 4. Placement of arterial line. 5. Continue enteral feedings. 6. Begin insulin drip. 7. Continue DVT prophylaxis. 8. Case discussed with family, shift supervisor melting nursing, dayshift nursing, Respiratory, Cardiology, and Nephrology. Greater than 35 minutes in direct critical care time apart from any procedures performed. Rafael Blackburn MD [facility]/MODL /[id number]
--- NOTE | 2019-12-29 12:13 | Operative Report ---
DATE OF PROCEDURE: SURGEON: Rafael Blackburn MD PROCEDURE: Right IJ Trialysis catheter placement under ultrasound guidance. PREOPERATIVE DIAGNOSIS: Acute renal failure. POSTOPERATIVE DIAGNOSIS: Acute renal failure. CONSENT: Consent was obtained from the patient and the family. MEDICATIONS: 1% lidocaine for local anesthesia. DESCRIPTION OF PROCEDURE: The patient was prepped sterilely in the right neck. An ultrasound machine was used to locate the right internal jugular vein. The area was anesthetized with 1% lidocaine. A full-length sterile gown, sterile drape, sterile gloves and mask were used. The internal jugular vein was cannulated under direct visualization with a 16-gauge needle. A wire was passed through the needle. The skin was then dilated with a series of dilators and a Trialysis catheter was placed over the wire by the Seldinger technique. All the ports flushed. COMPLICATIONS: None. ESTIMATED BLOOD LOSS: None. Rafael Blackburn MD [facility] /[id number]
--- NOTE | 2019-12-29 12:27 | Diagnostic Imaging Report ---
Examination: Single AP view of the chest. COMPARISON: 12/29/2019 INDICATION: Hypoxia DISCUSSION: Lines/tubes: Right IJ catheter placement with the tip overlying the SVC. Enteric and endotracheal tubes are stable. Lungs: Stable diffuse pneumonia, most prominent peripherally. Pleura: There is no pleural effusion or pneumothorax. Heart and mediastinum: The heart and the mediastinum are unremarkable. Bones and soft tissues: No acute bony abnormalities. IMPRESSION: 1. Stable diffuse pneumonia 2. Right IJ catheter placement with tip over the SVC. Signed by: Dr. De Roche M.D. on 12/29/2019 12:24 PM
--- NOTE | 2019-12-29 12:33 | Consultation ---
DATE OF CONSULTATION: Cardiology Consultation CHIEF COMPLAINT: The patient is a 74-year-old with respiratory failure. HISTORY OF PRESENT ILLNESS: The patient is a 74-year-old who was admitted with COVID-19 viral pneumonia and developed respiratory failure requiring intubation. The patient has also developed acute renal failure and will require dialysis. There has been no reported chest pain and no report of cardiac issues. PAST MEDICAL HISTORY: Significant for: 1. Diabetes. 2. Hypertension. 3. Hypothyroidism. 4. Benign prostatic hypertrophy. 5. Previous cystoscopy. SOCIAL HISTORY: The patient has not been a drinker and does not smoke. FAMILY HISTORY: There is no significant family history of heart disease. PHYSICAL EXAMINATION: GENERAL: The patient is intubated male on the ventilator. VITAL SIGNS: The patient's temperature was 98.9, blood pressure 104/60, pulse was 94. HEAD, EARS, EYES, NOSE, AND THROAT: The patient's cranium was normocephalic, atraumatic. Extraocular muscles intact. Sclerae were anicteric. NECK: Supple. No jugular venous distention. No carotid bruits. CHEST: Demonstrated rhonchi bilaterally. CARDIAC: Demonstrated normal S1 and S2 with a short 2/6 systolic murmur. ABDOMEN: Demonstrated good bowel sounds. No tenderness and no masses. EXTREMITIES: There was 1+ edema bilaterally. NEUROLOGIC: Neurologic status was difficult to assess due to the patient being paralyzed and sedated on the ventilator. DIAGNOSTIC DATA: 1. The patient's EKG demonstrated normal sinus rhythm with some nonspecific ST and T-wave changes. 2. There was normal left ventricular size and function with an ejection fraction of 60%. CONCLUSION: The patient has respiratory failure from COVID pneumonia and now has developed acute renal failure. The patient is in normal sinus rhythm and has normal left ventricular size and function on the echocardiogram. The patient's cardiac status is currently stable. Robert Blackburn MD [facility] /[id number]
[2019-12-29] MEDS: INSULIN REGULAR, HUMAN 3ML VL 100 UNIT in SODIUM CHLORIDE 0.45% 100 ML 99 ML IV SCH ×4 (12:34→21:21)
--- NOTE | 2019-12-29 12:38 | Operative Report ---
DATE OF PROCEDURE: SURGEON: Rafael Blackburn MD PROCEDURE: Femoral arterial line placement. PREOPERATIVE DIAGNOSIS: Pneumonia. POSTOPERATIVE DIAGNOSIS: Pneumonia. CONSENT: Consent was obtained from the family. MEDICATIONS: Lidocaine for local anesthesia. PROCEDURE IN DETAIL: Left groin was prepped sterilely. A 16-gauge catheter was used to cannulate the femoral artery. A wire was passed through the needle. An arterial catheter 20-gauge was then passed over the wire by the Seldinger technique. There was good arterial waveform. COMPLICATIONS: None. ESTIMATED BLOOD LOSS: 5 mL. Rafael Blackburn MD [facility]/MODL /[id number]
[2019-12-29] MEDS: LACTATED RINGER'S 1,000 ML INJ SCH ×2 (14:55→20:11)
[2019-12-29] MEDS ORDERED: MANNITOL 25% 12.5GM/50ML 100 ML ONE (15:01)
[2019-12-29] MEDS ORDERED: HEPARIN SOD (PORCINE) 1000 UNIT/ML SDV IV SCH (17:30)
[2019-12-29] MEDS ORDERED: MANNITOL 25% 12.5GM/50 ML VIAL IV PRN (17:30)
[2019-12-29] MEDS ORDERED: SODIUM CHLORIDE 0.9% 1000ML 2,000 ML IV PRN (17:30)
[2019-12-29] MEDS ORDERED: ROCURONIUM BROMIDE 1 ML IV ONE (18:14)
[2019-12-29] MEDS ORDERED: ROCURONIUM BROMIDE 10 MG/ML 5ML VIAL IV NR (18:30)
--- NOTE | 2019-12-29 19:26 | NUR ---
Dr. Paez aware of CMP results. Dr. Jose Daniel Blackburn informed of new consult. Dr. Paez gave orders for trialysis catheter and Hemodialysis. Dr. Laura Blackburn at bedside to insert trialysis catheter and femoral line Telephone consent obtained from daughter Lyudmila Lui for dialysis, trialysis and femoral line placement. Dr. Laura Blackburn informed of elevated BG orders given for insulin drip. Per Dr. Laura Blackburn ok to use RIJ trialysis catheter. Dialysis done today. Pt overbreathing on ventilator and desaturating to low 80's, despite sedation increased. Dr. Laura Blackburn aware and gave orders for rocuronium one time dose.
--- NOTE | 2019-12-29 19:35 | Consultation ---
DATE OF CONSULTATION: Initial Nephrology Consultation Report REASON FOR CONSULTATION: Acute kidney injury. HISTORY OF PRESENT ILLNESS: Mr. Davis is a 74-year-old male, who is here in the ICU at [facility]. He is intubated. He is on a ventilator. He is not able to give a history, so the history is obtained from the patient's medical record, nursing staff, and caregivers. I have been kindly asked to see this patient in regard to a serum creatinine of 2.36. He apparently presented to the hospital several days ago with some shortness of breath and fever. He has been diagnosed with COVID pneumonia. When the patient was admitted, his serum creatinine was about 2.17. During the course of his hospitalization, his renal function actually normalized. His serum creatinine went down to normal to 0.8 to 0.9. However, in the last 24 to 36 hours, his serum creatinine begin to rise again and today his serum creatinine was 2.36. Yesterday it was 1.10, but on the , it was normal at 0.96. The patient right now is on pressors. He is in shock. He is on 2 pressors. This patient now here in the ICU. Initially, when the patient was admitted, he was on Vapotherm, but over the last 2 to 3 days, respiratory situation became difficult. He ended up requiring intubation with mechanical ventilation. Now the patient is in shock. The patient incidentally also has been discovered to have gallstones. Initially when some labs were done today, he had a serum potassium of 6.1, BUN and creatinine of 50 and 2.3 respectively. He had a blood gas that was done also last night and it showed a pH of 7.17, pCO2 of 77, PO2 61, and bicarb of 28. This morning blood gas, pH 7.24, pCO2 67, and bicarb of 2. PAST MEDICAL HISTORY: 1. The patient apparently has a history of also some type of benign prostatic hypertrophy, some prostatism. 2. Hypertension. 3. Diabetes. 4. Hypothyroidism. REVIEW OF SYSTEMS: As per HPI. PHYSICAL EXAMINATION: VITAL SIGNS: Currently, the patient's blood pressure is 106/56. He is on 2 pressors. Pulse is between 80 and 110. GENERAL: The patient is intubated. He is on a mechanical ventilator. He is sedated. HEENT: No increased JVD. CARDIOVASCULAR: Tachycardic. LUNGS: Scattered high-pitched squeals bilaterally. ABDOMEN: Decreased bowel sounds. EXTREMITIES: No significant edema. LABORATORY RESULTS: Sodium 136, potassium 5.6, chloride 100, bicarbonate 27, BUN and creatinine 56 and 2.3 respectively. Calcium is 7.3 and albumin 1.9. AST 2550. IMPRESSION: 1. Acute kidney injury. Second time, the patient has gone into acute renal failure secondary to septic shock secondary to SIRS, secondary to decreased effective renal blood flow, and shock. 2. Septic shock. 3. Hypotension. 4. Sepsis. 5. Metabolic acidosis. 6. Hyperkalemia. 7. COVID pneumonia. 8. Oliguria. PLAN: The patient is going into renal failure. Right now, we have him on lactated Ringer, but the potassium is a little bit high. We will need to probably change that to half-normal saline with maybe one amp of sodium bicarb, although the bicarb is not bad. I think to alleviate the potassium, we need to probably have the patient dialyzed today. Otherwise, he will become more hypercatabolic. I think this dialysis will also take care of his electrolyte derangement as well. NSAIDs, CHRISTIE-2, and IV contrast should be avoided. We will continue the IV fluids just with normal saline at this time. He is developing ATN-type picture. I will follow the patient with you. Thank you, Dr. Blackburn and Dr. Yin for this consultation. Ather MD [facility] /[id number]
[2019-12-29] MEDS: MIDAZOLAM HCL 5MG/ML 10ML VIAL 100 ML IV PRN (19:52)
[2019-12-29] MEDS: FENTANYL 2000MCG/NS 250 250 ML IV PRN (19:53)
--- NOTE | 2019-12-29 20:13 | NUR ---
IM- progress note O/N see below ROS; unreliable v/s; revd PE tired appearing anicteric ns1s2 Reduced BS soft nt nd no e/t skin dry flat affect awake; labs/meds revd A/P: Viral pneumonitis- ceftiraxone/azithromycin/dexamethasone; O2 support. MAHI- IVF UTI- IV ceftiraxone DM- lantus; hab1c/lipids BPH- flomax HTN Hypothyroidism- synthroid Prop: lovenox; dispo: f/u COVID testing; 7-1 Hba1c/LDL ; cont care; 7-2 treat cough; improving; 7-3 check renal fn; 7-4 renal fn improving; SNF pending; 7-5 cont supportive care; 7-6 moved to ICU 7-7 cont care; 7-8 Vapotherm; supportive care; XR no change. 7-9 FEver overnight; Severe sepsis POA; worsening leukocytosis; Hypoglycemia- reduce insulin by 15 units; 7-10 gallstones; fatty liver. 7-11 infiltrates in lungs improving; Cholelithiasis- sx eval; 7-12 MAHI and fever; continue antimicrobials and O2 support; Humphrey Feliz MD, PhD.
[2019-12-29] MEDS: INSULIN GLARGINE 100 UNITS/ML VIAL SQ SCH (21:00)
[2019-12-29] MEDS: ACETAMINOPHEN 1000 MG/100 ML IV PRN (21:11)
--- NOTE | 2019-12-29 21:16 | NUR ---
PATIENT'S DAUGHTER, MANNY MCKINNEY, CALLED TO ASK HOW PT IS DOING ED AT THIS TIME PT BP 110/41 AND VENT SETTINGS PER HER REQ ALSO ED ABOUT DIALYSIS TODAY, INSULIN DRIP AND THAT IT IS UP TO DRS ABOUT DIALYSIS GOING FORWARD AND THEY WOULD HAVE TO MAKE THAT DECISION. 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 ED AT THIS TIME PT IS STABLE. WILL CONT TO MONITOR. Addendum: 12/29/19 at 1794 by Kimmie Tamayo RN DURING THIS PHONE CONVERSATION PATIENT'S DAUGHTER ASKED IF THERE WAS A NEED TO ADD ANOTHER PRESSOR IF THEY WOULD BE NOTIFIED AND I SAID DO YOU WANT US TO NOTIFY YOU IF WE HAVE TO AND SHE SAID YES TO CALL THEM BEFORE BECAUSE SHE DOESN'T KNOW IF THEY WANT TO GO THAT FAR. TOLD HER I WOULD PASS THIS ON TO THE DOCTOR.
--- NOTE | 2019-12-29 21:35 | NUR ---
DR WASHBURN CALLED TO ORDER STAT ABG AND NOTIFIED PT BP HAS JUST BEGUN TO DROP AT THIS TIME IT IS 68/[address] WASHBURN ED THAT DAUGHTER WANTS THEM TO CALL, PER THE DISCUSSION NOTED EARLIER SHA, IF THEY HAVE TO ADD ANOTHER PRESSOR TO PT MEDS AND HE STATES HE DON'T THINK IT WILL HELP BUT ORDERED NS BOLUS. AT THIS TIME PT SEDATION WAS STOPPED. WILL CONT TO MONITOR.
--- NOTE | 2019-12-29 21:42 | NUR ---
LAB POSTED ABG RESULTS UNDER 12/28 DATE WITH 2141 TIME BUT THESE ARE THE EXACT RESULTS FOR 12/27 AT 214 WHICH ARE ALREADY ENTERED. CALLED LAB TO NOTIFY OF THE DISCREPANCY AND THEY STATE ONLY RT ENTER THESE NUMBERS, NOTIFIED RT DELONTE THAT THE RESULTS WERE DUPLICATES AND THAT ANOTHER STAT ABG WAS ORDERED FOR NOW.
--- NOTE | 2019-12-29 22:07 | NUR ---
DR MARTEL CAME BY TO SEE THE PT AN ED PT'S CURRENT CONDITION INCLUDING CONVERSATION WITH FAMILY AND DR WASHBURN NOTED BEFORE AND HE STATES HE WILL CALL FAMILY TOMORROW IF NECESSARY.
[2019-12-29 22:49] LABS: ABG HCO3 28 mmol/L (22-26); ABG PCO2 69 mmHg (35-45); ABG PH 7.22 (7.35-7.45); ABG PO2 98 mmHg (80-105)
--- NOTE | 2019-12-29 23:21 | NUR ---
CALLED DR WASHBURN AND ED PT HAS RECEIVED BOLUS NS ORDERED, ALBUMIN IV, STOPPED ALL SEDATION, GOT TYLENOL FOR FEVER AND STILL AT 102.3 CURRENT BP 76/51 MAP 60. ED CURRENT LABS, ABG AND HE STATES THE ONLY THING HE CAN DO IS HAVE RT INCREASE TV FROM 400 TO 410 BUT THERE'S NOTHING ELSE AT THIS TIME. WILL CONT TO MONITOR PT.
[2019-12-30] VITALS (29 sets, daily range): BP systolic 65–141; BP diastolic 15–57
[2019-12-30] MEDS ORDERED: LACTATED RINGER'S 1,000 ML INJ ONE (00:15)
[2019-12-30] MEDS: INSULIN REGULAR, HUMAN 3ML VL 100 UNIT in SODIUM CHLORIDE 0.45% 100 ML 99 ML IV SCH ×4 (00:51→23:47)
[2019-12-30] MEDS: FENTANYL 2000MCG/NS 250 250 ML IV PRN ×2 (01:47→18:20)
[2019-12-30 04:33] LABS: BASOPHILS % 0.2 % (0.0-1.0); EOSINOPHILS % 0.4 % (0.0-6.0); HEMOGLOBIN 8.5 g/dL (14.0-18.0); LYMPHOCYTES # (AUTO) 0.4 (1.0-3.2); LYMPHOCYTES % 3.8 % (18.0-39.1); MEAN CORPUSCULAR HEMOGLOBIN 28.4 pg (28-32); MEAN CORPUSCULAR HGB CONC 30.4 g/dL (31-35); MEAN CORPUSCULAR VOLUME 93.6 fL (81-99); MONOCYTES # (AUTO) 0.3 (0.2-0.8); MONOCYTES % 2.6 % (4.4-11.3); NEUTROPHILS # (AUTO) 9.9 (2.1-6.9); NEUTROPHILS % 92.5 % (38.7-80.0); PLATELET COUNT 127 x10e3/uL (140-360); RED BLOOD COUNT 2.99 x10e6/uL (4.3-5.7)
[2019-12-30 04:44] LABS: INR 1.73; PROTHROMBIN TIME 21.5 seconds (11.9-14.5)
[2019-12-30 04:45] LABS: PARTIAL THROMBOPLASTIN TIME 41.4 seconds (23.8-35.5)
[2019-12-30 04:54] LABS: ALBUMIN 2.4 g/dL (3.5-5.0); ANION GAP 14.1 mmol/L (8-16); CALCIUM 7.1 mg/dL (8.4-10.2); CREATININE, SERUM 2.4 mg/dL (0.72-1.25); POTASSIUM 5.1 mmol/L (3.5-5.1)
[2019-12-30] MEDS: METOCLOPRAMIDE HCL 10 MG/2ML VIAL IV SCH ×4 (04:57→23:49)
[2019-12-30] MEDS: GABAPENTIN 100 MG CAP PO SCH ×3 (04:58→21:12)
[2019-12-30] MEDS: LEVOTHYROXINE SODIUM 50 MCG TAB PO SCH (04:58)
[2019-12-30 05:02] LABS: BILIRUBIN,URINE NEGATIVE (NEGATIVE); CLARITY,URINE CLOUDY (CLEAR); COLOR,URINE YELLOW (YELLOW); KETONES,URINE NEGATIVE (NEGATIVE); LEUKOCYTE ESTERASE ,URINE NEGATIVE (NEGATIVE); NITRITE,URINE NEGATIVE (NEGATIVE); URINE UROBILINOGEN 1 mg/dL (0.2 - 1)
[2019-12-30 05:03] LABS: PROTEIN,URINE DIPSTICK 2+ (NEGATIVE)
[2019-12-30 05:15] LABS: BACTERIA,URINE MANY /HPF; EPITHELIAL CELLS,URINE FEW /LPF; RBC,URINE 21-50 /HPF (0-5); TRANSITIONAL EPI CELLS,URINE FEW; WBC,URINE (MAN) 21-50 /HPF (0-5)
--- NOTE | 2019-12-30 05:33 | NUR ---
CALLED DR WASHBURN TO UPDATE ON PT CONDITION, AT THIS TIME PT BP IS 132/54 PULSE 98 AND ED THAT LACTIC IS 3.5 AND UA SENT SHOWING INFECTION AND CULTURE BEING DONE, ED PT GOT A LITER BOLUS OF LR. HE STATES HE WILL COME SEE HIM. WILL CONT TO MONITOR.
[2019-12-30] MEDS: ALBUMIN 25% 25GM 100ML 0.25 GM/ML BTL IV SCH (05:55)
[2019-12-30] MEDS: MEROPENEM 1GM 100 ML IV SCH (06:27)
--- NOTE | 2019-12-30 08:36 | Diagnostic Imaging Report ---
EXAMINATION: CHEST SINGLE (PORTABLE) INDICATION: Respiratory failure COMPARISON: Multiple prior chest radiograph, most recently 12/29/2019 FINDINGS: LINES/TUBES:Endotracheal tube terminates 5 cm above the toyin. Enteric tube unchanged. Right IJ central venous catheter and right PICC line terminates in the superior vena cava. EKG leads overlie the chest. LUNGS:The lungs are moderately inflated. Persistent bilateral multifocal hazy airspace opacities. PLEURA:No pleural effusion or pneumothorax. MEDIASTINUM:The cardiomediastinal silhouette appears normal in size and shape. BONES/SOFT TISSUES:No acute osseous injury. ABDOMEN:No free air under the diaphragm. IMPRESSION: No significant interval change. Signed by: Garrick Tellez MD on 12/30/2019 8:33 AM
[2019-12-30] MEDS: ASCORBIC ACID 500 MG TAB PO SCH ×2 (09:00→18:18)
[2019-12-30 09:16] LABS: ABG HCO3 22 mmol/L (22-26); ABG PCO2 52 mmHg (35-45); ABG PH 7.24 (7.35-7.45); ABG PO2 98 mmHg (80-105)
[2019-12-30] MEDS: CHOLECALCIFEROL 400 UNIT TAB PO SCH ×2 (10:00→18:18)
[2019-12-30] MEDS: ZINC SULFATE 220 MG CAP PO SCH (10:00)
[2019-12-30] MEDS: TAMSULOSIN HCL 0.4 MG CAP PO SCH (10:00)
[2019-12-30] MEDS: FAMOTIDINE 20 MG/2 ML VIAL IV SCH ×2 (10:01→18:18)
[2019-12-30] MEDS: PANTOPRAZOLE 40 MG 10ML VIAL IV SCH ×2 (10:01→21:10)
[2019-12-30] MEDS: FENOFIBRATE 145 MG TAB PO SCH (10:02)
[2019-12-30] MEDS: MULTIVITAMINS/MINERALS TAB PO SCH (10:02)
--- NOTE | 2019-12-30 10:12 | Progress Note ---
DATE: Pulmonary Critical Care Progress Note SUBJECTIVE: The patient is still requiring Levophed at 30 mcg as well as vasopressin at 0.08. He received some additional lactated Ringer's last night to improve his blood pressure to a MAP between 65 and 70. He does have small amount of urine output. He is not responded well when sedation is held. PHYSICAL EXAMINATION: VITAL SIGNS: The T-max is 100.6, blood pressure is 119/55, and his saturation is currently 100%. He is on a PRVC mode of ventilation at a rate of 30 with a tidal volume of 410. His FiO2 is set at 80% and his PEEP is set at 14. HEENT: Shows no facial swelling or erythema. The patient has an oral endotracheal tube in place. There is a dialysis catheter in the right IJ. The site looks clean. There is no drainage. CARDIAC: Reveals regular rate and rhythm with normal S1 and S2. LUNGS: Auscultation of lungs reveals rhonchorous breath sounds bilaterally. There is no wheezing. ABDOMEN: Soft. There is no tenderness. He does have femoral line in place. He has poor perfusion to his feet and has cold feet. LABORATORY DATA: The white blood cell count is 10.7 and hemoglobin is 8.5. The platelet count is 127. The BUN to creatinine ratio is 52 to 2.4. Other electrolytes are within normal limits. The lactic acid is 3.5 and the total bilirubin is 1.3. The AST is 1770 and the ALT is 806. The albumin is 2.4. The blood gas this morning is 7.24, 52, 98, and 22. RADIOGRAPHIC DATA: Chest x-ray shows bilateral infiltrates. IMPRESSION: 1. Bacterial pneumonia with severe sepsis. 2. Acute renal failure. 3. Underlying viral pneumonia and COVID-19 infection. 4. Prostatic hypertrophy. 5. Diabetes. 6. Cholelithiasis. 7. Benign prostatic hypertrophy. 8. Metabolic encephalopathy. PLAN: 1. Continue current antibiotics. Check random vancomycin level. 2. Increase tidal volume and slightly increase respiratory rate to 32 to correct hypercapnia. 3. Continue pressors and try and wean as tolerated. 4. Enteral feedings as tolerated. 5. Insulin as needed. 6. Discussed ultrafiltration or dialysis with Nephrology. 7. Continue Lovenox. 8. Case discussed with night manager nursing, day shift nursing, Respiratory, Dr. Feliz of Internal Medicine, Nephrology, and family. Greater than 35 minutes in direct critical care time apart from any procedures performed. MD DIONISIO Denise/SHERICE /[id number]
[2019-12-30] MEDS: NOREPINEPHRINE INJ 4MG/4ML 8 MG in DEXTROSE 5% 250ML 250 ML IV SCH ×2 (10:23→15:46)
[2019-12-30] MEDS ORDERED: SODIUM CHLORIDE 0.9% 500ML 500 ML IV ONE (11:45)
[2019-12-30] MEDS: LINEZOLID 600 MG/D5W 300ML 300 ML IV SCH (12:26)
[2019-12-30] MEDS: LACTATED RINGER'S 1,000 ML INJ SCH (12:59)
[2019-12-30] MEDS ORDERED: VANCOMYCIN 1GM/NS 250 ML 250 ML IV STA (15:27)
--- NOTE | 2019-12-30 16:19 | Progress Note ---
DATE: SUBJECTIVE: Mr. Davis remains in intensive care unit. He is quite ill. He is still on Levophed 30 mcg. He is also on vasopressin at 0.08. He is on IV fluids. His blood pressure MAP between 65 to 70. OBJECTIVE: HEENT: Oral intubation. NECK: Supple. CHEST: Crackles. HEART: S1 and S2. No S3, S4, or murmur. ABDOMEN: Soft. LABORATORY DATA: His white count is 10 and hemoglobin 8.5. BUN 52 and creatinine 2.4. Lactic acid 3.5. IMPRESSION: 1. COVID-19, sepsis, respiratory failure, diabetes mellitus, cholelithiasis, benign prostatic hypertrophy, and metabolic encephalopathy. The patient is currently on linezolid today because of his kidney function and I stopped the vancomycin. Continue with diabetic controlled on vasopressors. Continue with meropenem at renal dose. 2. Acute kidney injury on chronic kidney disease. 3. Prognosis remains poor. Discussed with the medical team. We will plan on 7 to 8 days of IV antibiotic. MD CARLENE Campos/SHERICE /[id number]
[2019-12-30] MEDS: BALSAM PERU/CASTOR OIL 60 GM OINT...G. TP SCH (17:00)
[2019-12-30] MEDS: VASOPRESSIN 60 UNIT in DEXTROSE 5% 100ML 57 ML IV SCH (18:18)
--- NOTE | 2019-12-30 19:35 | NUR ---
PATIENT HAD A RUN OF SVT WITH HR OF 204 FOR ABOUT 12 SECONDS THEN CAME OUT OF IT ON HIS OWN, CHARGE NURSE AWARE, WILL CONT TO MONITOR.
[2019-12-30] MEDS ORDERED: NOREPINEPHRINE 8 MG/D5W 250 ML 250 ML ONE (20:24)
--- NOTE | 2019-12-30 20:36 | NUR ---
PATIENT HAD ANOTHER RUN OF SVT RATE AROUND 191 HELD FOR ABOUT 20 SEC THIS TIME, CHARGE NURSE AWARE AND CALLED TO NOTIFY Francisco Javier WASHBURN. NO ORDERS AT THIS TIME, WILL CONT TO MONITOR.
[2019-12-30 21:00] LABS: ABG HCO3 18 mmol/L (22-26); ABG PCO2 57 mmHg (35-45); ABG PO2 73 mmHg (80-105)
[2019-12-30] MEDS: INSULIN GLARGINE 100 UNITS/ML VIAL SQ SCH (21:00)
--- NOTE | 2019-12-30 21:06 | NUR ---
PATIENT RUN OF SVT AT RATE AROUND 180 LASTED ABOUT 35 SECONDS.
[2019-12-30] MEDS: MEROPENEM 500MG/ NS 50ML 50 ML IV SCH (21:10)
--- NOTE | 2019-12-30 21:21 | Consultation ---
DATE OF CONSULTATION: 12/30/2019 ADDITIONAL REFERRING PHYSICIAN: Rafael Blackburn MD. HISTORY OF PRESENT ILLNESS: The patient is a 74-year-old male who is not in the hospital with COVID pneumonia in the ICU on a ventilator requiring ventilatory support and also pressor support for his blood pressure. The patient on imaging has been found to have gallstones. Nurses report that prior to his requiring intubation, he had some complaints of abdominal pain, although not specific. He is currently not on tube feedings because of his overall critical condition, but he had been on tube feedings previously. PAST MEDICAL HISTORY: Significant for diabetes, hypertension, hypothyroidism. PAST SURGICAL HISTORY: He had previous cystoscopy. ALLERGIES: HE HAS NO ALLERGIES. MEDICATIONS: Listed in the chart. FAMILY HISTORY: Noncontributory. SOCIAL HISTORY: Cannot be obtained. Otherwise not a smoker or drinker. REVIEW OF SYSTEMS: Cannot be obtained. PHYSICAL EXAMINATION: GENERAL: The patient is in the ICU on a ventilator. VITAL SIGNS: Heart rate in the 90s. Temperature is a 100.7. Blood pressure currently is 126/60 on maximal pressor support. HEENT: Sclerae is not icteric. NECK: Has no masses. LUNGS: No rhonchi bilaterally. CARDIAC: Regular rate and rhythm. ABDOMEN: No distention. There is no definite tenderness. EXTREMITIES: Cool. LABORATORY DATA: White blood cell count 10.7, hemoglobin 8.5, hematocrit 28. Chemistries reveal slightly elevated bilirubin 1.3, AST and ALT also elevated while the alkaline phosphatase is normal. BUN is 50, creatinine is 2.4. ASSESSMENT: A 74-year-old male with COVID pneumonia in critical condition. He does have gallstones, although right now the stone appeared to be a source of sepsis. At this point, I recommend continuing supportive care as has been ordered. Overall prognosis is poor. Thank you for asking me to see Mr. Davis. MD MARIANNE Delgado/MODL /[id number]
--- NOTE | 2019-12-30 21:57 | NUR ---
IM- progress note O/N see below ROS; unreliable v/s; revd PE tired appearing anicteric ns1s2 Reduced BS soft nt nd no e/t skin dry flat affect awake; labs/meds revd A/P: Viral pneumonitis- ceftiraxone/azithromycin/dexamethasone; O2 support. MAHI- IVF UTI- IV ceftiraxone DM- lantus; hab1c/lipids BPH- flomax HTN Hypothyroidism- synthroid Prop: lovenox; dispo: f/u COVID testing; 7-1 Hba1c/LDL ; cont care; 7-2 treat cough; improving; 7-3 check renal fn; 7-4 renal fn improving; SNF pending; 7-5 cont supportive care; 7-6 moved to ICU 7-7 cont care; 7-8 Vapotherm; supportive care; XR no change. 7-9 FEver overnight; Severe sepsis POA; worsening leukocytosis; Hypoglycemia- reduce insulin by 15 units; 7-10 gallstones; fatty liver. 7-11 infiltrates in lungs improving; Cholelithiasis- sx eval; 7-12 MAHI and fever; continue antimicrobials and O2 support; 7-13 Time of service: 8am- remains intubated; cont IV abx per ID; 2 pressors; prognosis poor. Humphrey Feliz MD, PhD.
[2019-12-30] MEDS ORDERED: ACETAMINOPHEN 1000 MG/100 ML IV PRN (22:00)
[2019-12-30] MEDS: SODIUM BICARBONATE 8.4% 50 ML in DEXTROSE 5% 1,000 ML IV SCH (22:59)
[2019-12-30] MEDS ORDERED: LACTATED RINGER'S 1,000 ML ONE (23:40)
[2019-12-31] VITALS (15 sets, daily range): BP systolic 73–112; BP diastolic 35–60
[2019-12-31] MEDS: LINEZOLID 600 MG/D5W 300ML 300 ML IV SCH ×2 (01:03→12:00)
[2019-12-31] MEDS ORDERED: ALBUMIN 25% 12.5GM 50ML 150 ML IV ONE (01:37)
[2019-12-31] MEDS ORDERED: LACTATED RINGER'S 1,000 ML ONE (01:42)
[2019-12-31] MEDS ORDERED: ALBUMIN 25% 25GM 100ML 0.25 GM/ML BTL IV ONE ×2 (02:00)
[2019-12-31] MEDS: INSULIN REGULAR, HUMAN 3ML VL 100 UNIT in SODIUM CHLORIDE 0.45% 100 ML 99 ML IV SCH ×2 (02:44)
[2019-12-31] MEDS: ALBUMIN 25% 25GM 100ML 0.25 GM/ML BTL IV SCH ×2 (04:10→12:00)
[2019-12-31] MEDS: METOCLOPRAMIDE HCL 10 MG/2ML VIAL IV SCH ×2 (04:48→12:00)
[2019-12-31 04:49] LABS: BASOPHILS % 0.2 % (0.0-1.0); HEMATOCRIT 29.4 % (38.2-49.6); HEMOGLOBIN 8.7 g/dL (14.0-18.0); LYMPHOCYTES # (AUTO) 0.6 (1.0-3.2); LYMPHOCYTES % 3.2 % (18.0-39.1); MEAN CORPUSCULAR HEMOGLOBIN 27.9 pg (28-32); MEAN CORPUSCULAR HGB CONC 29.6 g/dL (31-35); MEAN CORPUSCULAR VOLUME 94.2 fL (81-99); MONOCYTES # (AUTO) 0.5 (0.2-0.8); MONOCYTES % 3.1 % (4.4-11.3); NEUTROPHILS # (AUTO) 16.2 (2.1-6.9); NEUTROPHILS % 92.2 % (38.7-80.0); PLATELET COUNT 78 x10e3/uL (140-360); RED BLOOD COUNT 3.12 x10e6/uL (4.3-5.7); RED CELL DISTRIBUTION WIDTH 15.7 % (11.7-14.4)
[2019-12-31 05:08] LABS: ALANINE AMINOTRANSFERASE 1912 IU/L (0-55); ALBUMIN 2.5 g/dL (3.5-5.0); ALBUMIN/GLOBULIN RATIO 1.1 (0.8-2.0); ALKALINE PHOSPHATASE 62 IU/L (40-150); ANION GAP 23.4 mmol/L (8-16); BLOOD UREA NITROGEN 69 mg/dL (7-26); BUN/CREATININE RATIO 16 (6-25); CARBON DIOXIDE 16 mmol/L (22-29); CHLORIDE 98 mmol/L (98-107); CREATININE, SERUM 4.38 mg/dL (0.72-1.25); EST GLOMERULAR FILTRATION RATE 13 ML/MIN (60-); GLUCOSE 295 mg/dL (74-118); SODIUM 131 mmol/L (136-145)
[2019-12-31 05:24] LABS: CALCIUM 6.7 mg/dL (8.4-10.2); POTASSIUM 6.4 mmol/L (3.5-5.1)
[2019-12-31] MEDS ORDERED: SODIUM BICARBONATE 8.4% INJ 50 ML SYR IV STA (05:39)
[2019-12-31] MEDS ORDERED: DEXTROSE 50% SYRINGE 50 ML IV STA (05:39)
--- NOTE | 2019-12-31 05:39 | NUR ---
CALLED DR WASHBURN TO NOTIFY OF PT LABS: POT 6.4, ANION GAP 23.4, CREAT 4.38, LACTIC ACID 9.0, CALCIUM 6.7, AST 4202, HGB 8.7, WBC 17.6 AN PT GOT 1L BOLUS LR OVERNIGHT FOR BP MGMT. ORDERED TO INCREASE BICARB DRIP TO 100ML/HR CONT, GIVE AMP D50, AMP BICARB AND 10 UNITS INSULIN IV THEN CALL RENAL TO NOTIFY. CALLED AND LEFT MESSAGE FOR DR HANSEN, AWAITING CALL BACK. WILL CONT TO MONITOR.
[2019-12-31] MEDS ORDERED: INSULIN REGULAR, HUMAN 100 UNIT/1 ML 3ML VIAL IV STA (05:45)
--- NOTE | 2019-12-31 05:56 | NUR ---
DR HANSEN CALLED AND WAS NOTIFIED OF PT LABS CHARTED PREVIOUSLY AND WHAT DR WASHBURN HAD ORDERED WELL HD WAS HELD 12/29 DUE TO PT BP. ORDERED TO CALL DIALYSIS FOR EMERGENT HD. NOTIFIED CHARGE NURSE AND CONTACTED [facility]. WILL CONT TO MONITOR PATIENT.
[2019-12-31] MEDS: GABAPENTIN 100 MG CAP PO SCH ×2 (06:00→14:00)
[2019-12-31] MEDS ORDERED: ALBUMIN 25% 25GM 100ML 0.25 GM/ML BTL IV SCH (06:00)
[2019-12-31] MEDS: LEVOTHYROXINE SODIUM 50 MCG TAB PO SCH (06:00)
[2019-12-31] MEDS: SODIUM BICARBONATE 8.4% 50 ML in DEXTROSE 5% 1,000 ML IV SCH ×2 (06:16→16:30)
--- NOTE | 2019-12-31 06:40 | NUR ---
DR MARTEL HERE AT BEDSIDE WITH PT AND NOTIFIED OF CURRENT CONDITION, LABS, ORDERS FROM DR WASHBURN AND DR HANSEN. DR MARTEL PROVIDED DAUGHTER MANNY PHONE NUMBER AND CALLED HER HERE TO NOTIFY OF PT CONDITION. AT THIS TIME HE STATES THE FAMILY STILL WANTS EVERYTHING DONE TO SAVE HIM AND HE WILL CALL THEM TOMORROW WITH ANY MORE UPDATES. WILL CONT TO MONITOR.
--- NOTE | 2019-12-31 08:02 | Diagnostic Imaging Report ---
Examination: Single AP view of the chest. COMPARISON: Portable chest 12/30/2019 INDICATION: Respiratory failure IMPRESSION: 1. Lines and Tubes: Supporting lines and tubes are unchanged. 2. No interval change in bilateral multifocal predominantly interstitial opacities, consistent with pneumonia. No pleural effusion. 3. Cardiomediastinal silhouette is normal. Pulmonary vasculature is normal. 4. No acute bony abnormalities. Signed by: Dr. Shree Garcia M.D. on 12/31/2019 7:59 AM
[2019-12-31] MEDS ORDERED: ALBUMIN 25% 12.5GM 0.25 GM/ML BTL IV PRN (08:45)
[2019-12-31] MEDS ORDERED: HEPARIN SOD (PORCINE) 1000 UNIT/ML SDV IV PRN (08:45)
[2019-12-31 08:55] LABS: MAGNESIUM 2.4 MG/DL (1.3-2.1); PHOSPHORUS 9.1 MG/DL (2.3-4.7)
[2019-12-31] MEDS: PANTOPRAZOLE 40 MG 10ML VIAL IV SCH (09:00)
[2019-12-31] MEDS: TAMSULOSIN HCL 0.4 MG CAP PO SCH (09:00)
[2019-12-31] MEDS: BALSAM PERU/CASTOR OIL 60 GM OINT...G. TP SCH ×2 (09:00→17:00)
[2019-12-31] MEDS: FAMOTIDINE 20 MG/2 ML VIAL IV SCH ×2 (09:00→17:00)
[2019-12-31] MEDS: FENOFIBRATE 145 MG TAB PO SCH (09:00)
[2019-12-31] MEDS: ZINC SULFATE 220 MG CAP PO SCH (09:00)
[2019-12-31] MEDS: ASCORBIC ACID 500 MG TAB PO SCH ×2 (09:00→17:00)
[2019-12-31] MEDS: MEROPENEM 500MG/ NS 50ML 50 ML IV SCH (09:00)
[2019-12-31] MEDS: MULTIVITAMINS/MINERALS TAB PO SCH (09:00)
[2019-12-31] MEDS: CHOLECALCIFEROL 400 UNIT TAB PO SCH ×2 (09:00→17:00)
[2019-12-31] MEDS ORDERED: CALCIUM GLUCONATE 10% INJ 4.65 MEQ in SODIUM CHLORIDE 0.9% 50ML 50 ML IV ONE (09:15)
--- NOTE | 2019-12-31 09:54 | NUR ---
ASSESSMENT: Spiritual distress Vegetable Loader Machine Operator consulted thru [facility] to coordinate "Last Rites" or Anointing of the Sick. Request made by Lyudmila, pt's daughter. Vegetable Loader Machine Operator called Lyudmila to clarify request. Pt's daughter states family has a auto body painter who may be willing to provide the Sacrament. Pt's daughter knows auto body painter will not be allowed to enter pt's room but to direct approved person w/ proper PPE to assist. Pt's daughter states she will contact to confirm his availability and return message to Vegetable Loader Machine Operator. Intervention: Provided empathic listening and facilitated conversation about logistics involved in family's request. Provided prayer and information on how to reach Vegetable Loader Machine Operator. Outcome: Pt's daughter expressed appreciation for support. Will follow as able. MAXIMO GARCIA Vegetable Loader Machine Operator Spiritual Care Department O: [phone]
--- NOTE | 2019-12-31 11:20 | NUR ---
ASSESSMENT: Spiritual Distress Pt's family experiencing anticipatory grief. Pt's daughters x2 and mother outside pt's room in ICU. Pt's family expressing emotions thru words and tears. Pt's family state they want to wait until after pt's son from [place] arrives before possibly changing his code status. Intervention: Provided calming pastoral presence and empathic listening. Facilitated conversation about appropriateness of pt's code status. Provided prayer. Outcome: Followed up with RN. Will continue to follow as able. MAXIMO GARCIA Supervisor Power Reactor Spiritual Care Department O: [phone]
[2019-12-31] MEDS ORDERED: SODIUM CHLORIDE 0.9% 500ML 500 ML IV ONE (11:30)
[2019-12-31] MEDS ORDERED: AMIODARONE HCL 900 MG in DEXTROSE 5% 500ML 500 ML IV SCH (11:45)
[2019-12-31] MEDS: VASOPRESSIN 60 UNIT in DEXTROSE 5% 100ML 57 ML IV SCH (12:00)
--- NOTE | 2019-12-31 13:34 | Progress Note ---
DATE: SUBJECTIVE: The patient continued to have low blood pressure and is requiring maximum Levophed and maximum vasopressin. The patient's potassium was elevated along with creatinine. He had worsening acidosis. The patient was started on dialysis this morning. The patient has developed atrial fibrillation. PHYSICAL EXAMINATION: VITAL SIGNS: Blood pressure is 100/44 on maximum Levophed and vasopressin. The heart rate is 98 and temperature is 101.7. The patient is on current ventilator settings with a PRVC at a rate of 28 with a tidal volume of 360 and a FiO2 of 100%. The PEEP is set at 16. HEENT: Shows no facial swelling or erythema. There is a right IJ line. The site looks clean. There is no drainage. CARDIAC: Reveals irregularly irregular rhythm with normal S1 and S2. LUNGS: Auscultation of lungs reveals crackles at the bases. There is no wheezing. There is a left femoral line and artery. ABDOMEN: Soft and nontender. There is no rebound or guarding. EXTREMITIES: There is no leg edema or calf tenderness. There is no cyanosis or clubbing. LABORATORY DATA: BUN to creatinine ratio is 69 to 4.38 and the potassium is 6.4. The bicarbonate is 16. The lactic acid is 9. Albumin is 2.5. White blood cell count is 17.6 and the hemoglobin is 8.7. The platelet count is 78. RADIOGRAPHIC DATA: Chest x-ray shows bilateral infiltrates. IMPRESSION: 1. Acute respiratory failure. 2. Bacterial pneumonia with sepsis and septic shock. 3. Acute renal failure. 4. Diabetes. 5. Cholelithiasis. 6. Atrial fibrillation. 7. Metabolic encephalopathy. PLAN: 1. Continue dialysis as tolerated. 2. Continue pressors. 3. Continue current antibiotics. 4. The patient received insulin and D50 along with bicarbonate for the elevated potassium this morning. 5. Continue bicarbonate drip. 6. Continue Lovenox. 7. Family is here. They are preparing for possible terminal extubation. They are awaiting a son. Greater than 35 minutes in direct critical care time. Rafael Blackburn MD [facility]/MODL /[id number]
--- NOTE | 2019-12-31 16:40 | NUR ---
1548 family decided to turn pressors off at this time. family remained on unit until pt . restraints removed at [address] Blackburn pronounced. life gift notified. pt not candidate for organ donor d/t covid dx
--- NOTE | 2019-12-31 18:18 | NUR ---
RESTRAINT LOG DOCUMENTED; PT WAS NOT RESTRAINED WHEN HE ; CHARGE NURSE RELEASED RESTRAINTS @ 1640 ON 12-31-2019
--- NOTE | 2019-12-31 18:45 | Progress Note ---
DATE: SUBJECTIVE: Mr. Davis remains in intensive care unit. OBJECTIVE: VITAL SIGNS: Continues to have low blood pressure on maximum Levophed. HEENT: Normocephalic. NECK: Supple. CHEST: Few crackles. LABORATORY DATA: Reviewed. Chart reviewed. IMPRESSION: Sepsis and septic shock, respiratory failure, pneumonia, diabetes mellitus, coronavirus disease-19 on dialysis was on pressors. Prognosis remains mainly poor. He is currently on linezolid and meropenem. We will follow. MD CARLENE Campos/MODL /[id number]
--- NOTE | 2019-12-31 19:24 | NUR ---
IM- progress note O/N see below ROS; unreliable v/s; revd PE tired appearing anicteric ns1s2 Reduced BS soft nt nd no e/t skin dry flat affect awake; labs/meds revd A/P: Viral pneumonitis- ceftiraxone/azithromycin/dexamethasone; O2 support. MAHI- IVF UTI- IV ceftiraxone DM- lantus; hab1c/lipids BPH- flomax HTN Hypothyroidism- synthroid Prop: lovenox; dispo: f/u COVID testing; 7-1 Hba1c/LDL ; cont care; 7-2 treat cough; improving; 7-3 check renal fn; 7-4 renal fn improving; SNF pending; 7-5 cont supportive care; 7-6 moved to ICU 7-7 cont care; 7-8 Vapotherm; supportive care; XR no change. 7-9 FEver overnight; Severe sepsis POA; worsening leukocytosis; Hypoglycemia- reduce insulin by 15 units; 7-10 gallstones; fatty liver. 7-11 infiltrates in lungs improving; Cholelithiasis- sx eval; 7-12 MAHI and fever; continue antimicrobials and O2 support; 7-13 Time of service: 8am- remains intubated; cont IV abx per ID; 2 pressors; prognosis poor. 7-14 remains on 2 pressors; remains intubated; prognosis - poor; d/w daughter by telephone; considering DNR and care withdrawal. Humphrey Feliz MD, PhD.
--- NOTE | 2019-12-31 19:46 | NUR ---
WOUND CARE CONSULT FOR 74 YO MALE ADMITTED TO [facility] FOR URI, HYPOXIA AND COVID-19. MEHREEN 10 ON STRICT PUP STATUS AND INTERVENTIONS LABS: WBC- 17.60 HGB- 8.7 GLUCOSE-247 ALBUMIN 2.9 UNABLE TO COMPLETE SKIN ASSESSMENT; ICU NURSE REPORTED PT IS DESATURATING AND PT IS NOT STABLE FOR A WOUND CARE SKIN ASSESSMENT AT THE TIME. ICU NURSE TO CONSULT WOUND CARE NEEDED ONCE PT IS STABLE; WOUND CARE TO FOLLOW UP NEXT DAY. LEGAL INVESTIGATOR NURSE REPORTED PT TO HAVE A SACRAL ULCER WITH AN ALLEVYN FOAM IN PLACE TO OFFLOAD WOUND. RECOMMENDATIONS: NURSING TO CONTINUE TO MONITOR PATIENT AND KEEP SKIN CLEAN AND FREE FROM STOOL OR IRRITATING MOISTURE AND CONTINUE TO FOLLOW STRICT PUP INTERVENTIONS DAILY. NURSING TO CONTINUE REPOSITION PT SIDE TO SIDE EVERY TWO HOURS. NURSING TO CONTINUE TO OFFLOAD FOOT AND HEEL AT ALL TIMES WITH PILLOW SUSPENSION WHEN IN BED. NURSING TO CONTINUE TO ASSIST WITH PT NUTRITIONAL SUPPLEMENTS TO ENSURE PROPER REQUIREMENTS FOR HEALING. NURSING TO RE- CONSULT WOUND CARE NEEDED. Addendum: 12/31/19 at 1947 by Melony Mercado RN Amended: Links added.
--- NOTE | 2020-01-05 07:02 | NUR ---
Brief summary Cause of : COVID 19 causing PNA Details of hospitalization: Viral pneumonitis- ceftiraxone/azithromycin/dexamethasone; O2 support. MAHI- IVF UTI- IV ceftiraxone DM- lantus; hab1c/lipids BPH- flomax HTN Hypothyroidism- synthroid Prop: lovenox; dispo: f/u COVID testing; 7-1 Hba1c/LDL ; cont care; 7-2 treat cough; improving; 7-3 check renal fn; 7-4 renal fn improving; SNF pending; 7-5 cont supportive care; 7-6 moved to ICU 7-7 cont care; 7-8 Vapotherm; supportive care; XR no change. 7-9 FEver overnight; Severe sepsis POA; worsening leukocytosis; Hypoglycemia- reduce insulin by 15 units; 7-10 gallstones; fatty liver. 7-11 infiltrates in lungs improving; Cholelithiasis- sx eval; 7-12 MAHI and fever; continue antimicrobials and O2 support; 7-13 Time of service: 8am- remains intubated; cont IV abx per ID; 2 pressors; prognosis poor. 7-14 remains on 2 pressors; remains intubated; prognosis - poor; d/w daughter by telephone; considering DNR and care withdrawal. Humphrey Feliz MD, PhD.
== END 2019-12-31 22:24 | disposition expired | DRG 208 ==
LOC: ER 13:35 → ERHOLD 17:50 → IMCU 22:49 → ICU 12-22 21:47
PROVIDERS: ADMIT Internal Medicine; ATTEND Internal Medicine
PROC: 0BH17EZ Insertion of Endotracheal Airway into Trachea, Via Natural or Artificial Opening (ICD-10-PCS; principal; 2019-12-28)
PROC: 5A1945Z Respiratory Ventilation, 24-96 Consecutive Hours (ICD-10-PCS; 2019-12-28)
PROC: 03HY32Z Insertion of Monitoring Device into Upper Artery, Percutaneous Approach (ICD-10-PCS; 2019-12-29)
PROC: 02HV33Z Insertion of Infusion Device into Superior Vena Cava, Percutaneous Approach (ICD-10-PCS; 2019-12-29)
PROC: 5A1D70Z Performance of Urinary Filtration, Intermittent, Less than 6 Hours Per Day (ICD-10-PCS; 2019-12-29)
DX: U07.1 COVID-19 (principal); A41.9 Sepsis, unspecified organism; J96.00 Acute respiratory failure, unspecified whether with hypoxia or hypercapnia; R65.21 Severe sepsis with septic shock; G93.41 Metabolic encephalopathy; J12.89 Other viral pneumonia; J15.9 Unspecified bacterial pneumonia; N17.9 Acute kidney failure, unspecified; E87.2 Acidosis; D68.9 Coagulation defect, unspecified; K80.80 Other cholelithiasis without obstruction; N40.0 Benign prostatic hyperplasia without lower urinary tract symptoms; E03.9 Hypothyroidism, unspecified; Z87.442 Personal history of urinary calculi; E87.5 Hyperkalemia; N20.0 Calculus of kidney; I12.9 Hypertensive chronic kidney disease with stage 1 through stage 4 chronic kidney disease, or unspecified chronic kidney disease; N18.9 Chronic kidney disease, unspecified
CPT/HCPCS: 36415; 36569; 36600; 51700; 71045; 71260; 74018; 74019; 76700; 76770; 80048; 80053; 80061; 80202; 81001; 82140; 82550; 82553; 82805; 82947; 82948; 83036; 83605; 83735; 84100; 84484; 85025; 85610; 85730; 86704; 86705; 86706; 87040; 87086; 87340; 90962; 93005; 93306; 94002; 94003; 96372; 97139; 99284; J0330; J0456; J0610; J0696; J1100; J1644; J1650; J1815; J1817; J2020; J2150; J2250; J2405; J2765; J3370; J7030; J7040; J7050; J7060; J7070; J7121; J7799; P9047; Q9967; U0002